=== PATIENT | female | born 1995 | race Caucasian/White ===

== ENCOUNTER 2024-02-24 14:38 | Outpatient (OUT) | payer BC, SELFPAY ==
--- NOTE | 2024-02-24 14:48 | US_ITS ---
The [address] [address] Patient Name: JOE LINARES MRN: [id number] date: 1995 Sex: F Assigned Patient Location: Current Patient Location: Accession/Order Number: [id number] Exam Date: 02/24/2024 15:05 Report Date: 02/24/2024 16:26 At the request of: EUGENE MAYERS Procedure: US pelvis transvaginal EXAMINATION: US pelvis transvaginal HISTORY: Pelvic Pain COMPARISON: No relevant comparison available. FINDINGS: Transvaginal The uterus is normal in size, contour and echotexture measuring 7.5 x 4.4 x 3.3 cm per the uterus is anteverted. Endometrium measures 10.9 mm, normal The right ovary is normal measuring 3.2 x 2.4 x 2.0 cm. Normal color and Doppler flow. Left ovary is normal measuring 3.4 x 2.5 x 2.6 cm. Normal color and Doppler flow US/US pelvis transvaginal IMPRESSION: Normal pelvic ultrasound Electronically authenticated by: PJ TSOLL Date: 02/24/2024 16:26
== END 2024-02-24 14:39 | disposition home or self-care (01) ==
LOC: US 14:40
PROVIDERS: Visit Provider Obstetrics & Gynecology
DX: R10.2 Pelvic and perineal pain (principal)
CPT/HCPCS: 76830

== ENCOUNTER 2024-04-06 11:11 | Outpatient (OUT) | payer BC, SELFPAY ==
[2024-04-06 12:10] LABS: Basophils Absolute Auto 0.1 10^3/uL (0.0-0.1); Basophils Percent Auto 0.9 % (0.2-2.0); Eosinophils Absolute Auto 0.2 10^3/uL (0.0-0.7); Eosinophils Percent Auto 2.8 % (0.9-7.0); Hematocrit 39.2 % (36.0-48.0); Hemoglobin 12.8 g/dL (12.0-16.0); Immature Granulocytes Abs Auto 0.01 10^3/uL (0.00-0.03); Immature Granulocytes Pct Auto 0.2 % (0.0-0.5); Lymphocytes Absolute Auto 2.3 10^3/uL (1.2-3.8); Lymphocytes Percent Auto 39.1 % (20.5-60.0); Mean Corpuscular HGB Conc 32.7 g/dL (29.9-35.2); Mean Corpuscular Hemoglobin 30.5 pg (26.7-34.0); Mean Corpuscular Volume 93.6 fL (81.0-99.0); Mean Platelet Volume 10.7 fL (9.5-13.5); Monocytes Absolute Auto 0.4 10^3/uL (0.3-0.8); Monocytes Percent Auto 6.1 % (1.7-12.0); Neutrophils Absolute Auto 2.9 10^3/uL (1.4-6.5); Neutrophils Percent Auto 50.9 % (43.0-75.0); Platelet Count 205 10^3/uL (150-450); Red Blood Count 4.19 10^6/uL (4.20-5.40); Red Cell Distribution Width 11.6 % (11.0-15.0); White Blood Count 5.8 10^3/uL (4.0-11.0)
[2024-04-06 12:15] LABS: Alanine Aminotransferase 19 U/L (14-59); Albumin Globulin Ratio 1.2; Albumin Level 3.8 g/dL (3.4-5.0); Alkaline Phosphatase 45 U/L (46-116); Anion Gap 6.7; Aspartate Amino Transferase 19 U/L (15-37); BUN Creatinine Ratio 16.7; Bilirubin Direct 0.1 mg/dL (0.0-0.2); Bilirubin Total 0.4 mg/dL (0.2-1.0); Calcium 9.6 mg/dL (8.5-10.1); Carbon Dioxide 31.4 mmol/L (21.0-32.0); Chloride 104 mmol/L (98-107); Estimated GFR (African America >60 (>=60); Estimated GFR (Non-African Ame >60 (>=60); Globulin 3.1 g/dL; Glucose 102 mg/dL (74-106); Potassium 4.1 mmol/L (3.5-5.1); Sodium 138 mmol/L (136-145); Total Protein 6.9 g/dL (6.4-8.2)
[2024-04-06 12:44] LABS: INR 0.97; Partial Thromboplastin Time 25.9 sec (22.3-36.2); Prothrombin Time 10.3 sec (9.0-11.6)
== END 2024-04-06 11:12 | disposition home or self-care (01) ==
LOC: PST 11:12
PROVIDERS: Visit Provider Obstetrics & Gynecology
DX: Z01.812 Encounter for preprocedural laboratory examination (principal); R10.2 Pelvic and perineal pain
CPT/HCPCS: 80048; 80076; 85025; 85610; 85730

== ENCOUNTER 2024-04-15 07:50 | Day surgery (SDC) | payer BC, SELFPAY ==
[2024-04-06 11:53] VITALS: BP 108/64; PULSE 50; TEMP 36.4; O2SAT 100; BMI 21.5
[2024-04-15] VITALS (14 sets, daily range): BP systolic 115–149; BP diastolic 45–82; PULSE 40–75; TEMP 36.3–36.7; O2SAT 96–100; BMI 21.5
[2024-04-15 08:12] LABS: Basophils Percent Auto 0.6 % (0.2-2.0); Eosinophils Absolute Auto 0.2 10^3/uL (0.0-0.7); Eosinophils Percent Auto 3.9 % (0.9-7.0); Hematocrit 38.1 % (36.0-48.0); Hemoglobin 12.7 g/dL (12.0-16.0); Immature Granulocytes Abs Auto 0.01 10^3/uL (0.00-0.03); Immature Granulocytes Pct Auto 0.2 % (0.0-0.5); Lymphocytes Absolute Auto 2.1 10^3/uL (1.2-3.8); Lymphocytes Percent Auto 40.5 % (20.5-60.0); Mean Corpuscular HGB Conc 33.3 g/dL (29.9-35.2); Mean Corpuscular Hemoglobin 31.9 pg (26.7-34.0); Mean Corpuscular Volume 95.7 fL (81.0-99.0); Mean Platelet Volume 10.5 fL (9.5-13.5); Monocytes Absolute Auto 0.4 10^3/uL (0.3-0.8); Monocytes Percent Auto 8.1 % (1.7-12.0); Neutrophils Absolute Auto 2.4 10^3/uL (1.4-6.5); Neutrophils Percent Auto 46.7 % (43.0-75.0); Platelet Count 212 10^3/uL (150-450); Red Blood Count 3.98 10^6/uL (4.20-5.40); Red Cell Distribution Width 11.9 % (11.0-15.0); White Blood Count 5.1 10^3/uL (4.0-11.0)
[2024-04-15 08:24] LABS: Amphetamine Screen Urine NEGATIVE (NEGATIVE); Barbiturates Screen Urine NEGATIVE (NEGATIVE); Benzodiazepines Screen Urine NEGATIVE (NEGATIVE); Buprenorphine Screen Urine POSITIVE (NEGATIVE); Cannabinoid Screen Urine POSITIVE (NEGATIVE); Cocaine Screen Urine NEGATIVE (NEGATIVE); Methadone Screen Urine NEGATIVE (NEGATIVE); Methamphetamines Screen Urine NEGATIVE (NEGATIVE); Opiate Screen Urine NEGATIVE (NEGATIVE); Oxycodone Screen Urine NEGATIVE (NEGATIVE); Phencyclidine Screen Urine NEGATIVE (NEGATIVE); Tricyclic Antidepressant Urine NEGATIVE (NEGATIVE)
[2024-04-15 08:33] LABS: HCG Quantitative <1 mIU/mL
[2024-04-15] MEDS: LACTATED RINGER'S SOLUTION 1,000 ML 50 ML IV (08:37)
--- NOTE | 2024-04-15 11:16 | PM.ONB ---
Brief Operative Note Date of procedure: 04/15/24 Pre-op diagnosis general: pelvic pain Post-op diagnosis: same as pre-op Procedure: NAME OF PROCEDURE: [diagnostic laparoscopy ] PROCEDURE: The patient was taken back to the Operating Room where she was placed in dorsal lithotomy position after given general anesthesia. The patient was prepped and draped in normal sterile fashion. A sponge stick was placed into the patient's vagina. Attention was turned to the patient's abdomen, where a small umbilical incision was made. The fascia was tented using Alpesh clamps and the fascia was entered sharply. Confirmation of intraabdominal placement of the 10 mm port was confirmed under direct visualization using a laparoscope. The patient's abdomen was then insufflated using CO2 gas with approximately 4 liters. A second port was placed left laterally, this was done under direct visualization with a 5 mm port. Survey of the patient's abdomen demonstrated normal liver and gallbladder. Survey of the patient's pelvic anatomy demonstrated normal appearing rt and lt ovary and tubes as well as normal appearing uterus. No endometrial implants could be noted, no evidence of any pelvic disease was seen, normal appearing pelvic cavity. All instruments were removed from the patient's abdomen. The patient's abdomen was deinsufflated of CO2 gas. The patient tolerated the procedure well. Sponge stick was removed from the patient's vagina. The patient's infraumbilical fascia was closed using #0 Vicryl on a GI needle. The patient's skin was closed laterally and infraumbilically using 4-0 Vicryl. The patient tolerated the procedure well. Sponge, lap and needle counts were correct x 2. The patient was taken to Recovery Room in stable condition. Anesthesia: XENIA Surgeon: Raymundo Seals Material Control Manager: Jenny Staley Estimated blood loss (mL): 5 Pathology: none sent Condition: stable Disposition: PACU Urinary Catheter Management Urinary Catheter Management Urethral: Cath placed during this visit: no
[2024-04-15] MEDS: LACTATED RINGER'S SOLUTION 1,000 ML 75 ML IV (11:28)
[2024-04-15] MEDS: LIDOCAINE HCL 1% 100 MG/10 ML MDV INJ (11:29)
== END 2024-04-15 14:00 | disposition home or self-care (01) ==
LOC: SURGOUT 07:51
PROVIDERS: Visit Provider Obstetrics & Gynecology
PROC: (CPT 840; principal; 2024-04-15 09:15)
DX: R10.2 Pelvic and perineal pain (principal); Z90.49 Acquired absence of other specified parts of digestive tract; F17.290 Nicotine dependence, other tobacco product, uncomplicated
CPT/HCPCS: 49320; 36415; 80307; 84702; 85025; J0131; J1100; J1885; J2250; J2405; J2704; J2710

== ENCOUNTER 2024-04-29 12:05 | Emergency (ER) | payer BC, SELFPAY ==
[2024-04-29 12:11] VITALS: BP 110/60; PULSE 77; TEMP 36.8; O2SAT 98; BMI 23.0
--- OUTSIDE RECORDS SUMMARY | 2024-04-29 12:12 | XMS_ITS | CCD ---
Author Organization [facility] Care Team Providers Care Grey Percher Name Role Phone PROVIDER, UNKNOWN Unavailable Unavailable PROVIDER, UNKNOWN Unavailable Unavailable PROVIDER, UNKNOWN Unavailable Unavailable PROVIDER, UNKNOWN Unavailable Unavailable PROVIDER, UNKNOWN Unavailable Unavailable PROVIDER, UNKNOWN Unavailable Unavailable Unavailable Primary Care Provider UnavailYAN Bagley Attending Unavailable SYL GERARDO Attending Unavailable NAT BOYD Consulting Unavailable SYL GERARDO Referring Unavailable THUMMALAPALLY RUSHEETJohn Admitting Unavaila ble THUMMALAPALLWILMER Sharpe Attending Unavaila ble NONE, XXXX Primary Care Physician Unavailab le FAWWAD, MAC H Primary Care Unavailable MARKER ., DR WARNER Admitting Unavailable MARKER ., DR WARNER Attending Unavailable MARKER ., DR WARNER Consulting Unavailable FAWWAD, MAC H Primary Care Unavailable RIANA ., DR KNIGHT Attending Unavailable RIANA ., DR KNIGHT Admitting Unavailable FAWWAD, MAC H Primary Care Unavailable RIANA ., DR KNIGHT Attending Unavailable RIANA ., DR KNIGHT Admitting Unavailable FAWWAD, MAC H Primary Care Unavailable TRUDY, DR SYEDA Edwards Attending Unavailable TRUDY, DR SYEDA Edwards Consulting Unavailable TRUDY, DR SYEDA Edwards Admitting Unavailable FAWWAD, MAC H Primary Care Unavailable SHAY, MARY Admitting Unavailable MARY DAY Attending Unavailable MARY DAY Consulting Unavailable JERMAN, DR PJ Cline Consulting Unavailable FAWWAD, MAC H Primary Care Unavailable FAWWAD, MAC H Admitting Unavailable FAWWAD, MAC H Attending Unavailable FAWWAD, MAC H Consulting Unavailable FAWWAD, MAC H Consulting Unavailable FAWWAD, MAC H Admitting Unavailable FAWWAD, MAC H Attending Unavailable MISC, DR MULLINS Primary Care Unavailable FAWWAD, MAC H Primary Care Unavailable JEAN ., JAIMIE Attending Unavailable JEAN ., JAIMIE Admitting Unavailable CHANA ., JERE DECKER Consulting UnavailJG Caballero Consulting Unavailable JESSI, JANNET Consulting Unavailable TRUDY, DR SYEDA Edwards Attending Unavailable TRUDY, DR SYEDA Edwards Consulting Unavailable TRUDY, DR SYEDA Edwards Admitting Unavailable MISC, DR MULLINS Primary Care Unavailable BENITO ARMIJO Consulting Unavailable FAWWAD, MAC H Primary Care Unavailable RIANA ., DR KNIGHT Attending Unavailable RIANA ., DR KNIGHT Consulting Unavailable RIANA ., DR KNIGHT Admitting Unavailable FAWWAD, MAC H Primary Care Unavailable MISC, DR MULLINS Attending Unavailable MISC, DR MULLINS Consulting Unavailable MISC, DR UMLLINS Admitting Unavailable FAWWAD, MAC H Primary Care Unavailable RAINA ., DR KNIGHT Admitting Unavailable RIANA ., DR KNIGHT Attending Unavailable RIANA ., DR KNIGHT Consulting Unavailable FAWMND, MAC H Primary Care Unavailable MISC, DR MULLINS Attending Unavailable MISC, DR MULLINS Consulting Unavailable MISC, DR MULLINS Admitting Unavailable FAWWAD, MAC H Primary Care Unavailable RIANA ., DR KNIGHT Attending Unavailable RIANA ., DR KNIGHT Consulting Unavailable RIANA ., DR KNIGHT Admitting Unavailable MISC, DR MULLINS Primary Care Unavailable RIANA ., DR KNIGHT Attending Unavailable RIANA ., DR KNIGHT Consulting Unavailable RIANA ., DR KNIGHT Admitting Unavailable FAWWAD, MAC H Primary Care Unavailable JEAN ., JAIMIE Admitting Unavailable JEAN ., JAIMIE Attending Unavailable MIREYA ., MR KIDD Consulting Unavailable LOTTIE BLAKE Consulting Unavailable EMERSON ., DR FERRER Admitting Unavailable FAWWAD, MAC H Primary Care Unavailable GRECHNY ., JERE DECKER Consulting Unavaileugenia NORMAN ., DR FERRER Attending Unavailable YVES MOREAU Consulting Unavailable TRUDY, DR SYEDA Edwards Attending Unavailable TRUDY, DR SYEDA Edwards Consulting Unavailable TRUDY, DR SYEDA Edwards Admitting Unavailable FAWWAD, MAC H Primary Care Unavailable JEAN ., JAIMIE Attending Unavailable Sandrita Oropeza Consulting Unavailable JEAN ., JAIMIE Admitting Unavailable JEAN ., JAIMIE Consulting Unavailable FAWMND, MAC H Primary Care Unavailable RIANA ., DR KNIGHT Attending Unavailable RIANA ., DR KNIGHT Admitting Unavailable RIANA ., DR KNIGHT Consulting Unavailable FAWWAD, MAC H Primary Care Unavailable RIANA ., DR KNIGHT Attending Unavailable RIANA ., DR KNIGHT Consulting Unavailable RIANA ., DR KNIGHT Admitting Unavailable SWETA GONZALEZ Consulting Unavailable SIMON ALVAREZ Consulting Unavailable JEAN ., JAIMIE Admitting Unavailable JEAN ., JAIMIE Attending Unavailable Sandrita Oropeza Consulting Unavailable [facility]ULL[place] Primary Care Unavailable GRECHNY ., JERE DECKER Consulting Unavailabl e JEAN ., JAIMIE Consulting Unavailable FAWWAD, MAC H Primary Care Unavailable [facility], DR URIEL Sullivan Consulting Unavailabl e RIANA ., DR KNIGHT Attending Unavailable RIANA ., DR KNIGHT Admitting Unavailable [place], DR PJ Cline Consulting Unavailable RIANA ., DR KNIGHT Consulting Unavailable GRECHNY ., JERE DECKER Consulting Unavailabl e CHIDI ORDAZ Consulting Unavailable [facility] Primary Care Unavailable RIANA ., DR KNIGHT Attending Unavailable RIANA ., DR KNIGHT Consulting Unavailable RIANA ., DR KNIGHT Admitting Unavailable FAWWAD, MAC H Primary Care Unavailable FAWWAD, MAC H Admitting Unavailable FAWWAD, MAC H Attending Unavailable POLICCAYDEN SOUZA Consulting Unavailable FAWWAD, MAC H Consulting Unavailable MD Feng Barros Attending Provider MD [facility] Primary Care Provider [phone] RAYMUNDO SEALS Referring Unavailable FAWWAD, [facility] Primary Care Unavailable RAYMUNDO SEALS R Attending Unavailable MALAKOOTI, YAZMIN Attending Unavailable FAWWAD, [facility] Primary Care Unavailable MALAKOOTI, YAZMIN Attending Unavailable [facility] Primary Care Unavailable Feng Barros Unavailable [phone] PAWEL FISH Attending Unavailab PAWEL Ramires Admitting Unavailab Brett Beckman Attending Unavailable Simon Hsu Attending Unavailable PAWEL FISH Attending Unavailab PAWEL Ramires Attending Unavailab le NO FAMILY, PHYSICIAN Primary Care Provider ROVERTO Jaramillo Emergency Provider Feng Barros Attending UnavailShaikh Mi Primary Care Unavailable Feng Barros Admitting UnavailJuventino Villanueva Attending Unavailable NO FAMILY, PHYSICIAN Primary Care Unavailable Juventino Cheung Admitting Unavailable RAYMUNDO SEALS Attending Unavailable NELY CHUNG Referring Unavailable RAYMUNDO SEALS Attending Unavailable ZOE SUNSHINE Attending Unavailable Allergies Allergy Classification Reported Allergen(s) Allergy Type Date of Onset Reaction(s) Facility (6 sources) Penicillins; Translations: [PENICILLINS] Propensity to adverse reactions to drug 0 [place], [place] (1 source) Shellfish Propensity to adverse reactions to drug 0 [place], [place] (3 sources) Penicillin; Translations: [penicillin] Drug Allergy UNSURE [facility] (3 sources) Seafood; Translations: [Seafood] Food allergy Eruption of skin (disorder) [facility] (3 sources) Doxycycline; Translations: [DOXYCYCLINE] Drug Allergy 3 Unknown Reaction [facility] Repository (2 sources) Penicillins Drug allergy (disorder) [address] [facility] Repository (3 sources) Shellfish; Translations: [shellfish derived] Allergy to substance 0 Unknown Reaction [facility] (1 source) SHELLFISH CONTAINING PRODUCTS; Translations: [SHELLFISH CONTAINING PRODUCTS] Propensity to adverse reactions to drug (disorder) 3 [facility] Repository (2 sources) Doxycycline Drug Allergy Unknown [facility] Other (2 sources) Penicillins (Antibiotic) Propensity to adverse reactions [facility] Other (1 source) Doxycycline Drug Allergy 4 [facility] Repository (1 source) Penicillins Drug allergy (disorder) 4 [facility] Repository Medications Current Medications Medication Drug Class(es) Dates Sig (Normalized) Sig (Original) baclofen 10 mg oral tablet (2 sources) gamma-Aminobutyric Acid-ergic Agonist Baclofen 10 MG Oral for 30 Days Active buprenorphine 8.6 mg / naloxone 2.1 mg sublingual tablet (3 sources) Partial Opioid Agonist, Opioid Antagonist Start: 02-01-2024 Buprenorphine-Nal oxone (Zubsolv) 8.6-2.1 mg tablet, sublingual Active 1 TAB SUBLINGUAL Twice daily February 01, 2024 12:00am Zubsolv 5.7-1.4 MG Sublingual for 15 Days Active busPIRone (4 sources) Start: 10-15-2022 busPIRone Oral , BID, Refills(s) 0 Start Date: 10/15/22 Status: Ordered busPIRone HCl 10 MG Oral for 30 Days Active ciprofloxacin 500 mg oral tablet (2 sources) Quinolone Antimicrobial Start: 10-10-2020 End: 10-19-2020 take 1 tablet by mouth every twelve hours ciprofloxacin (CIPRO) 500 MG tablet Take 1 tablet by mouth every 12 hours for 9 days 18 tablet 0 10/10/2020 10/19/2020 Active DULoxetine 30 mg delayed release oral capsule (5 sources) Serotonin and Norepinephrine Reuptake Inhibitor Start: 10-11-2020 take 1 capsule by mouth once daily DULoxetine (CYMBALTA) 30 MG extended release capsule Take 1 capsule by mouth daily 30 capsule 0 10/11/2020 Active Start: 10-11-2020 End: 10-10-2020 take 1 capsule by mouth once daily DULoxetine (CYMBALTA) 30 MG extended release capsule Take 1 capsule by mouth daily 30 capsule 0 10/11/2020 10/10/2020 Discontinued End: 10-10-2020 take 1 capsule by mouth once daily DULoxetine (CYMBALTA) 60 MG extended release capsule Take 60 mg by mouth daily 0 10/10/2020 Discontinued (Stop Taking at Discharge) FLUoxetine 20 mg oral capsule (5 sources) Serotonin Reuptake Inhibitor Start: 10-11-2020 take 1 capsule by mouth once daily FLUoxetine (PROZAC) 20 MG capsule Take 1 capsule by mouth daily 30 capsule 0 10/11/2020 Active Start: 10-11-2020 End: 10-10-2020 take 1 capsule by mouth once daily FLUoxetine (PROZAC) 20 MG capsule Take 1 capsule by mouth daily 30 capsule 0 10/11/2020 10/10/2020 Discontinued End: 01-13-2021 take 1 capsule by mouth once daily FLUoxetine (PROZAC) 10 MG capsule Take 10 mg by mouth daily 0 10/10/2020 Discontinued (Stop Taking at Discharge) Neurontin (11 sources) Anti-epileptic Agent Start: 10-15-2022 Neurontin Oral, TID, Refills(s) 0 Start Date: 10/15/22 Status: Ordered Start: 10-10-2020 End: 10-17-2020 take 2 capsules by mouth three times daily gabapentin (NEURONTIN) 400 MG capsule Take 2 capsules by mouth 3 times daily for 7 days. 42 capsule 0 10/10/2020 10/17/2020 Active Start: 12-01-2018 End: 02-01-2024 take 600 mg by mouth three times daily Gabapentin Discontinued 600 MG PO Three times daily December 01, 2018 1:00am February 01, 2024 2:10pm lamoTRIgine 100 mg oral tablet (9 sources) Mood Stabilizer, Anti-epileptic Agent Start: 10-10-2020 take 2 tablets by mouth once daily lamoTRIgine (LAMICTAL) 100 MG tablet Take 2 tablets by mouth daily 30 tablet 0 10/10/2020 Active Start: 10-10-2020 End: 10-10-2020 take 2 tablets by mouth once daily lamoTRIgine (LAMICTAL) 100 MG tablet Take 2 tablets by mouth daily 30 tablet 0 10/10/2020 10/10/2020 Discontinued (REORDER) Start: 12-01-2018 End: 02-01-2024 take 100 mg by mouth once daily Lamotrigine Discontinu ed 100 MG PO Daily December 01, 2018 1:00am February 01, 2024 2:10pm End: 10-06-2020 take 2 tablets by mouth once daily lamoTRIgine (LAMICTAL) 25 MG tablet Take 50 mg by mouth daily 0 10/06/2020 Discontinued (Therapy completed) nitrofurantoin, macrocrystals 25 mg / nitrofurantoin, monohydrate 75 mg oral capsule (1 source) Nitrofuran Antibacterial Start: 02-01-2024 take 1 capsule by mouth every twelve hours at mealtime Nitrofurantoin Monohyd/M-Cryst (Macrobid) 100 mg capsule Active 100 MG PO Q12H February 01, 2024 12:00am administer with a meal/food; swallow whole; do not open, crush, dissolve , or chew QUEtiapine 50 mg oral tablet (4 sources) Atypical Antipsychotic Start: 10-10-2020 take 1 tablet by mouth once daily QUEtiapine (SEROQUEL) 50 MG tablet Take 1 tablet by mouth nightly 30 tablet 0 10/10/2020 Active Start: 10-10-2020 End: 10-10-2020 take 1 tablet by mouth once daily QUEtiapine (SEROQUEL) 50 MG tablet Take 1 tablet by mouth nightly 30 tablet 0 10/10/2020 10/10/2020 Discontinued Start: 12-01-2018 End: 02-01-2024 take 1 tablet by mouth once daily Quetiapine (Seroquel) 100 mg Tablet Discontinued 100 MG PO Daily December 01, 2018 1:00am February 01, 2024 2:10pm 1000 ml sodium chloride 9 mg/ml injection (1 source) Start: 10-06-2020 0.9 % sodium chloride infusion sulfamethoxazole 400 mg / trimethoprim 80 mg oral tablet (2 sources) Dihydrofolate Reductase Inhibitor Antibacterial, Sulfonamide Antimicrobial Start: 10-15-2022 Bactrim 400 mg-80 mg Tab See Instructions, 15 tab(s), Refill(s) 5, 1 tab(s) Oral following sexual intercourse for UTI prevention., [facility]/pharmacy #[id number], 166, cm, 10/15/22 10:52:00 EST, Height/Length Dosing, 68, kg, 10/15/22 10:52:00 EST, Weight Dosing Start Date: 10/15/22 Status: Ordered traZODone hydrochloride 50 mg oral tablet (5 sources) Serotonin Reuptake Inhibitor Start: 10-10-2020 take 1 tablet by mouth once daily as needed for sleep traZODone (DESYREL) 50 MG tablet Take 1 tablet by mouth nightly as needed for Sleep 30 tablet 0 10/10/2020 Active Start: 10-10-2020 End: 10-10-2020 take 1 tablet by mouth once daily as needed for sleep traZODone (DESYREL) 50 MG tablet Take 1 tablet by mouth nightly as needed for Sleep 30 tablet 0 10/10/2020 10/10/2020 Discontinued End: 10-10-2020 take 100 mg by mouth once daily as needed TRAZODONE HCL PO Take 100 mg by mouth nightly as needed 0 10/10/2020 Discontinued (Stop Taking at Discharge) Completed/Discontinued Medications Medication Drug Class(es) Dates Sig (Normalized) Sig (Original) cyclobenzaprine hydrochloride 5 mg oral tablet (5 sources) Muscle Relaxant Start: 12-01-2018 End: 02-01-2024 take 5 mg by mouth twice daily Cyclobenzaprine Discontinued 5 MG PO Twice daily December 01, 2018 1:00am February 01, 2024 2:10pm take 1 tablet by jesusita three times daily as needed for muscle spasms cyclobenzaprine (FLEXERIL) 10 MG tablet Take 10 mg by mouth 3 times daily as needed for Muscle spasms 0 Active escitalopram 10 mg oral tablet (4 sources) Serotonin Reuptake Inhibitor End: 10-06-2020 take 1 tablet by mouth once daily escitalopram (LEXAPRO) 10 MG tablet Take 10 mg by mouth daily 0 10/06/2020 Discontinued (Therapy completed) End: 10-06-2020 Escitalopram Oxalate (LEXAPR O PO) Take by mouth daily 0 10/06/2020 Discontinued (Therapy completed) hydrOXYzine pamoate 50 mg oral capsule (2 sources) Antihistamine End: 10-06-2020 take 1 capsule by mouth four times daily as needed for anxiety hydrOXYzine (VISTARIL) 50 MG capsule Take 50 mg by mouth 4 times daily as needed for Anxiety 0 10/06/2020 Discontinued (Therapy completed) ibuprofen 400 mg oral tablet (2 sources) Nonsteroidal Anti-inflammatory Drug Start: 05-11-2018 End: 12-01-2018 Ibuprofen Discontinued 400 MG PO every 6 to 8 hours May 11, 2018 12:00am December 01, 2018 6:20am risperiDONE 0.25 mg oral tablet (3 sources) Atypical Antipsychotic End: 10-10-2020 take 1 tablet by mouth once daily risperiDONE (RISPERDAL) 0.25 MG tablet Take 0.25 mg by mouth daily 0 10/10/2020 Discontinued (Stop Taking at Discharge) Sertraline (2 sources) Serotonin Reuptake Inhibitor take 1 tablet by mouth once daily Zoloft 1 Tablet Oral Daily Not-Taking Problems Active Problems Problem Classification Problem Date Documented Date Episodic/Chronic Abdominal pain (12 sources) Lower abdominal pain; Translations: [Left lower quadrant pain] Onset: 04-28-2022 Episodic Anxiety disorders (4 sources) Anxiety; Translations: [Anxiety disorder, unspecified] Onset: 10-20-2022 10-02-2020 Chronic Conditions associated with dizziness or vertigo (4 sources) Dizziness and giddiness; Translations: [DIZZINESS AND GIDDINESS] Onset: 02-07-2023 Episodic Headache; including migraine (1 source) Migraine, unspecified, not intractable, without status migrainosus; Translations: [MIGRAINE UNS NOT INTRACT W/O SM] Onset: 02-10-2023 Chronic Hepatitis (5 sources) Chronic viral hepatitis C; Translations: [CHRONIC VIRAL HEPATITIS C] Onset: 07-14-2022 Chronic Menstrual disorders (9 sources) Irregular menstruation, unspecified; Translations: [Excessive and frequent menstruation with regular cycle] Onset: 05-27-2022 Chronic Mood disorders (8 sources) Depressive disorder; Translations: [Bipolar II disorder, most recent episode major depressive] Onset: 10-06-2020 10-06-2020 Chronic Other aftercare (1 source) Other bicycle repairman (current) drug therapy; Translations: [OTH CARE HOME CURRENT DRUG THERAPY] Onset: 02-10-2023 Episodic Other ear and sense organ disorders (4 sources) Otalgia, right ear; Translations: [OTALGIA RIGHT EAR] Onset: 01-12-2023 Episodic Other endocrine disorders (5 sources) Polycystic ovarian syndrome; Translations: [POLYCYSTIC OVARIAN SYNDROME] Onset: 05-26-2022 Chronic Other female genital disorders (3 sources) Abnormal uterine and vaginal bleeding, unspecified; Translations: [ABNORMAL UTERINE VAGINAL BLEED UNS] Onset: 10-07-2022 Chronic Other female genital disorders (3 sources) Unspecified dyspareunia; Translations: [UNSPECIFIED DYSPAREUNIA] Onset: 03-05-2022 Chronic Other hereditary and degenerative nervous system conditions (1 source) Restless legs syndrome; Translations: [RESTLESS LEGS SYNDROME] Onset: 10-20-2022 Chronic Other upper respiratory infections (3 sources) Acute upper respiratory infection, unspecified; Translations: [Acute pharyngitis, unspecified] Onset: 01-14-2023 Episodic Otitis media and related conditions (3 sources) Dysfunction of eustachian tube; Translations: [Unspecified perforation of tympanic membrane, right ear] Onset: 01-14-2023 04-26-2020 Episodic Ovarian cyst (2 sources) Cyst of right ovary; Translations: [Cyst of right ovary] Poisoning by other medications and drugs (2 sources) Overdose of opiate; Translations: [Poisoning by unspecified narcotics, accidental (unintentional), initial encounter] 12-31-2019 Episodic Residual codes; unclassified (1 source) Acquired absence of other specified parts of digestive tract; Translations: [ACQ ABSENCE OTH PART DIGESTV TRACT] Onset: 02-10-2023 Episodic Schizophrenia and other psychotic disorders (2 sources) Schizoaffective schizophrenia 10-02-2020 Chronic Substance-related disorders (11 sources) Nicotine dependence, cigarettes, uncomplicated; Translations: [Opioid dependence, uncomplicated] Onset: 09-15-2022 Chronic Substance-related disorders (3 sources) Cannabis use, unspecified, uncomplicated; Translations: [Finding related to substance use] Onset: 09-15-2022 07-31-2020 Episodic Unclassified (1 source) ACUTE CANDIDIASIS VULVA AND VAGINA; Translations: [ACUTE CANDIDIASIS VULVA AND VAGINA] Onset: 09-16-2022 Unclassified (1 source) CONTACT W/AND (SUSP) EXPOS COVID-19; Translations: [CONTACT W/AND (SUSP) EXPOS COVID-19] Onset: 09-15-2022 Unclassified (2 sources) COUGH, UNSPECIFIED; Translations: [COUGH, UNSPECIFIED] Onset: 05-07-2022 Unclassified (1 source) Low back pain, unspecified; Translations: [Low back pain, unspecified] Onset: 02-01-2024 Urinary tract infections (6 sources) Urinary tract infectious disease; Translations: [Urinary tract infection, site not specified] Onset: 09-16-2022 Episodic Past or Other Problems Problem Classification Problem Date Documented Date Episodic/Chronic Chronic obstructive pulmonary disease and bronchiectasis (1 source) Bronchitis, not specified as acute or chronic; Translations: [BRONCHITIS NOT SPEC ACUTE/CHRON] Onset: 05-07-2022 Episodic Complications of surgical procedures or medical care (4 sources) Infection following a procedure, other surgical site, initial encounter; Translations: [INFECT FOL PROC OTH SURG SITE INIT] Onset: 09-08-2022 Episodic Genitourinary symptoms and ill-defined conditions (3 sources) Dysuria; Translations: [DYSURIA] Onset: 09-13-2022 Episodic Hepatitis (4 sources) Viral hepatitis C; Translations: [Unspecified viral hepatitis C without hepatic coma] Onset: 02-25-2023 Episodic Immunizations and screening for infectious disease (2 sources) Encounter for screening for human papillomavirus (HPV); Translations: [Encounter for screening for human immunodeficiency virus [HIV]] Onset: 05-26-2022 Episodic Mycoses (1 source) Tinea pedis; Translations: [TINEA PEDIS] Onset: 06-02-2022 Episodic Other female genital disorders (1 source) Other noninflammatory disorders of ovary, fallopian tube and broad ligament; Translations: [OTH NONINFL D/O OVARY TUBE AND BRD LIG] Onset: 07-14-2022 Episodic Other female genital disorders (4 sources) Other specified noninflammatory disorders of vagina; Translations: [OTH SPEC NONINFLAMMATORY D/O VAGINA] Onset: 03-04-2022 Episodic Other infections; including parasitic (1 source) Personal history of other infectious and parasitic diseases; Translations: [PERSONAL HX OTH INF AND PARASITIC DZ] Onset: 09-15-2022 Episodic Other inflammatory condition of skin (3 sources) Pruritus, unspecified; Translations: [PRURITUS UNSPECIFIED] Onset: 05-31-2022 Episodic Other screening for suspected conditions (not mental disorders or infectious disease) (1 source) Encounter for screening for diabetes mellitus; Translations: [ENCOUNTER FOR SCREENING FOR DM] Onset: 05-26-2022 Episodic Ovarian cyst (1 source) Other ovarian cyst, right side; Translations: [OTHER OVARIAN CYST RIGHT SIDE] Onset: 09-15-2022 Episodic Spondylosis; intervertebral disc disorders; other back problems (1 source) Radiculopathy, lumbar region; Translations: [RADICULOPATHY LUMBAR REGION] Onset: 10-20-2022 Episodic Sprains and strains (2 sources) Strain of muscle, fascia and tendon of lower back, subsequent encounter; Translations: [Strain of muscle, fascia and tendon of lower back, subsequent encounter] Onset: 11-12-2022 Episodic Syncope (1 source) Syncope and collapse; Translations: [SYNCOPE AND COLLAPSE] Onset: 05-26-2022 Episodic Unclassified (2 sources) Bipolar (qualifier value) 10-02-2020 Unclassified (1 source) COUGH, UNSPECIFIED; Translations: [COUGH, UNSPECIFIED] Onset: 05-06-2022 Results Test Name Value Interpretation Reference Range Facility Automated erythrocytes count in urine sediment (number/area)Ordered By: PROVIDER TEMP on 02-01-2024 RBC Auto (Urine sed) [#/Area] 1-2 [HPF] 0-4 [facility] Automated leukocytes count i n urine sediment (number/area)Ordered By: PROVIDER TEMP on 02-01-2024 WBC Auto (Urine sed) [#/Area] 5-9 [HPF] 0-4 [facility] Automated urine color determ inationOrdered By: PROVIDER TEMP on 02-01-2024 Color (U) Yellow Normal Yellow [facility] Comment on above: Order Comment: Reaso n for Exam Hepatitis C Performed By: #### H BCAB, HCV RNAQNT, HCV HARLAN, HBSAB, HBSAG #### [facility] , #### CMP, DIFF CBC, PT #### [facility] [address] [place] [address] Bilirubin Test strip Ql (U)O rdered By: PROVIDER TEMP on 02-01-2024 Bilirubin Ql (U) Negative Negative [facility] Dipstick and Microscopicon 0 02-01-2024 Appearance (U) Clear Normal Clear [facility] Comment on above: Order Comment: Reaso n for Exam Hepatitis C Performed By: #### H BCAB, HCV RNAQNT, HCV HARLAN, HBSAB, HBSAG #### [facility] , #### CMP, DIFF CBC, PT #### [facility] [address] [place] [address] [place] Bacteria,Urine 1+ High None Seen [facility] Comment on above: Order Comment: Reaso n for Exam Hepatitis C Performed By: #### H BCAB, HCV RNAQNT, HCV HARLAN, HBSAB, HBSAG #### [facility] , #### CMP, DIFF CBC, PT #### [facility] [address] [place] [address] [place] Bilirubin,Urine Negative Normal Negative [facility] Comment on above: Order Comment: Reaso n for Exam Hepatitis C Performed By: #### H BCAB, HCV RNAQNT, HCV HARLAN, HBSAB, HBSAG #### [facility] , #### CMP, DIFF CBC, PT #### [address] Glucose Ql (U) Normal Normal Normal [facility] Comment on above: Order Comment: Reaso n for Exam Hepatitis C Performed By: #### H BCAB, HCV RNAQNT, HCV HARLAN, HBSAB, HBSAG #### [facility] , #### CMP, DIFF CBC, PT #### [address] Hyaline Casts,Urine None Seen Normal 0-8 [facility] Comment on above: Order Comment: Reaso n for Exam Hepatitis C Result Comment: PERF ORMED BY: [place] [address] PATHOLOGIST DIVING COACH HUMBERTO JOLLY M.D. Performed By: #### H BCAB, HCV RNAQNT, HCV HARLAN, HBSAB, HBSAG #### [facility] , #### CMP, DIFF CBC, PT #### [address] Ketones Ql (U) Negative Normal Negative [facility] Comment on above: Order Comment: Reaso n for Exam Hepatitis C Performed By: #### H BCAB, HCV RNAQNT, HCV HARLAN, HBSAB, HBSAG #### [facility] , #### CMP, DIFF CBC, PT #### [address] Leukocyte esterase Test strip Ql (U) 2+ High Negative [facility] Comment on above: Order Comment: Reaso n for Exam Hepatitis C Performed By: #### H BCAB, HCV RNAQNT, HCV HARLAN, HBSAB, HBSAG #### [facility] , #### CMP, DIFF CBC, PT #### [address] Nitrite,Urine Negative Normal Negative [facility] Comment on above: Order Comment: Reaso n for Exam Hepatitis C Performed By: #### H BCAB, HCV RNAQNT, HCV HARLAN, HBSAB, HBSAG #### [facility] , #### CMP, DIFF CBC, PT #### [address] Occult Blood,Urine Trace High Negative [facility] Comment on above: Order Comment: Reaso n for Exam Hepatitis C Result Comment: PERF ORMED BY: [place] [address] PATHOLOGIST DIVING COACH HUMBERTO JOLLY M.D. Performed By: #### H BCAB, HCV RNAQNT, HCV HARLAN, HBSAB, HBSAG #### [facility] , #### CMP, DIFF CBC, PT #### [address] Protein,Urine Negative Normal Negative [facility] Comment on above: Order Comment: Reaso n for Exam Hepatitis C Performed By: #### H BCAB, HCV RNAQNT, HCV HARLAN, HBSAB, HBSAG #### [facility] , #### CMP, DIFF CBC, PT #### [facility] [address] [place] [address] RBC,Urine 1-2 Normal 0-4 [facility] Comment on above: Order Comment: Reaso n for Exam Hepatitis C Performed By: #### H BCAB, HCV RNAQNT, HCV HARLAN, HBSAB, HBSAG #### [facility] , #### CMP, DIFF CBC, PT #### [facility] [address] [place] [address] [place] Specificy [place],Urine 1.004 Normal 1.00 1-1.03 0 [facility] Comment on above: Order Comment: Reaso n for Exam Hepatitis C Performed By: #### H BCAB, HCV RNAQNT, HCV HARLAN, HBSAB, HBSAG #### [facility] , #### CMP, DIFF CBC, PT #### [address] Squamous Epithelial Cell,Urine 5-9 High 0-2 [facility] Comment on above: Order Comment: Reaso n for Exam Hepatitis C Performed By: #### H BCAB, HCV RNAQNT, HCV HARLAN, HBSAB, HBSAG #### [facility] , #### CMP, DIFF CBC, PT #### [facility] [address] [place] [address] Urobilinogen,Urine Normal Normal Normal [facility] Comment on above: Order Comment: Reaso n for Exam Hepatitis C Performed By: #### H BCAB, HCV RNAQNT, HCV HARLAN, HBSAB, HBSAG #### [facility] , #### CMP, DIFF CBC, PT #### [address] WBC,Urine 5-9 High 0-4 [facility] Comment on above: Order Comment: Reaso n for Exam Hepatitis C Performed By: #### H BCAB, HCV RNAQNT, HCV HARLAN, HBSAB, HBSAG #### [facility] , #### CMP, DIFF CBC, PT #### [facility] [address] [place] [address] Ketones Auto test strip (U) [Mass/Vol]Ordered By: PROVIDER TEMP on 02-01-2024 Ketones (U) [Mass/Vol] Negative Negative [facility] - UrinalysisOrder ed By: PROVIDER TEMP on 02-01-2024 Hyaline casts LM Ql (Urine sed) None seen [LPF] 0-8 [facility] Nitrite Test strip Ql (U)Ord ered By: PROVIDER TEMP on 02-01-2024 Nitrite Ql (U) Negative Negative [facility] Protein Auto test strip (U) [Mass/Vol]Ordered By: PROVIDER TEMP on 02-01-2024 Protein (U) [Mass/Vol] Negative Negative [facility] Specific gravity Auto test s trip (U) [Rel density]Ordered By: PROVIDER TEMP on 02-01-2024 Specific gravity (U) [Rel density] 1.004 1.001-1.03 0 [facility] Squamous epithelial cells de tection in urine sediment by light microscopyOrdered By: PROVIDER TEMP on 02-01-2024 Epithelial cells.squamous LM Ql (Urine sed) 5-9 [HPF] 0-2 [facility] Urine Cultureon 02-01-2024 Bacteria identified Cx Nom (U) ORGANISM: Escherichia coli (O:ESCCOL) [place] Count >100,000 Aerobic JACQUELINE Charge ([id number]) SUSCEPTIBILITY ORGANISM: O:ESCCOL ANTIBIOTIC INTERPRETATION JACQUELINE Amikacin S <16 Amoxacillin/K Clavulanate S <8 Ampicillin S <8 Ampicillin/Sulbactam S <4 Aztreonam S <4 Cefazolin S <2 Cefepime S <2 Ceftazidime S <1 Ceftazidime/Avibactam S <4 Ceftolozane/Tazobactam S <2 Ceftriaxone S <1 Cefuroxime S <4 Ciprofloxacin S <0.25 Ertapenem S <0.5 Gentamicin S <2 Levofloxacin S <0.5 Meropenem S <1 Meropenem/Vaborbactam S <2 Nitrofurantoin S <32 Piperacillin/Tazobactam S <8 Tetracycline S <4 Tigecycline S <2 Tobramycin S <2 Trimethoprim/Sulfamethoxaz ole S <0.5 S = SUSCEPTIBLE I = INTERMEDIATE R = RESISTANT BLANK = DATA NOT AVAILABLE, OR DRUG NOT ADVISABLE OR TESTED R* = RESISTANCE DUE TO EXTENDED SPECTRUM BETA-LACTAMASES ESBL = EXTENDED SPECTRUM BETA-LACTAMASE TFG = THYMIDINE-DEPENDENT STRAIN MARIBETH = BETA-LACTAMASE POSITIVE IB = INDUCIBLE BETA-LACTAMASE. APPEARS IN PLACE OF 'S' WITH SPECIES KNOWN TO POSSESS INDUCIBLE BETA-LACTAMASES. POTENTIALLY THEY MAY BECOME RESISTANT TO ALL B-LACTAM DRUGS. PERFORMED BY: [address] [place] [address] PATHOLOGIST DIVING COACH HUMBERTO JOLLY M.D. Normal [facility] Comment on above: Performed By: #### H BCAB, HCV RNAQNT, HCV HARLAN, HBSAB, HBSAG #### [facility] , #### CMP, DIFF CBC, PT #### [facility] [address] Urine bacteria detection by automated methodOrdered By: PROVIDER TEMP on 02-01-2024 Bacteria Auto Ql (U) 1+ [HPF] None Seen [facility] Urine clarity by refractomet ry automatedOrdered By: PROVIDER TEMP on 02-01-2024 Clarity Refractometry automated (U) Clear Clear [facility] Urine glucose measurement by automated test strip (mass/volume)Ordered By: PROVIDER TEMP on 02-01-2024 Glucose Auto test strip (U) [Mass/Vol] Normal mg/dL Normal [facility] Urine hemoglobin detection b y automated test stripOrdered By: PROVIDER TEMP on 02-01-2024 Hemoglobin Auto test strip Ql (U) Trace Negative [facility] Urine leukocyte esterase det ection by automated test stripOrdered By: PROVIDER TEMP on 02-01-2024 Leukocyte esterase Auto test strip Ql (U) 2+ Negative [facility] Urine pH measurement by auto mated test stripOrdered By: PROVIDER TEMP on 02-01-2024 pH (U) 6.5 [pH] Normal 5.0-9.0 [facility] Comment on above: Order Comment: Reaso n for Exam Hepatitis C Performed By: #### H BCAB, HCV RNAQNT, HCV HARLAN, HBSAB, HBSAG #### [facility] , #### CMP, DIFF CBC, PT #### [facility] [address] [place] [address] Urobilinogen Auto test strip (U) [Mass/Vol]Ordered By: PROVIDER TEMP on 02-01-2024 Urobilinogen (U) [Mass/Vol] Normal mg/dL Normal [facility] Consent for Treatmenton 05-29 Consent for Treatment [id number]:127 Normal [facility] Discharge Instructionson Discharge Instructions [id number]:127 Normal [facility] ED Clinical Summaryon 2022 ED Clinical Summary (Inserted Image. Glo ble to display) [place] [id number] ED Clinical Summary Person Information Name: JOE RAJPUT[place] Age: 27 Years : 1995 Sex: Female Language: Filipino PCP: NONE, XXXX Marital Status: Single Visit Id: Visit Reason: Medical screening exam; WANTS LEFT THUMB STITCHES TAKEN OUT Speciality: Acuity: 5 Enc Type: Emergency Med Service: Emergency Arrival: 06/07/2023 16:49:01 Discharge: 06/07/2023 17:17:54 LOS: 000 00:28 Checkin: 06/07/2023 16:49:01 Checkout: 06/07/2023 17:17:54 Dispo Type: Home (Routine DC) EVENTS: Event Name Event Status Request Date/Time Start Date/Time Complete Date/Time Arrive Complete 06/07/2023 16:49:01 06/07/2023 16:49:01 06/07/2023 16:49:01 Document Home Meds Request 06/07/2023 16:49:01 Triage Complete 06/07/2023 16:49:01 06/07/2023 17:07:53 06/07/2023 17:07:53 Registration Complete 06/07/2023 16:56:13 06/07/2023 16:56:13 06/07/2023 16:56:13 Reg Complete Request 06/07/2023 16:56:13 Reg Bed Request Complete 06/07/2023 16:56:13 06/07/2023 16:56:13 06/07/2023 16:56:13 Bed Assign Complete 06/07/2023 17:04:25 06/07/2023 17:04:25 06/07/2023 17:04:25 Dr Exam Complete 06/07/2023 17:04:25 06/07/2023 17:07:42 06/07/2023 17:07:42 RN Exam Complete 06/07/2023 17:04:25 06/07/2023 17:15:20 06/07/2023 17:15:20 Registration Request 06/07/2023 17:07:42 Discharge Complete 06/07/2023 17:09:04 06/07/2023 17:18:03 06/07/2023 17:18:03 Transfer Complete 06/07/2023 17:18:03 06/07/2023 17:18:03 06/07/2023 17:18:03 ADDRESS: [facility] [id number] PHYS DOC NOTES: MEDICAL INFORMATION: Prescriptions Given: Medications to Continue with No Changes Other Medications busPIRone By Mouth 2 times a day. gabapentin (Neurontin) By Mouth 3 times a day. sulfamethoxazole-trimethop rim (Bactrim 400 mg-80 mg Tab) 1 tab(s) Oral following sexual intercourse for UTI prevention.. Refills: 5. PATIENT EDUCATION INFORMATION: Instructions: Suture Removal, Care After Follow up: With: Address: When: Martha Shilohmella In 3 days 06/10/2023 Comments: Call the office of your primary care doctor to arrange for follow-up within the above-stated timeframe. Follow-up with your primary care doctor about this ED visit. You should review your labs, imaging, and diagnoses from this ED visit with your primary care physician. There are occasionally non-emergent findings that require additional follow-up after your ED visit. If you were prescribed medications you should discuss possible side-effects and drug interactions with your pharmacist. Call 911 or go to the nearest Emergency Department if you develop any new or worsening symptoms. DIAGNOSIS: Encounter for removal of sutures Normal [facility] ED Note-Physicianon 06-07-20 ED Note-Physician Basic Information Time Seen: Simon Hsu DO 06/07/2023 17:07 Chief Complaint pt. presents to the ed with c.o needing stich removal. pt. alert and oriented x 4 upon arrival. History of Present Illness 27-year-old female to the emergency department chief complaint of sutures in her left thumb. She was told they need to be removed in 5 to 7 days. She denies any redness, warmth, discharge. Presenting for removal. Review of Systems A 10 point review of systems is negative except as noted above. Medical and Surgical History: Reviewed and noted Social history: Lives at home Tobacco: Denies Physical Exam Vitals & Measurements T: 36.8 ?C(Oral) HR: 51(Peripheral) RR: 18 BP: 119/69 SpO2: 100% HT: 165.10 cm WT: 59 kg BMI: 21.65 Left hand: Sutures in place without evidence of infection. Medical Decision Making Sutures were easily removed in triage. Wound care instructions given. Patient was discharged home. Assessment/Plan Encounter for removal of sutures (Z48.02: Encounter for removal of sutures) Disposition Plan Patient Discharge Condition Stable Discharge Disposition Home Discharge Prescription List Prescriptions No active prescription medications Follow-up With When Contact Information Martha Mendoza In 3 days 06/10/2023 EDT Additional Instructions: Call the office of your primary care doctor to arrange for follow-up within the above-stated timeframe. Follow-up with your primary care doctor about this ED visit. You should review your labs, imaging, and diagnoses from this ED visit with your primary care physician. There are occasionally non-emergent findings that require additional follow-up after your ED visit. If you were prescribed medications you should discuss possible side-effects and drug interactions with your pharmacist. Call 911 or go to the nearest Emergency Department if you develop any new or worsening symptoms. Patient Education Suture Removal, Care After Problem List/Past Medical History Ongoing Bipolar disorder ETD (eustachian tube dysfunction) Frequent UTI Smoker Historical Anxiety Bipolar Depression Schizoaffective schizophrenia Procedure/Surgical History Appendectomy; (2013), Cholecystectomy; (2010), Adenoidectomy, primary; younger than age 12, Cyst. Medications Inpatient No active inpatient medications Home Bactrim 400 mg-80 mg Tab, See Instructions, 5 refills busPIRone, Oral, BID Neurontin, Oral, TID Allergies Seafood (Rash) penicillin (UNSURE) Social History Alcohol Substance Abuse Marijuana, 05/25/2023 Current, Marijuana, Daily, Started age 12 Years., 10/15/2022 Tobacco 10 or more cigarettes (1/2 pack or more)/day in last 30 days Tobacco Use:. Cigarettes, 10/15/2022 Family History Diabetes mellitus type 1: Mother. High blood pressure: Mother. Migraine: Mother. Lab Results No qualifying data available. Diagnostic Results No qualifying data available. Normal [facility] Comment on above: Result Comment: Elec tronically Signed By: Simon Hsu DO.vasile\Date and Time Signed: 06/07/23 21:15 EDT ED Patient Education Noteon 06-07-2023 ED Patient Education Note Surgery Suture Removal, Care After The following information offers guidance on how to care for yourself after your procedure. Your health care provider may also give you more specific instructions. If you have problems or questions, contact your health care provider. What can I expect after the procedure? After your stitches (sutures) are removed, it is common to have: ? Some discomfort and swelling in the area. ? Slight redness in the area. Follow these instructions at home: If you have a dressing: ? Wash your hands with soap and water for at least 20 seconds before and after you change your bandage (dressing). If soap and water are not available, use hand broadcast maintenance engineer. ? Change your dressing as told by your health care provider. If your dressing becomes wet or dirty, or develops a bad smell, change it as soon as possible. ? If your dressing sticks to your skin, pour warm, clean water over it until it loosens and can be removed without pulling apart the wound edges. Pat the area dry with a soft, clean towel. Do not rub the wound because that may cause bleeding. Wound care ? Check your wound every day for signs of infection. Check for: ? More redness, swelling, or pain. ? Fluid or blood. ? New warmth, a rash, or hardness at the wound site. ? Pus or a bad smell. ? Wash your hands with soap and water for at least 20 seconds before and after touching your wound. If soap and water are not available, use hand broadcast maintenance engineer. ? Keep the wound area dry and clean. Clean and pat the wound dry as told by your health care provider. ? Apply cream or ointment only as told by your health care provider. ? If skin glue or adhesive strips were applied after sutures were removed, leave these closures in place. They may need to stay in place for 2 weeks or longer. If adhesive strip edges start to loosen and curl up, you may trim the loose edges. Do not remove adhesive strips completely unless your health care provider tells you to do that. ? Continue to protect the wound from injury. ? Do not pick at your wound. Picking can cause an infection. Bathing ? Do not take baths, swim, or use a hot tub until your health care provider approves. Ask your health care provider if you may take showers. ? Follow these steps for showering: ? If you have a dressing, remove it before getting into the shower. ? In the shower, allow soapy water to get on the wound. Avoid scrubbing the wound. ? When you get out of the shower, dry the wound by patting it with a clean towel. ? Reapply a dressing over the wound, if needed. Scar care When your wound has completely healed, help decrease the size of your scar by: ? Wearing sunscreen over the scar or covering it with clothing when you are outside. New scars get sunburned easily, which can make scarring worse. ? Gently massaging the scarred area. This can decrease scar thickness. General instructions ? Take znzv-cgm-vioovax and prescription medicines only as told by your health care provider. ? Keep all follow-up visits. This is important. Contact a health care provider if: ? You have more redness, swelling, or pain around your wound. ? You have fluid or blood coming from your wound. ? You have new warmth, a rash, or hardness at the wound site. ? You have pus or a bad smell coming from your wound. ? Your wound opens up. Get help right away if: ? You have a fever or chills. ? You have red streaks coming from your wound. Summary ? After your sutures are removed, it is common to have some discomfort and swelling in the area. ? Wash your hands with soap and water before you change your bandage (dressing). ? Keep the wound area dry and clean. Do not take baths, swim, or use a hot tub until your health care provider approves. This information is not intended to replace advice given to you by your health care provider. Make sure you discuss any questions you have with your health care provider. Document Revised: 01/07/2022 Document Reviewed: 01/07/2022 Elsevier Patient Education ? 2022 [employer] [facility] ED Patient Summaryon 023 ED Patient Summary (Inserted Image. Glo ble to display) [place] [id number] Patient Discharge Instructions Person Information Name: JOE RAJPUT Age: 27 Years Arrival Date: 06/07/2023 16:49:01 Discharge Diagnosis: Encounter for removal of sutures Primary Care Physician: NONE, XXXX Provider Information Primary Provider: Simon Hsu DO Advanced Retail Area Manager:None The exam and treatment you received in the Emergency Department were for an urgent problem and are not intended as complete care. It is important that you follow up with a doctor, nurse practitioner, or physician?s residential real estate assistant for ongoing care. If your symptoms become worse or you do not improve as expected and you are unable to reach your usual health care provider, you should return to the Emergency Department. We are available 24 hours a day. JOE RAJPUT has been given the following list of patient education materials, prescriptions and follow-up instructions: Follow-up Instructions: With: Address: When: Martha Mendoza In 3 days 06/10/2023 Comments: Call the office of your primary care doctor to arrange for follow-up within the above-stated timeframe. Follow-up with your primary care doctor about this ED visit. You should review your labs, imaging, and diagnoses from this ED visit with your primary care physician. There are occasionally non-emergent findings that require additional follow-up after your ED visit. If you were prescribed medications you should discuss possible side-effects and drug interactions with your pharmacist. Call 911 or go to the nearest Emergency Department if you develop any new or worsening symptoms. In the event that this physician does not participate in your insurance network, please consult with your insurance company to find a nearby participating provider. Patient Education Materials: Suture Removal, Care After A MESSAGE TO ALL PATIENTS REGARDING OPIOIDS PRESCRIPTION OPIOIDS: WHAT YOU NEED TO KNOW Prescription opioids can be used to help relieve qnarxclo-tx-dszkjt pain and are often prescribed following a surgery or injury, or for certain health conditions. These medications can be an important part of the treatment but also come with serious risks. It is important to work with your healthcare provider to make sure you are getting the safest, most effective care. WHAT ARE THE RISKS AND SIDE EFFECTS OF OPIOID USE? Prescription opioids carry serious risks of addiction and overdose, especially with prolonged use. An opioid overdose, often marked by slowed breathing, can cause sudden . The use of prescription opioids can have a number of side effects as well, even when taken as directed: ? Tolerance?meaning you might need to take more of the medication for the same pain relief ? Physical dependence?meaning you have symptoms of withdrawal when a medication is stopped ? Increased sensitivity to pain ? Constipation ? Nausea, vomiting, and dry mouth ? Sleepiness and dizziness ? Confusion ? Depression ? Low levels of testosterone that can result in lower sex drive, energy, and strength ? Itching and sweating RISKS ARE GREATER WITH: ? History of drug misuse, substance use disorder, or overdose ? Mental health conditions (such as depression or anxiety) ? Sleep apnea ? Older age (65 years and older) ? Avoid alcohol while taking prescription opioids. Also, unless specifically advised by your health care provider, medications to avoid include: ? Benzodiazepines (such as Xanax or Valium) ? Muscle relaxants (such as Soma or Flexeril) ? Hypnotics (such as Ambien or Lunesta) ? Other prescription opioids KNOW YOUR OPTIONS Talk to your health care provider about ways to manage your pain that don?t involve prescription opioids. Some of these options may actually work better and have fewer risks and side effects. Options may include: ? Pain relievers such as acetaminophen, ibuprofen, and naproxen ? Some medication that are also used for depression or seizures ? Physical therapy and exercise ? Cognitive behavioral therapy, a psychological, goal-directed approach, in which patients learn how to modify physical, behavioral, and emotional triggers of pain and stress. IF YOU ARE PRESCRIBED OPIOIDS FOR PAIN: ? Never take opioids in greater amounts or more often than prescribed. ? Follow up with your primary health care provider. o Work together to create a plan on how to manage your pain. o Talk about ways to help manage your pain that don?t involve prescription opioids. o Talk about any and all concerns and side effects. ? Help prevent misuse and abuse o Never sell or share prescription opioids. o Never use another person?s prescription opioids. ? Store prescription opioids in a secure place and out of reach of others (this may include visitors, children, friends, and family). ? Saf (more content not included)... Normal [facility] Consent for Treatmenton Consent for Treatment [id number]:127 Normal [facility] Consent for Treatmenton 04-29 Consent for Treatment [id number]:127 Normal [facility] Discharge Instructionson Discharge Instructions [id number]:127 Normal [facility] ED Clinical Summaryon 2022 ED Clinical Summary (Inserted Image. Glo ble to display) [place] [id number] ED Clinical Summary [facility] 27 Years : 1995 Sex: Female Language: Filipino PCP: NONE, XXXX Marital Status: Single Visit Id: Visit Reason: Finger laceration; FINGER LACERATION Speciality: Acuity: 4 Enc Type: Emergency Med Service: Emergency Arrival: 05/25/2023 07:34:13 Discharge: 05/25/2023 08:35:52 LOS: 000 01:01 Checkin: 05/25/2023 07:34:13 Checkout: 05/25/2023 08:35:52 Dispo Type: Home (Routine DC) EVENTS: Event Name Event Status Request Date/Time Start Date/Time Complete Date/Time Arrive Complete 05/25/2023 07:34:13 05/25/2023 07:34:13 05/25/2023 07:34:13 Document Home Meds Request 05/25/2023 07:34:13 Triage Complete 05/25/2023 07:34:13 05/25/2023 07:44:29 05/25/2023 07:44:29 Bed Assign Complete 05/25/2023 07:36:56 05/25/2023 07:36:56 05/25/2023 07:36:56 Dr Exam Complete 05/25/2023 07:36:56 05/25/2023 07:38:56 05/25/2023 07:38:56 RN Exam Complete 05/25/2023 07:36:56 05/25/2023 07:48:50 05/25/2023 07:48:50 Registration Complete 05/25/2023 07:38:56 05/25/2023 07:39:27 05/25/2023 07:39:27 Reg Complete Request 05/25/2023 07:39:27 Reg Bed Request Complete 05/25/2023 07:39:27 05/25/2023 07:39:27 05/25/2023 07:39:27 Patient Care Request 05/25/2023 07:43:22 Meds Admin Complete 05/25/2023 07:48:31 05/25/2023 08:34:27 Meds Admin Complete 05/25/2023 08:04:23 05/25/2023 08:34:27 Patient Care Request 05/25/2023 08:04:23 Discharge Complete 05/25/2023 08:05:04 05/25/2023 08:36:01 05/25/2023 08:36:01 Transfer Complete 05/25/2023 08:36:01 05/25/2023 08:36:01 05/25/2023 08:36:01 ADDRESS: [address] [facility] [id number] PHYS DOC NOTES: MEDICAL INFORMATION: Prescriptions Given: New Medications [facility], [address] [place], [place] [id number], [phone] cephalexin (Keflex 500 mg Cap) 1 Capsules By Mouth every 12 hours for 7 Days. Refills: 0. Medications to Continue with No Changes Other Medications busPIRone By Mouth 2 times a day. gabapentin (Neurontin) By Mouth 3 times a day. sulfamethoxazole-trimethop rim (Bactrim 400 mg-80 mg Tab) 1 tab(s) Oral following sexual intercourse for UTI prevention.. Refills: 5. PATIENT EDUCATION INFORMATION: Instructions: Sutured Wound Care, Jrep-[id number]; Laceration Care, Adult Follow up: With: Address: When: Sweta Torrez [address] [place] [address] Business (2) Within 5 to 7 days Comments: For suture removal With: Address: When: XXXX NONE , [place] In 3 days DIAGNOSIS: Thumb laceration Normal [facility] ED Note-Physicianon 05-25-20 23 ED Note-Physician Basic Information Time Seen: Brett Hunter DO 05/25/2023 07:38 Chief Complaint cut Lt thumb on knife around 0100, used skin glue but opened back up History of Present Illness 27 female presents emergency department with laceration to the left thumb. Patient states that she was learning to cook with her significant other when she accidentally lacerated the dorsal surface of the left thumb. Last tetanus has been updated within the last 5 years. This did occur around 0 100 roughly 7 hours prior to arrival. Patient states that she used some skin glue to try to close the wound but this was not successful and it busted open with increased bleeding and pain so she presents for evaluation. She denies any other associated symptoms or complaints no other prior treatments. No other aggravating or relieving factors no other associated symptoms no other prior treatments or complaints. Family: Reviewed and noncontributory Social: lives at home Review of systems negative unless otherwise specified in the HPI. Physical Exam Vitals & Measurements T: 36.4 ?C(Oral) HR: 61(Peripheral) RR: 14 BP: 113/60 SpO2: 99% HT: 165 cm WT: 57 kg BMI: 20.94 Vital Signs reviewed and noted. General: Alert, no acute distress, patient resting comfortably Skin: Left thumb examination: There is horizontally oriented 0.75 cm laceration on the dorsal surface of the left thumb distal to the MCP on that proximal phalanx but this does not extend over the extensor tendon which is intact there is no injury to the tendon. This is a deeper wound into the subcutaneous tissues but it does not gape. Thumb has full range of motion there is no deficit. Head: Normocephalic, atraumatic Eye: Normal conjunctiva Cardiac: Normal peripheral perfusion Respiratory: No acute distress Musculoskeletal: As described above Neurological: alert and oriented, normal sensory and motor observed. Psychiatric: Cooperative Procedure Area prepped and draped in normal standard sterile fashion. Wound was cleansed using hibiclens soap. Wound was anesthetized using 5 mL of 1% plain lidocaine. After adequate anesthesia 3 simple interrupted stitches using 4-0 nylon stitches were placed. Patient tolerated this procedure well. She is treated with topical antibiotics and dressing applied by nursing staff. She is educated to have stitches removed in 5-7 days. 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 She does tell me that she can take Keflex without difficulty. Assessment/Plan Thumb laceration (S61.019A: Laceration without foreign body of unspecified thumb without damage to nail, initial encounter) Orders: bacitracin topical, 1 adia, Ointment, Topical, Once, Stop date 05/25/23 8:04:00 EDT, STAT, Start date 05/25/23 8:04:00 EDT cephalexin, 500 mg = 1 cap(s), Oral, q12hr, X 7 day(s), # 14 cap(s), Refills(s) 0, Pharmacy: [facility], 165, cm, 05/25/23 7:44:00 EDT, Height/Length Dosing, 57, kg, 05/25/23 7:44:00 EDT, Weight Dosing lidocaine, 50 mg, 5 mL, Injection, SubCutaneous, Once, Stop date 05/25/23 7:48:00 EDT, STAT, Start date 05/25/23 7:48:00 EDT Dressing Care/Change Disposition Plan Discharge Prescription List Prescriptions Keflex 500 mg Cap, 500 mg= 1 cap(s), Oral, q12hr Follow-up With When Contact Information Sweta Torrez Within 5 to 7 days [address] [place] [address]- [facility] (2) Additional Instructions: For suture removal XXXX NONE In 3 days [place] Additional Instructions: Patient Education Sutured Wound Care, Ycjt-oy-Nruq Laceration Care, Adult Problem List/Past Medical History Ongoing Bipolar disorder ETD (eustachian tube dysfunction) Frequent UTI Smoker Historical Anxiety Bipolar Depression Schizoaffective schizophrenia Procedure/Surgical History Appendectomy; (2013), Cholecystectomy; (2010), Adenoidectomy, primary; younger than age 12, Cyst. Medications Inpatient bacitracin top 500 units/g Oint PACKET, 1 adia, Topical, Once lidocaine 1% Inj 10 mL, 50 mg= 5 mL, SubCutaneous, Once Home Bactrim 400 mg-80 mg Tab, See Instructions, 5 refills busPIRone, Oral, BID Keflex 500 mg Cap, 500 mg= 1 cap(s), Oral, q12hr Neurontin, Oral, TID Allergies Seafood (Rash) penicillin (UNSURE) Social History Alcohol Substance Abuse Marijuana, 05/25/2023 Current, Marijuana, Daily, Started age 12 Years., 10/15/2022 Tobacco 10 or more cigarettes (1/2 pack or more)/day in last 30 days Tobacco Use:. Cigarettes, 10/15/2022 Family History Diabetes mellitus type 1: Mother. High blood pressure: Mother. Migraine: Mother. Lab Results No qualifying data available. Diagnostic Results No qualifying data available. Normal [facility] Comment on above: Result Comment: Elec tronically Signed By: Brett Hunter DO\.br\Date and Time Signed: 05/25/23 08:09 EDT ED Patient Education Noteon 05-25-2023 ED Patient Education Note Caregiving Sutured Wound Care Sutures are stitches that can be used to close wounds. Some stitches break down as they heal (absorbable). Other stitches need to be taken out by your doctor (nonabsorbable). Taking good care of your wound can help to prevent pain and infection. It can also help your wound heal more quickly. Follow instructions from your doctor about how to care for your sutured wound. Supplies needed: ? Soap and water. ? A clean, dry towel. ? Solution to clean your wound, if needed. ? A clean gauze or bandage (dressing), if needed. ? Antibiotic ointment, if told by your doctor. How to care for your sutured wound ? Keep the wound fully dry for the first 24 hours or as long as told by your doctor. After 24?48 hours, you may shower or bathe as told by your doctor. Do not soak the wound or put the wound under water until the stitches have been taken out. ? After the first 24 hours, clean the wound once a day, or as often as your doctor tells you to. Take these steps: ? Wash and rinse the wound as told by your health care provider. ? Pat the wound dry with a clean towel. Do not rub the wound. ? After cleaning the wound, put a thin layer of antibiotic ointment on the wound as told by your doctor. This will help: ? Prevent infection. ? Keep the bandage from sticking to the wound. ? Follow instructions from your doctor about how to change your bandage. Make sure you: ? Wash your hands with soap and water for at least 20 seconds. If you cannot use soap and water, use hand broadcast maintenance engineer. ? Change your bandage at least once a day, or as often as told by your doctor. If your dressing gets wet or dirty, change it. ? Leavestitches in place for at least 2 weeks. If you have skin glue over your stitches, this should also stay in place for at least 2 weeks. ? Leave tape strips alone (if you have them) unless you are told to take them off. You may trim the edges of the tape strips if they curl up. ? Check your wound every day for signs of infection. Watch for: ? Redness, swelling, or pain. ? Fluid or blood. ? New warmth, a rash, or hardness at the wound site. ? Pus or a bad smell. ? Have the stitches taken out as told by your doctor. Follow these instructions at home: Medicines ? Take or apply aprr-ukv-naahgjc and prescription medicines only as told by your doctor. ? If you were prescribed an antibiotic medicine or ointment, take or apply it as told by your doctor. Do not stop using the antibiotic even if you start to feel better. General instructions ? Cover your wound with clothes or put sunscreen on when you are outside. Use a sunscreen of at least 30 SPF. ? Do not scratch or pick at your wound. ? Avoid stretching your wound. ? Raise the injured area above the level of your heart while you are sitting or lying down, if possible. ? Eat a diet that includes protein, vitamin A, and vitamin C. Doing this will help your wound heal. ? Drink enough fluid to keep your pee (urine) pale yellow. ? Keep all follow-up visits. Contact a doctor if: ? You were given a tetanus shot and you have any of the following at the site where the needle went in: ? Swelling. ? Very bad pain. ? Redness. ? Bleeding. ? Your wound breaks open. ? You see something coming out of your wound, such as wood or glass. ? You have any of these signs of infection in or around your wound: ? Redness, swelling, or pain. ? Fluid or blood. ? Warmth. ? A new rash. ? Your wound feels hard. ? You have a fever. ? The skin near your wound changes color. ? You have pain that does not get better with medicine. ? You get numbness around the wound. Get help right away if: ? You have very bad swelling or more pain around your wound. ? You have pus or a bad smell coming from your wound. ? You have painful lumps near your wound or anywhere on your body. ? You have a red streak going away from your wound. ? The wound is on your hand or foot, and: ? Your fingers or toes look pale or blue. ? You cannot move a finger or toe as you used to do. ? You have numbness that spreads down your hand, foot, fingers, or toes. Summary ? Sutures are stitches that are used to close wounds. ? Taking good care of your wound can help to prevent pain and infection. ? Keep the wound fully dry for the first 24 hours or for as long as told by your doctor. After 24?48 hours, you may shower or bathe as told by your doctor. This information is not intended to replace advice given to you by your health care provider. Make sure you discuss any questions you have with your health care provider. Document Revised: 01/20/2022 Document Reviewed: 01/20/2022 [employer] Patient Education ? 2022 [employer] Dermatology Laceration Care, Adult A laceration is a cut that may go through all layers of the skin and into the tissue that is right under the skin. Some lacerations heal on their own. Others need to be closed with stitc (more content not included)... Normal [facility] ED Patient Summaryon 023 ED Patient Summary (Inserted Image. Glo ble to display) [address] [address] Patient Discharge Instructions Person Information Name: JOE RAJPUT Age: 27 Years Arrival Date: 05/25/2023 07:34:13 Discharge Diagnosis: Thumb laceration Primary Care Physician: NONE, XXXX Provider Information Primary Provider: Brett Hunter DO Advanced Retail Area Manager:None The exam and treatment you received in the Emergency Department were for an urgent problem and are not intended as complete care. It is important that you follow up with a doctor, nurse practitioner, or physician?s residential real estate assistant for ongoing care. If your symptoms become worse or you do not improve as expected and you are unable to reach your usual health care provider, you should return to the Emergency Department. We are available 24 hours a day. JOE RAJPUT has been given the following list of patient education materials, prescriptions and follow-up instructions: Follow-up Instructions: With: Address: When: Sweta Torrez [facility] [place] [address] Business (2) Within 5 to 7 days Comments: For suture removal With: Address: When: XXXX [facility] [place] , [place] In 3 days In the event that this physician does not participate in your insurance network, please consult with your insurance company to find a nearby participating provider. Patient Education Materials: Sutured Wound Care, Nkjb-dm-Inow; Laceration Care, Adult A MESSAGE TO ALL PATIENTS REGARDING OPIOIDS PRESCRIPTION OPIOIDS: WHAT YOU NEED TO KNOW Prescription opioids can be used to help relieve flauwllv-zi-sezetr pain and are often prescribed following a surgery or injury, or for certain health conditions. These medications can be an important part of the treatment but also come with serious risks. It is important to work with your healthcare provider to make sure you are getting the safest, most effective care. WHAT ARE THE RISKS AND SIDE EFFECTS OF OPIOID USE? Prescription opioids carry serious risks of addiction and overdose, especially with prolonged use. An opioid overdose, often marked by slowed breathing, can cause sudden . The use of prescription opioids can have a number of side effects as well, even when taken as directed: ? Tolerance?meaning you might need to take more of the medication for the same pain relief ? Physical dependence?meaning you have symptoms of withdrawal when a medication is stopped ? Increased sensitivity to pain ? Constipation ? Nausea, vomiting, and dry mouth ? Sleepiness and dizziness ? Confusion ? Depression ? Low levels of testosterone that can result in lower sex drive, energy, and strength ? Itching and sweating RISKS ARE GREATER WITH: ? History of drug misuse, substance use disorder, or overdose ? Mental health conditions (such as depression or anxiety) ? Sleep apnea ? Older age (65 years and older) ? Avoid alcohol while taking prescription opioids. Also, unless specifically advised by your health care provider, medications to avoid include: ? Benzodiazepines (such as Xanax or Valium) ? Muscle relaxants (such as Soma or Flexeril) ? Hypnotics (such as Ambien or Lunesta) ? Other prescription opioids KNOW YOUR OPTIONS Talk to your health care provider about ways to manage your pain that don?t involve prescription opioids. Some of these options may actually work better and have fewer risks and side effects. Options may include: ? Pain relievers such as acetaminophen, ibuprofen, and naproxen ? Some medication that are also used for depression or seizures ? Physical therapy and exercise ? Cognitive behavioral therapy, a psychological, goal-directed approach, in which patients learn how to modify physical, behavioral, and emotional triggers of pain and stress. IF YOU ARE PRESCRIBED OPIOIDS FOR PAIN: ? Never take opioids in greater amounts or more often than prescribed. ? Follow up with your primary health care provider. o Work together to create a plan on how to manage your pain. o Talk about ways to help manage your pain that don?t involve prescription opioids. o Talk about any and all concerns and side effects. ? Help prevent misuse and abuse o Never sell or share prescription opioids. o Never use another person?s prescription opioids. ? Store prescription opioids in a secure place and out of reach of others (this may include visitors, children, friends, and family). ? Safely dispose of unused prescription opioids: Find your community drug take-back program or your pharmacy mail-back program, or flush them down the toilet, following guidance from the Food and Drug Administration (www.fda.gov/Drugs/Resourc esForYou). ? Visit www.cdc.gov/drugoverdose to learn about the risks of opioids abuse and overdose. ? If you believe you may be struggling with addiction, tell your health rn patient care and ask for brenda (more content not included)... Normal [facility] Comprehensive Metabolic Pane darrin 02-25-2023 Albumin [Mass/Vol] 4.4 g/dL Normal 3.5-5.7 [facility] Comment on above: Order Comment: Reaso n for Exam Hepatitis C Performed By: #### H BCAB, HCV RNAQNT, HCV HARLAN, HBSAB, HBSAG #### [facility] , #### CMP, DIFF CBC, PT #### [address] Albumin/Globulin [Mass ratio] 1.7 {ratio} Normal [facility] Comment on above: Order Comment: Reaso n for Exam Hepatitis C Performed By: #### H BCAB, HCV RNAQNT, HCV HARLAN, HBSAB, HBSAG #### [facility] , #### CMP, DIFF CBC, PT #### [address] ALP [Catalytic activity/Vol] 34 U/L Normal 34-104 [facility] Comment on above: Order Comment: Reaso n for Exam Hepatitis C Result Comment: PERF ORMED BY: [place] [address] PATHOLOGIST DIVING COACH HUMBERTO JOLLY M.D. Performed By: #### H BCAB, HCV RNAQNT, HCV HARLAN, HBSAB, HBSAG #### [facility] , #### CMP, DIFF CBC, PT #### [address] ALT [Catalytic activity/Vol] 23 U/L Normal 7-52 [facility] Comment on above: Order Comment: Reaso n for Exam Hepatitis C Performed By: #### H BCAB, HCV RNAQNT, HCV HARLAN, HBSAB, HBSAG #### [facility] , #### CMP, DIFF CBC, PT #### [facility] [address] [place] [address] Anion gap [Moles/Vol] 11.3 mmol/L Normal 6.0-15.0 [facility] Comment on above: Order Comment: Reaso n for Exam Hepatitis C Performed By: #### H BCAB, HCV RNAQNT, HCV HARLAN, HBSAB, HBSAG #### [facility] , #### CMP, DIFF CBC, PT #### [facility] [address] [place] [address] AST [Catalytic activity/Vol] 28 U/L Normal 13-39 [facility] Comment on above: Order Comment: Reaso n for Exam Hepatitis C Performed By: #### H BCAB, HCV RNAQNT, HCV HARLAN, HBSAB, HBSAG #### [facility] , #### CMP, DIFF CBC, PT #### [address] Bilirubin [Mass/Vol] 1.1 mg/dL High 0.3-1.0 [facility] Comment on above: Order Comment: Reaso n for Exam Hepatitis C Performed By: #### H BCAB, HCV RNAQNT, HCV HARLAN, HBSAB, HBSAG #### [facility] , #### CMP, DIFF CBC, PT #### [address] Calcium [Mass/Vol] 9.6 mg/dL Normal 8.6-10.3 [facility] Comment on above: Order Comment: Reaso n for Exam Hepatitis C Performed By: #### H BCAB, HCV RNAQNT, HCV HARLAN, HBSAB, HBSAG #### [facility] , #### CMP, DIFF CBC, PT #### [place] [address] [place] Chloride [Moles/Vol] 108 mmol/L High 98-107 [facility] Comment on above: Order Comment: Reaso n for Exam Hepatitis C Performed By: #### H BCAB, HCV RNAQNT, HCV HARLAN, HBSAB, HBSAG #### [facility] , #### CMP, DIFF CBC, PT #### [facility] [address] [place] [address] [place] CO2 [Moles/Vol] 24.6 mmol/L Normal 21.0-31.0 [facility] Comment on above: Order Comment: Reaso n for Exam Hepatitis C Performed By: #### H BCAB, HCV RNAQNT, HCV HARLAN, HBSAB, HBSAG #### [facility] , #### CMP, DIFF CBC, PT #### [address] Creatinine [Mass/Vol] 0.66 mg/dL Normal 0.60-1.20 [facility] Comment on above: Order Comment: Reaso n for Exam Hepatitis C Performed By: #### H BCAB, HCV RNAQNT, HCV HARLAN, HBSAB, HBSAG #### [facility] , #### CMP, DIFF CBC, PT #### [address] GFR/1.73 sq M.predicted MDRD (S/P/Bld) [Vol rate/Area] mL/min/{1.73_m2} Normal [facility] Comment on above: Order Comment: Reaso n for Exam Hepatitis C Performed By: #### H BCAB, HCV RNAQNT, HCV HARLAN, HBSAB, HBSAG #### [facility] , #### CMP, DIFF CBC, PT #### [address] Globulin (S) [Mass/Vol] 2.6 g/dL Normal [facility] Comment on above: Order Comment: Reaso n for Exam Hepatitis C Performed By: #### H BCAB, HCV RNAQNT, HCV HARLAN, HBSAB, HBSAG #### [facility] , #### CMP, DIFF CBC, PT #### [facility] [address] [place] [address] Glucose [Mass/Vol] 76 mg/dL Normal 70-100 [facility] Comment on above: Order Comment: Reaso n for Exam Hepatitis C Result Comment: [place] om Glucose Reference Range is dependent on time and content of last meal. Glucose of more than 200 mg/dL in a nonstressed, ambulatory subject supports the diagnosis of Diabetes Mellitus. ADA recommended reference range Performed By: #### H BCAB, HCV RNAQNT, HCV HARLAN, HBSAB, HBSAG #### [facility] , #### CMP, DIFF CBC, PT #### [address] Potassium [Moles/Vol] 3.9 mmol/L Normal 3.5-5.1 [facility] Comment on above: Order Comment: Reaso n for Exam Hepatitis C Performed By: #### H BCAB, HCV RNAQNT, HCV HARLAN, HBSAB, HBSAG #### [facility] , #### CMP, DIFF CBC, PT #### [address] Protein [Mass/Vol] 7.0 g/dL Normal 6.4-8.9 [facility] Comment on above: Order Comment: Reaso n for Exam Hepatitis C Performed By: #### H BCAB, HCV RNAQNT, HCV HARLAN, HBSAB, HBSAG #### [facility] , #### CMP, DIFF CBC, PT #### [address] Sodium [Moles/Vol] 140 mmol/L Normal 136-145 [facility] Comment on above: Order Comment: Reaso n for Exam Hepatitis C Performed By: #### H BCAB, HCV RNAQNT, HCV HARLAN, HBSAB, HBSAG #### [facility] , #### CMP, DIFF CBC, PT #### [address] Urea nitrogen [Mass/Vol] 8 mg/dL Normal 7-25 [facility] Comment on above: Order Comment: Reaso n for Exam Hepatitis C Performed By: #### H BCAB, HCV RNAQNT, HCV HARLAN, HBSAB, HBSAG #### [facility] , #### CMP, DIFF CBC, PT #### [facility] [address] [place] [address] Diff and CBCon 02-25-2023 Eosinophils/100 WBC (Bld) 1 % Normal 1-3 [facility] Comment on above: Order Comment: Reaso n for Exam Hepatitis C Performed By: #### H BCAB, HCV RNAQNT, HCV HARLAN, HBSAB, HBSAG #### [facility] , #### CMP, DIFF CBC, PT #### [address] Erythrocyte distribution width (RBC) [Ratio] 12.5 % Normal 11.9-15.3 [facility] Comment on above: Order Comment: Reaso n for Exam Hepatitis C Performed By: #### H BCAB, HCV RNAQNT, HCV HARLAN, HBSAB, HBSAG #### [facility] , #### CMP, DIFF CBC, PT #### [address] Giant Platelet Tally 1 /100{WBC} Normal [facility] Comment on above: Order Comment: Reaso n for Exam Hepatitis C Result Comment: PERF ORMED BY: [place] [address] PATHOLOGIST DIVING COACH HUMBERTO JOLLY M.D. Performed By: #### H BCAB, HCV RNAQNT, HCV HARLAN, HBSAB, HBSAG #### [facility] , #### CMP, DIFF CBC, PT #### [address] Hematocrit (Bld) [Volume fraction] 41.0 % Normal 34.0-46.4 [facility] Comment on above: Order Comment: Reaso n for Exam Hepatitis C Performed By: #### H BCAB, HCV RNAQNT, HCV HARLAN, HBSAB, HBSAG #### [facility] , #### CMP, DIFF CBC, PT #### [facility] [address] [place] [address] Hemoglobin (Bld) [Mass/Vol] 13.9 g/dL Normal 11.8-15.4 [facility] Comment on above: Order Comment: Reaso n for Exam Hepatitis C Performed By: #### H BCAB, HCV RNAQNT, HCV HARLAN, HBSAB, HBSAG #### [facility] , #### CMP, DIFF CBC, PT #### [address] Lymphocytes/100 WBC (Bld) 24 % Normal 18-42 [facility] Comment on above: Order Comment: Reaso n for Exam Hepatitis C Performed By: #### H BCAB, HCV RNAQNT, HCV HARLAN, HBSAB, HBSAG #### [facility] , #### CMP, DIFF CBC, PT #### [address] MCH (RBC) [Entitic mass] 31.3 pg Normal 24.7-34.3 [facility] Comment on above: Order Comment: Reaso n for Exam Hepatitis C Performed By: #### H BCAB, HCV RNAQNT, HCV HARLAN, HBSAB, HBSAG #### [facility] , #### CMP, DIFF CBC, PT #### [address] MCV (RBC) [Entitic vol] 92.7 fL Normal 80-100 [facility] [facility] Comment on above: Order Comment: Reaso n for Exam Hepatitis C Performed By: #### H BCAB, HCV RNAQNT, HCV HARLAN, HBSAB, HBSAG #### [facility] , #### CMP, DIFF CBC, PT #### [address] Mean Corpuscular HGB Conc 33.8 g/dL Normal 32.0-35.0 [facility] Comment on above: Order Comment: Reaso n for Exam Hepatitis C Performed By: #### H BCAB, HCV RNAQNT, HCV HARLAN, HBSAB, HBSAG #### [facility] , #### CMP, DIFF CBC, PT #### [place] [address] [place] Monocytes/100 WBC (Bld) 3 % Normal 2-11 [facility] Comment on above: Order Comment: Reaso n for Exam Hepatitis C Performed By: #### H BCAB, HCV RNAQNT, HCV HARLAN, HBSAB, HBSAG #### [facility] , #### CMP, DIFF CBC, PT #### [address] Platelet Estimate Normal Normal Normal [facility] Comment on above: Order Comment: Reaso n for Exam Hepatitis C Performed By: #### H BCAB, HCV RNAQNT, HCV HARLAN, HBSAB, HBSAG #### [facility] , #### CMP, DIFF CBC, PT #### [address] Platelet mean volume (Bld) [Entitic vol] 10.2 fL Normal 6.3-10.7 [facility] Comment on above: Order Comment: Reaso n for Exam Hepatitis C Result Comment: PERF ORMED BY: [place] [address] PATHOLOGIST DIVING COACH HUMBERTO JOLLY M.D. Performed By: #### H BCAB, HCV RNAQNT, HCV HARLAN, HBSAB, HBSAG #### [facility] , #### CMP, DIFF CBC, PT #### [address] Platelets (Bld) [#/Vol] 193 10*3/uL Normal 150-450 [facility] Comment on above: Order Comment: Reaso n for Exam Hepatitis C Performed By: #### H BCAB, HCV RNAQNT, HCV HARLAN, HBSAB, HBSAG #### [facility] , #### CMP, DIFF CBC, PT #### [facility] [address] [place] [address] [place] RBC (Bld) [#/Vol] 4.43 10*6/uL Normal 3.60-5.00 [facility] Comment on above: Order Comment: Reaso n for Exam Hepatitis C Performed By: #### H BCAB, HCV RNAQNT, HCV HARLAN, HBSAB, HBSAG #### [facility] , #### CMP, DIFF CBC, PT #### [address] RBC morphology finding Nom (Bld) Normal Normal Normal [facility] Comment on above: Order Comment: Reaso n for Exam Hepatitis C Performed By: #### H BCAB, HCV RNAQNT, HCV HARLAN, HBSAB, HBSAG #### [facility] , #### CMP, DIFF CBC, PT #### [address] Segmented neutrophils/100 WBC (Bld) 72 % High 50-70 [facility] Comment on above: Order Comment: Reaso n for Exam Hepatitis C Performed By: #### H BCAB, HCV RNAQNT, HCV HARLAN, HBSAB, HBSAG #### [facility] , #### CMP, DIFF CBC, PT #### [address] WBC (Bld) [#/Vol] 6.1 10*3/uL Normal 3.8-11.6 [facility] Comment on above: Order Comment: Reaso n for Exam Hepatitis C Performed By: #### H BCAB, HCV RNAQNT, HCV HARLAN, HBSAB, HBSAG #### [facility] , #### CMP, DIFF CBC, PT #### [address] HCG ( test) IA.rapi d Ql (U)Ordered By: Feng Barros on 02-25-2023 HCG ( test) Ql (U) Negative [facility] HCG,Urineon 02-25-2023 Beta HCG ( test) Ql (U) Negative Normal [facility] Comment on above: Result Comment: PERF ORMED BY: [place] [address] PATHOLOGIST DIVING COACH HUMBERTO JOLLY M.D. Performed By: #### U HCG #### [address] Hep C Genotyping Non Reflexo n 02-25-2023 Hepatitis C Genotype 4 Normal . [facility] Comment on above: Order Comment: Reaso n for Exam Hepatitis C Performed By: #### H BCAB, HCV RNAQNT, HCV HARLAN, HBSAB, HBSAG #### [facility] , #### CMP, DIFF CBC, PT #### [address] Please Note: Normal . [facility] Comment on above: Order Comment: Reaso n for Exam Hepatitis C Result Comment: This test was developed and its performance characteristics determined by [facility]. It has not been cleared or approved by the U.S. Food and Drug Administration. The FDA has determined that such clearance or approval is not necessary. This test is used for clinical purposes. It should not be regarded as investigational or for research. Performed at: [address] [id number] Medical Delivery Technician: Camilla Lafleur MD, Phone: [phone] PERFORMED BY: [place] [address] PATHOLOGIST DIVING COACH HUMBERTO JOLLY M.D. Performed By: #### H BCAB, HCV RNAQNT, HCV HARLAN, HBSAB, HBSAG #### [facility] , #### CMP, DIFF CBC, PT #### [address] Hep C RT-PCR, Qnt (Non-Graph )on 02-25-2023 HCV Log10 3.878 Normal . [facility] Comment on above: Order Comment: Reaso n for Exam Hepatitis C Result Comment: Resu lt Units: log10 IU/mL Performed By: #### H BCAB, HCV RNAQNT, HCV HARLAN, HBSAB, HBSAG #### [facility] , #### CMP, DIFF CBC, PT #### [address] Hepatitis C Quantitation 7550 Normal . [facility] Comment on above: Order Comment: Reaso n for Exam Hepatitis C Performed By: #### H BCAB, HCV RNAQNT, HCV HARLAN, HBSAB, HBSAG #### [facility] , #### CMP, DIFF CBC, PT #### [address] Test Information: Normal . [facility] Comment on above: Order Comment: Reaso n for Exam Hepatitis C Result Comment: The quantitative range of this assay is 15 IU/mL to 100 million IU/mL. Performed at: - [facility] [id number] Medical Delivery Technician: Camilla Lafleur MD, Phone: [phone] Performed By: #### H BCAB, HCV RNAQNT, HCV HARLAN, HBSAB, HBSAG #### [facility] , #### CMP, DIFF CBC, PT #### [address] Hepatitis B Core Antibodyon 02-25-2023 Hepatitis B Core Antibody Negative Normal Negative [facility] Comment on above: Order Comment: Reaso n for Exam Hepatitis C Result Comment: Perf ormed at: - [facility] [address] [id number] Medical Delivery Technician: Evaristo Chaudhry PhD, Phone: [phone] Performed By: #### H BCAB, HCV RNAQNT, HCV HARLAN, HBSAB, HBSAG #### [facility] , #### CMP, DIFF CBC, PT #### [address] Hepatitis B Surface Antibody on 02-25-2023 Hepatitis B Surface Antibody Reactive Normal . [facility] Comment on above: Order Comment: Reaso n for Exam Hepatitis C Result Comment: Non Reactive: Inconsistent with immunity, less than 10 mIU/mL Reactive: Consistent with immunity, greater than 9.9 mIU/mL Performed By: #### H BCAB, HCV RNAQNT, HCV HARLAN, HBSAB, HBSAG #### [facility] , #### CMP, DIFF CBC, PT #### [address] [place] [address] [place] Hepatitis B Surface Antigeno n 02-25-2023 HBsAg Confirmation Negative Normal . [facility] Comment on above: Order Comment: Reaso n for Exam Hepatitis C Result Comment: Moira brenda result obtained by neutralization. Performed at: - [facility] [address] [id number] Medical Delivery Technician: Evaristo Chaudhry PhD, Phone: [phone] Performed By: #### H BCAB, HCV RNAQNT, HCV HARLAN, HBSAB, HBSAG #### [facility] , #### CMP, DIFF CBC, PT #### [address] HBsAg Screen Confirm. indicated Normal Negative [facility] Comment on above: Order Comment: Reaso n for Exam Hepatitis C Performed By: #### H BCAB, HCV RNAQNT, HCV HARLAN, HBSAB, HBSAG #### [facility] , #### CMP, DIFF CBC, PT #### [address] Laboratory - CoagulationOrde red By: Feng Barros on 02-25-2023 PT Coag (PPP) [Time] 12.0 s 9.0-12.9 [facility] Platelet poor plasma interna tional normalized ratio (INR) by coagulation assay (relatOrdered By: Feng Barros on 02-25-2023 INR Coag (PPP) [Relative time] 1.0 {INR} [facility] Comment on above: INR Therapeutic Rang e A) Pre- and Peroperative OAT started two weeks before surgery. NOT HIP SURGERY: 1.5 - 2.5 HIP SURGERY: 2 - 3B) Primary and secondary prevention of venous THROMBOSIS: 2 - 3C) Active venous thrombosis, pulmonary embolismand prevention of recurrent venous thrombosis: 2 - 3D) Prevention of arterial thromboembolismincluding patients with mechanical heart valves: 3 - 4.5 Prothrombin Time INRon 02-25 INR Coag (PPP) [Relative time] 1.0 {INR} Normal [facility] Comment on above: Order Comment: Reaso n for Exam Hepatitis C Result Comment: INR Therapeutic Range A) Pre- and Peroperative OAT started two weeks before surgery. NOT HIP SURGERY: 1.5 - 2.5 HIP SURGERY: 2 - 3 B) Primary and secondary prevention of venous THROMBOSIS: 2 - 3 C) Active venous thrombosis, pulmonary embolism and prevention of recurrent venous thrombosis: 2 - 3 D) Prevention of arterial thromboembolism including patients with mechanical heart valves: 3 - 4.5 PERFORMED BY: [place] [address] PATHOLOGIST DIVING COACH HUMBERTO JOLLY M.D. Performed By: #### H BCAB, HCV RNAQNT, HCV HARLAN, HBSAB, HBSAG #### [facility] , #### CMP, DIFF CBC, PT #### [address] PT Coag (PPP) [Time] 12.0 s Normal 9.0-12.9 [facility] Comment on above: Order Comment: Reaso n for Exam Hepatitis C Performed By: #### H BCAB, HCV RNAQNT, HCV HARLAN, HBSAB, HBSAG #### [facility] , #### CMP, DIFF CBC, PT #### [address] liveron 02-25-2023 liver [facility] [place] [address] Ultrasound Report Signed Patient: Joe Rajput MR#: [id number] : 1995 Acct:[id number] Age/Sex: 27 / F ADM Date: 02/25/23 Loc: Room: Type: [facility] Attending Dr: Feng Barros MD Ordering Provider: Feng Barros MD Date of Service: 02/25/23 US/US liver: Hepatitis C Copies to: Feng Barros MD LIMITED ABDOMINAL ULTRASOUND: CLINICAL HISTORY: Hepatitis C COMPARISON: None TECHNIQUE: Grayscale and color Doppler images of the right upper quadrant organs were obtained. FINDINGS: Pancreas: Visualized portions appear unremarkable. Liver: No mass. Hepatopedal flow is seen within the portal vein. Gallbladder: Removed CBD: 8.6 mm US/US liver IMPRESSION: NO HEPATIC MASS.. Impression dictated by: Abdulkadir Brunner Jr., D.O.02/25/2023 3:40 PM Dictation Location: [place] [address] Tech: Lakshmi Justice Transcribed By: [facility] 02/25/23 1540 Dictated By: Abdulkadir Brunner Jr, DO 02/25/23 1539 Signed By: 02/25/23 1540 Normal [facility] CBC AUTO DIFFon 02-07-2023 BASO # 0.0 103/ul Normal 0.0-0.1 [facility] Comment on above: Performed By: #### RAYMOND PACHECO #### [facility] [address] [place] [address] Dr. Sara Rey Basophils/100 WBC (Bld) 0.3 % Normal 0.2-2.0 [facility] Comment on above: Performed By: #### RAYMOND PACHECO #### [facility] [address] [place] [address] Dr. Sara Rey EO # 0.1 103/ul Normal 0.0-0.7 [facility] Comment on above: Performed By: #### RAYMOND PACHECO #### [facility] [address] [place] [address] Dr. Sara Rey Eosinophils/100 WBC (Bld) 1.1 % Normal 0.9-7.0 [facility] Comment on above: Performed By: #### RAYMOND PACHECO #### [facility] [address] [place] [address] Dr. Sara Rey Erythrocyte distribution width (RBC) [Ratio] 12.3 % Normal 11.0-15.0 [facility] Comment on above: Performed By: #### RAYMOND PACHECO #### [facility] [address] [place] [address] Dr. Sara Rey Hematocrit (Bld) [Volume fraction] 36.2 % Normal 36.0-48.0 [facility] Comment on above: Performed By: #### E RUR, UMICRO #### [facility] [address] [place] [address] [address] Sara Rey Hemoglobin (Bld) [Mass/Vol] 12.3 g/dL Normal 12.0-16.0 [facility] Comment on above: Performed By: #### E RUR, UMICRO #### [facility] [address] [place] [address] Dr. Sara Rey IG # 0.02 10e3/ul Normal 0.00-0.03 [facility] Comment on above: Performed By: #### E BERTR, UMICRO #### [facility] [address] [place] [address] Dr. Sara Rey IG % 0.3 % Normal 0.0-0.5 [facility] Comment on above: Performed By: #### Monica PORTER, UMICRO #### [facility] [address] [place] [address] Dr. Sara Rey LYMPH # 2.4 103/ul Normal 1.2-3.[address] [facility] Comment on above: Performed By: #### Monica PORTER, UMICRO #### [facility] [address] [place] [address] Dr. Sara Rey Lymphocytes/100 WBC (Bld) 36.4 % Normal 20.5-60.0 [facility] Comment on above: Performed By: #### Monica PORTER, UMICRO #### [facility] [address] [place] [address] Dr. Sara Rey MANUAL DIFF REQ NO Normal [facility] Comment on above: Performed By: #### E RUJerry, UMICRO #### [facility] [address] [place] [address] Dr. Sara Rey MCH (RBC) [Entitic mass] 31.8 pg Normal 26.7-34.[address] [facility] Comment on above: Performed By: #### E RUR, UMICRO #### [facility] [address] [place] [address] Dr. Sara Rey MCHC (RBC) [Mass/Vol] 34.0 g/dL Normal 29.9-35.2 [facility] Comment on above: Performed By: #### INOCENTE PACHECORO #### [facility] [address] [place] [address] Dr. Sara Rey MCV (RBC) [Entitic vol] 93.5 fL Normal 81.0-99.0 [facility] Comment on above: Performed By: #### INOCENTE PACHECORO #### [facility] [address] [place] [address] Dr. Sara Rey MONO # 0.5 103/ul Normal 0.3-0.8 [facility] Comment on above: Performed By: #### INOCENTE PACHECORO #### [facility] [address] [place] [address] Dr. Sara Rey Monocytes/100 WBC (Bld) 8.3 % Normal 1.7-12.0 [facility] Comment on above: Performed By: #### INOCENTE PACHECORO #### [facility] [address] [place] [address] Dr. Sara Rey NEUT # 3.5 103/ul Normal 1.4-6.5 [facility] Comment on above: Performed By: #### INOCENTE PACHECORO #### [facility] [address] [place] [address] Dr. Sara Rey Neutrophils/100 WBC (Bld) 53.6 % Normal 43.0-75.0 [facility] Comment on above: Performed By: #### INOCENTE PACHECORO #### [facility] [address] [place] [address] Dr. Sara Rey Platelet mean volume (Bld) [Entitic vol] 11.4 fL Normal 9.5-13.5 [facility] Comment on above: Performed By: #### INOCENTE PACHECORO #### [facility] [address] [place] [address] Dr. Sara Rey PLT 167 103/ul Normal 150-[address] [facility] Comment on above: Performed By: #### INOCENTE PACHECORO #### [facility] [address] [place], [place] [address] Dr. Sara Rey RBC 3.87 106/ul Critically low 4.20-5.40 [facility] Comment on above: Performed By: #### E INOCENTE PORTERRO #### [facility] [address] [place], [place] [address] Dr. Sara Rey WBC 6.5 103/ul Normal 4.0-11.0 [facility] Comment on above: Performed By: #### E INOCENTE PORTERRO #### [facility] [address] [place], [place] [address] Dr. Sara Rey COMPLIANCE DRUG SCREENon PDF . Normal [facility] Comment on above: Performed By: #### B MP, LIVER, PREGQNT #### [facility] [address] [place], [place] [address] Dr. Sara Rey Summary FINAL Normal [facility] Comment on above: Result Comment: ======= TOXASSURE COMP DRUG ANALYSIS,UR ======= Test Result Flag Units Drug Present and Declared for Prescription Verification Buprenorphine 90 EXPECTED ng/mg creat Norbuprenorphine 900 EXPECTED ng/mg creat Source of buprenorphine is a scheduled prescription medication. Norbuprenorphine is an expected metabolite of buprenorphine. Gabapentin PRESENT EXPECTED Drug Present not Declared for Prescription Verification Carboxy-THC >1471 UNEXPECTED ng/mg creat Carboxy-THC is a metabolite of tetrahydrocannabinol (THC). Source of THC is most commonly herbal marijuana or marijuana-based products, but THC is also present in a scheduled prescription medication. Trace amounts of THC can be present in hemp and cannabidiol (CBD) products. This test is not intended to distinguish between tygzg-3-zhoyxiyysbsimksfbjjl, the predominant form of THC in most herbal or marijuana-based products, and drsoe-9-wdtczxdsjgtnbmfwizlw. Drug Absent but Declared for Prescription Verification Acetaminophen Not Detected UNEXPECTED Acetaminophen, as indicated in the declared medication list, is not always detected even when used as directed. ======= Test Result Flag Units Ref Range Creatinine 68 mg/dL >=20 ======= Declared Medications: The flagging and interpretation on this report are based on the following declared medications. Unexpected results may arise from inaccuracies in the declared medications. Note: The testing scope of this panel includes these medications: Gabapentin Gabapentin (Neurontin) Note: The testing scope of this panel does not include small to moderate amounts of these reported medications: Acetaminophen (Tylenol) Buprenorphine ======= For clinical consultation, please call . ======= Performed By: #### B MP, LIVER, PREGQNT #### [facility] [address] [place] [address] [address] Sara Rey DRUG SCREEN RAPID (URINE)on 02-07-2023 AMP Negative Normal NEGATIVE [facility] Comment on above: Performed By: #### B MP, LIVER, PREGQNT #### [facility] [address] [place] [address] [address] Sara Rey BAR Negative Normal NEGATIVE [facility] Comment on above: Performed By: #### B MP, LIVER, PREGQNT #### [facility] [address] [place] [address] [address] Sara Rey BUP Positive Abnormal NEGATIVE [facility] Comment on above: Performed By: #### B MP, LIVER, PREGQNT #### [facility] [address] [place] [address] [address] Sara Rey BZO Negative Normal NEGATIVE [facility] Comment on above: Performed By: #### B MP, LIVER, PREGQNT #### [facility] [address] [place] [address] [address] Sara Rey KAYLIN Negative Normal NEGATIVE [facility] Comment on above: Performed By: #### B MP, LIVER, PREGQNT #### [facility] [address] [place] [address] [address] Sara Rey CUT-OFFS SEE BELOW Normal [facility] Comment on above: Result Comment: AMP (Amphetamine): 500ng/mL, BAR (Barbituates): 200 ng/mL, BZO (Benzodiazepines): 150 ng/mL, BUP (Buprenorphine): 10 ng/mL, KAYLIN (Cocaine): 150 ng/mL, mAMP (Methamphetamine): 500 ng/mL, MTD (Methadone): 200 ng/mL, OPI (Opiates): 100 ng/mL, OXY (Oxycodone): 100 ng/mL, PCP (Phencyclidine): 25 ng/mL, PPX (Propoxyphene): 300 ng/mL, THC (Cannabinoids): 50 ng/mL, TCA (Trycyclic Antidepressants): 300 ng/mL Performed By: #### B MP, LIVER, PREGQNT #### [facility] [address] [place] [address] [address] Sara Rey DRUG CUT HEADER DRUG CLASS TEST SYST EM CUT-OFF CONCENTRATIONS ARE FOLLOWS: Normal [facility] Comment on above: Performed By: #### B MP, LIVER, PREGQNT #### [facility] [address] [place] [address] [address] Sara Rey mAMP Negative Normal NEGATIVE [facility] Comment on above: Performed By: #### B MP, LIVER, PREGQNT #### [facility] [address] [place] [address] [address] Sara Rey MTD Negative Normal NEGATIVE [facility] Comment on above: Performed By: #### B MP, LIVER, PREGQNT #### [facility] [address] [place] [address] [address] Sara Rey OPI Negative Normal NEGATIVE [facility] Comment on above: Performed By: #### B MP, LIVER, PREGQNT #### [facility] [address] [place] [address] [address] Sara Rey OXY Negative Normal NEGATIVE [facility] Comment on above: Performed By: #### B MP, LIVER, PREGQNT #### [facility] [address] [place] [address] [address] Sara Rey PCP Negative Normal NEGATIVE [facility] Comment on above: Performed By: #### B MP, LIVER, PREGQNT #### [facility] [address] [place] [address] [address] Sara Rey PPX Negative Normal NEGATIVE [facility] Comment on above: Performed By: #### B MP, LIVER, PREGQNT #### [facility] [address] [place] [address] [address] Sara Rey TCA Negative Normal NEGATIVE [facility] Comment on above: Performed By: #### B MP, LIVER, PREGQNT #### [facility] [address] [place] [address] [address] Sara Rey THC Positive Abnormal NEGATIVE [facility] Comment on above: Performed By: #### B MP, LIVER, PREGQNT #### [facility] [address] [place] [address] [address] Sara Rey ER URINE PROFILEon 3 Bilirubin Ql (U) Negative Normal NEGATIVE [facility] Comment on above: Performed By: #### B MP, LIVER, PREGQNT #### [facility] [address] [place] [address] Dr. Sara Rey Clarity (U) CLEAR Normal CLEAR [facility] Comment on above: Performed By: #### B MP, LIVER, PREGQNT #### [facility] [address] [place] [address] [address] Sara Rey Color (U) LT. YELLOW Normal YELLOW [facility] Comment on above: Performed By: #### B MP, LIVER, PREGQNT #### [facility] [address] [place] [address] [address] Sara Rey ERUAHD A micrscopic examina tion will be performed if indicated. Normal [facility] Comment on above: Performed By: #### B MP, LIVER, PREGQNT #### [facility] [address] [place] [address] Dr. Sara Rey Glucose Ql (U) Negative Normal NEGATIVE [facility] Comment on above: Performed By: #### B MP, LIVER, PREGQNT #### [facility] [address] [place] [address] Dr. Sara Rey Hemoglobin Ql (U) TRACE-INTACT Abnormal NEGATIVE [facility] Comment on above: Performed By: #### B MP, LIVER, PREGQNT #### [facility] [address] [place] [address] Dr. Sara Rey Ketones Ql (U) Negative Normal NEGATIVE [facility] Comment on above: Performed By: #### B MP, LIVER, PREGQNT #### [facility] [address] [place] [address] Dr. Sara Rey LEUKOCYTES Negative Normal NEGATIVE [facility] Comment on above: Performed By: #### B MP, LIVER, PREGQNT #### [facility] [address] [place] [address] Dr. Sara Rey Nitrite Ql (U) Negative Normal NEGATIVE [facility] Comment on above: Performed By: #### B MP, LIVER, PREGQNT #### [facility] [address] [place] [address] Dr. Sara Rey pH (U) 6.0 [pH] Normal 5-9 [facility] Comment on above: Performed By: #### B MP, LIVER, PREGQNT #### [facility] [address] [place] [address] Dr. Sara Rey SPEC GRAVITY <=1.005 Abnormal 1.005-<=1. 025 [facility] Comment on above: Performed By: #### B MP, LIVER, PREGQNT #### [facility] [address] [place] [address] Dr. Sara Rey UA PROTEIN Negative Normal NEGATIVE/ TRACE [facility] Comment on above: Performed By: #### B MP, LIVER, PREGQNT #### [facility] [address] [place] [address] Dr. Sara Rey UR MICRO IND NOT INDICATED Normal [facility] Comment on above: Performed By: #### B MP, LIVER, PREGQNT #### [facility] [address] [place] [address] Dr. Sara Rey Urobilinogen Qn (U) 2.0 {Jose'U}/dL Abnormal 0.2 - 1. 0 [facility] Comment on above: Performed By: #### B MP, LIVER, PREGQNT #### [facility] [address] [place] [address] Dr. Sara Rey LACTATE/LACTIC ACIDon 2022 Lactate [Moles/Vol] mmol/L Normal 0.4-2.0 [facility] Comment on above: Performed By: #### C BC #### [facility] [address] [place] [address] Dr. Sara Rey PROF CHEM 8 (BAS METB)on Anion gap [Moles/Vol] 11.0 mmol/L Normal [facility] Comment on above: Performed By: #### P REGU #### [facility] [address] [place] [address] Dr. Sara Rey Calcium [Mass/Vol] 9.1 mg/dL Normal 8.5-10.1 [facility] Comment on above: Performed By: #### P REGU #### [facility] [address] [address] [address] Sara Rey Chloride [Moles/Vol] 106 mmol/L Normal 98-[address] [facility] Comment on above: Performed By: #### P REGU #### [facility] [address] [address] [address] Sara Rey CO2 [Moles/Vol] 25.4 mmol/L Normal 21.0-32.[address] [facility] Comment on above: Performed By: #### P REGU #### [facility] [address] [address] [address] Sara Rey Creatinine [Mass/Vol] 0.63 mg/dL Normal 0.55-1.02 [facility] Comment on above: Performed By: #### P REGU #### [facility] [address] [place] [address] Dr. Sara Rey EGFR-AF BOLIVIAN >60 Normal >=[address] [facility] Comment on above: Performed By: #### P REGU #### [facility] [address] [address] [address] Sara Rey EGFR-NON AF BOLIVIAN >60 Normal >=60 [facility] Comment on above: Performed By: #### P REGU #### [facility] [address] [place] [address] Dr. Sara Rey Glucose [Mass/Vol] 97 mg/dL Normal 74-[address] [facility] Comment on above: Performed By: #### P REGU #### [facility] [address] [place] [address] Dr. Sara Rey Potassium [Moles/Vol] 3.4 mmol/L Critically low 3.5-5.[address] [facility] Comment on above: Performed By: #### P REGU #### [facility] [address] [address] [address] Sara Rey Sodium [Moles/Vol] 139 mmol/L Normal 136-[address] [facility] Comment on above: Performed By: #### P REGU #### [facility] [address] [place] [address] Dr. Sara Rey Urea nitrogen [Mass/Vol] 5.0 mg/dL Critically low 7.0-18. 0 [facility] Comment on above: Performed By: #### P REGU #### [facility] [address] [place] [address] Dr. Sara Rey Urea nitrogen/Creatinine [Mass ratio] 7.9 mg/mg Normal [facility] Comment on above: Performed By: #### P REGU #### [facility] [address] [place] [address] Dr. Sara Rey PREG QUANT HCGon 02-02-2023 HCG QUANT <1 Normal [facility] Comment on above: Performed By: #### D SDOALC #### [facility] [address] [place] [address] Dr. Sara Rey HCG RANGE SEE BELOW Normal [facility] Comment on above: Result Comment: 5-50 0.2-1 WEEK 50-500 1-2 WEEKS 100-5,000 2-3 WEEKS 500-10,000 3-4 WEEKS 1,000-50,000 4-5 WEEKS 10,000-100,000 5-6 WEEKS 15,000-200,000 6-8 WEEKS 10,000-100,000 2-3 MONTHS Performed By: #### D SDOALC #### [facility] [address] [place] [address] Dr. Sara Rey COMPLIANCE DRUG SCREENon PDF . Normal [facility] Comment on above: Performed By: #### D SDOALC #### [facility] [address] [place] [address] Dr. Sara Rey Summary FINAL Normal [facility] Comment on above: Result Comment: ======= TOXASSURE COMP DRUG ANALYSIS,UR ======= Test Result Flag Units Drug Present and Declared for Prescription Verification Buprenorphine 163 EXPECTED ng/mg creat Norbuprenorphine 705 EXPECTED ng/mg creat Source of buprenorphine is a scheduled prescription medication. Norbuprenorphine is an expected metabolite of buprenorphine. Gabapentin PRESENT EXPECTED Drug Present not Declared for Prescription Verification Carboxy-THC >794 UNEXPECTED ng/mg creat Carboxy-THC is a metabolite of tetrahydrocannabinol (THC). Source of THC is most commonly herbal marijuana or marijuana-based products, but THC is also present in a scheduled prescription medication. Trace amounts of THC can be present in hemp and cannabidiol (CBD) products. This test is not intended to distinguish between eoaab-9-jkpqzpdjeaojhhakngay, the predominant form of THC in most herbal or marijuana-based products, and csuak-5-lvuxljusxgyoqeyojymv. Dextrorphan/Levorphanol PRESENT UNEXPECTED Dextrorphan is an expected metabolite of dextromethorphan, an rozj-hqa-itgycso or prescription cough suppressant. Levorphanol is a scheduled prescription medication. Dextrorphan cannot be distinguished from levorphanol by the method used for analysis. Drug Absent but Declared for Prescription Verification Acetaminophen Not Detected UNEXPECTED Acetaminophen, as indicated in the declared medication list, is not always detected even when used as directed. ======= Test Result Flag Units Ref Range Creatinine 126 mg/dL >=20 ======= Declared Medications: The flagging and interpretation on this report are based on the following declared medications. Unexpected results may arise from inaccuracies in the declared medications. Note: The testing scope of this panel includes these medications: Buprenorphine. (Suboxone) Buprenorphine. (Zubsolv) Gabapentin Gabapentin (Neurontin) Note: The testing scope of this panel does not include small to moderate amounts of these reported medications: Acetaminophen (Tylenol) Note: The testing scope of this panel does not include following reported medications: Naloxone (Suboxone) Naloxone (Zubsolv) ======= For clinical consultation, please call . ======= Performed By: #### D SDOALC #### [facility] [address] [address] [address] Sara Rey URon 01-12-2023 , QUAL Negative Normal NEGATIVE [facility] Comment on above: Performed By: #### E RAYMOND PORTER #### [facility] [address] [address] [address] Sara Rey US TRANSVAGINALon 12-08-2022 US TRANSVAGINAL EXAMINATION: US TRANSVAGINAL HISTORY: Unspecified dyspareunia (CODE) PT/FAX US PELVIS NOTE:TRANSVAGINAL IF INDICATED Injury/Trauma or Illness?:Illness/Other How long have you had these symptoms (acute/chronic)?:Acute N94.10 Unspecified dyspareunia (CODE) COMPARISON: 11/18/2022 TECHNIQUE: Pelvic sonography was performed utilizing grayscale and color Doppler technique. FINDINGS: Anteverted uterus measures 6.7 x 4.1 x 3.0 cm. Uterine endometrial stripe measures 0.8 cm in thickness. Normal right ovary measures 3.2 x 1.8 x 2.3 cm. Normal color Doppler flow. Left ovary measures 3.8 x 2.4 x 2.7 cm. Somewhat isoechoic round left intra-ovarian focus measuring 2.0 cm. Increased through transmission is noted. No internal color flow. No significant free fluid within the pelvis. IMPRESSION: 1. Indeterminate although probably benign left intra-ovarian focus measuring 2.0 cm, not seen on most recent pelvic ultrasound, therefore favored to represent a hemorrhagic cyst versus artifact/normal parenchyma. Given somewhat atypical appearance, recommend follow-up ultrasound in 6-8 weeks to ensure resolution. 2. Normal right ovary and uterus/endometrium. Workstation ID: [id number] Dictated by: SHILPA BOO on ThuDec 09, 2022 2:50:11 PM EDT Transcribed by: SHILPA BOO on ThuDec 09, 2022 2:50:11 PM EDT Finalized by: SHILPA BOO on ThuDec 09, 2022 2:50:11 PM EDT Normal [facility] Comment on above: Order Comment: PT/FA X US PELVIS NOTE:TRANSVAGINAL IF INDICATED Injury/Trauma or Illness?:Illness/Other How long have you had these symptoms (acute/chronic)?:Acute Reason for exam?:dysparunia History of cancer?:u Surgeries, chemotherapy, or radiation?:Right ovary cyst removal Type of Exam?:Initial Additional signs and symptoms?:n ER URINE PROFILEon 3 Bilirubin Ql (U) Negative Normal NEGATIVE [facility] Comment on above: Performed By: #### C BC #### [facility] [address] [place] [address] Dr. Sara Rey Clarity (U) CLEAR Normal CLEAR [facility] Comment on above: Performed By: #### C BC #### [facility] [address] [place] [address] Dr. Sara Rey Color (U) LT. YELLOW Normal YELLOW [facility] Comment on above: Performed By: #### C BC #### [facility] [address] [place] [address] Dr. Sara Rey ERUPAULINAD A micrscopic examina tion will be performed if indicated. Normal [facility] Comment on above: Performed By: #### C BC #### [facility] [address] [place] [address] Dr. Sara Rey Glucose Ql (U) Negative Normal NEGATIVE [facility] Comment on above: Performed By: #### C BC #### [facility] [address] [place] [address] Dr. Sara Rey Hemoglobin Ql (U) TRACE-INTACT Abnormal NEGATIVE [facility] Comment on above: Performed By: #### C BC #### [facility] [address] [place] [address] Dr. Sara Rey Ketones Ql (U) Negative Normal NEGATIVE [facility] Comment on above: Performed By: #### C BC #### [facility] [address] [place] [address] Dr. Sara Rey LEUKOCYTES SMALL Abnormal NEGATIVE [facility] Comment on above: Performed By: #### C BC #### [facility] [address] [place] [address] Dr. Sara Rey Nitrite Ql (U) Negative Normal NEGATIVE [facility] Comment on above: Performed By: #### C BC #### [facility] [address] [place] [address] Dr. Sara Rey pH (U) 7.0 [pH] Normal 5-[address] [facility] Comment on above: Performed By: #### C BC #### [facility] [address] [place] [address] Dr. Sara Rey SPEC GRAVITY 1.010 Normal 1.005-<=1. [address] [facility] Comment on above: Performed By: #### C BC #### [facility] [address] [place] [address] Dr. Sara Rey UA PROTEIN Negative Normal NEGATIVE/ TRACE [facility] Comment on above: Performed By: #### C BC #### [facility] [address] [place] [address] Dr. Sara Rey UR MICRO IND INDICATED Normal [facility] Comment on above: Performed By: #### C BC #### [facility] [address] [place] [address] Dr. Sara Rey Urobilinogen Qn (U) 2.0 {Jose'U}/dL Abnormal 0.2 - 1. [address] [facility] Comment on above: Performed By: #### C BC #### [facility] [address] [place] [address] Dr. Sara Rey URon 11-18-2022 , QUAL Negative Normal NEGATIVE [facility] Comment on above: Performed By: #### B MP, LIVER, PREGQNT #### [facility] [address] [place] [address] Dr. Sara Rey URINE MICROSCOPIC ONLYon BACTERIA NONE SEEN Normal NONE SEEN [facility] Comment on above: Performed By: #### C BC #### [facility] [address] [place] [address] Dr. Sara Rey Bacteria identified Cx Nom (U) NOT INDICATED Normal [facility] Comment on above: Performed By: #### C BC #### [facility] [address] [place] [address] Dr. Sara Rey CAST NONE SEEN Normal NONE SEEN [facility] Comment on above: Performed By: #### C BC #### [facility] [address] [place] [address] Dr. Sara Rey Crystals LM Nom (Urine sed) NONE SEEN Normal NONE SEEN [facility] Comment on above: Performed By: #### C BC #### [facility] [address] [place] [address] Dr. Sara Rye Epithelial cells LM Ql (Urine sed) FEW Abnormal NONE SEEN /RARE [facility] Comment on above: Performed By: #### C BC #### [facility] [address] [place] [address] Dr. Sara Rey MUCOUS NONE SEEN Normal NONE SEEN [facility] Comment on above: Performed By: #### C BC #### [facility] [address] [place] [address] Dr. Sara Rey RBC 0-2 Normal 0-[address] [facility] Comment on above: Performed By: #### C BC #### [facility] [address] [place] [address] Dr. Sara Rey WBC 2-5 Abnormal NONE SEEN [facility] Comment on above: Performed By: #### C #### [facility] [address] [place] [address] Dr. Sara Rey US PELVIS TRANSVAGon 023 US PELVIS TRANSVAG EXAMINATION: US PELV IS TRANSVAG TECHNIQUE: Transvaginal sonography. Grayscale and color flow Doppler imaging. HISTORY: Pain in pelvis. COMPARISON: 10/07/2022 FINDINGS: Uterus and cervix: Uterus measures 7.6 x 2.6 x 3.7 cm. No focal abnormality. Endometrium: Thickness measures 1.1mm. Right ovary: Not visualized due to loops of bowel and bowel gas in pelvis. Left ovary: Measures 3.4 x 1.9 x 2.3 cm. Normal teague scale and Doppler appearance. Adnexa: No adnexal mass lesion. Cul-de-sac: Normal, non or minimal free fluid likely physiologic. IMPRESSION: No significant pelvic abnormality. Electronically authenticated by: YVES MOREAU Date: 2022-11-18 21:[address] [facility] Coding Summary.on 10-21-2022 Coding Summary. CD:[id number] Gh0bWw +PGhlYWQ+VY2BLEQtY18knYVyd M6NO8pVKT3MPKPGGNFCZR2TUD1 yhZL4WQrnQ1JscyMj XsjumVFqBW68SSi8DKT7wWduBD zynX2tdFYuB3x9WeLjVJ81hV19 NAzhNLTgEaT7GhBpfyyfyWCj M6sbQsUkbSKnUag+PHRhYmxlIH odAXRuWIewZPBoOyGyrXbyQZ1x Wl3uEVBjHWChcGuxuBDoOyMb j8hqSDGcOZxcYA2nlZlpE3YxeM U0RWHlt8s8Ok61bAP+PHRkIHN0 qPnwMPebe299WaLlz1ywETE6 cHIaJGyuKNR7X06kv3X9QSNsLU VsCGJ7oDS3mH4nkKnawwftP6Ms oMQzMkG3QJM6oLEpvH3pyXmo ojmwwQ2qLec+B90MRP7KQBORBT 4KBms1T7RzIovliLI+UR51DCFi YT88jCSloHYsd3yrxVd0FxBc XJTuBHB4uIcqMDzcx0WzZYAjB4 9ooOSam4T8BEUshOvwaJPnTyBf rTA1aP1vALdnnudwa7uctwyn Zahpt5clxm37wM24L10yVLtnMK XyXKI6FHPuKYRnsGvqpu8bbS5r Ii8+LLgku2ako0xtlEk3GjNd EDUbxiXsyWwjSCW7x3BeZq43Z2 SgxCvqn4GyYhy2hn30tVMix5G8 zBY7KOrnIRIrgP0hMKfdRtN7 PZNdTaGhdH57vIMqQLdfMd2fuY mscMedWC5oXGJsdksaKWSslM3p FEPdmTAcpPyeEC0oDXFapmuw l825BdFoTPB9OXWzxYFzE0YusO 9yQuPiPCFiFVJmG3EltMPzFAgd Q480GZlaXgH5JXBxexWtO3It SHRsoZeoYwT3g6X6Zc2Ai0Nuza irVYJ5DQcfGIXrBvJ8LhWlJsX7 W4LgVju5HEPnoPuoVD5uD5Cc LJWgiheiabmqeOJ8WYBrAOEbpU 90uPGbTJknXm8va2Z7b630CJBh GDIctZ73Ae7xaEzzXFKyiQER uM4wsgigk6wptmqmJcGhXGFyMW w7OOj0KFWapEsjQuYmHXY2QeJ8 CLK7aSDgxA7zmDpdytotqZ8o Oyc+T65yjV9zKKD1SAY3dyvfII OnyxJeIX97AP69T9MaYwuslSSc bGU+ESAjzfDibMjxUF3tTbBb k2kma4DlBGerX5KjWGJfZGpqEn a7MGJsWWI3zVB1mS5yHHUoVWsb e6U8cXI4I9NtzlJpkm9ar8gt TVOdWOwiO57plZDme6I2JLYhrC J8JGDdpBdbVnAshX14Lms+PGNv bWcwk4VxJexfb8fwq8wseRi9 MjCyVTSmnmEseQhcTML4x2XsRg 11P76wVDgiEYVlCWZuFRWjDJOw zXribx4arY2yJm7+PGNvbCB3 tJO0kW8yQIXfNuD2PHpdG236Ny UftTHhWpvfn5zvd4qsqXt0DmJn XSKqcdOqlZdcFJQ9d4NhZk58 C86lLIehOJPwNRNaFGJoNREosU moef9nsL4lRh7+TB2ld9zzzu19 wS16iFL+HXDoLTX8iVgmMNwo HZPleQ2lCSxuOlQ2UMBzXbFhtS 16eBZdWZwwXu8euGprlQcwJW6y INWtaqjiw471WmHrp2jeXDIk iINgBTagCMD2D44ia9X6EZOnHM GtGVS6zZA1hB4ucStjlyeklSWt vQlcqdDltAccUBbxERzoH387 IHRvcDsnPlBhdGllbnQgTmFtZT t7Q1ObQpk5LPNwrSpiGB6nvAEc BTrgQm3dpHaajHwkFD9sZKMy zeahz801VlYkc6ycUAFzpWPvYP ucMRE8J12ua6U5ZINiIPUoYRA2 zJM2dQ3soAlkvmffgGQznNlr phJbiYpyASlyHKqlS356DJZopT bxLnZrijSvVJSjnGT4SF06JY50 qWJuq3V1lES8H9WoANBxjtbb chkmdKQ0XCWnLYTryO64Ua7qdM igQu4oODLzYEO7EUAroZJgR6Hh dU7jQbTzRCBmCSIuR0RzsTSc PSdwR208SQghXaL8KRFzshGrU1 EfULRroSdtKcL4t8B0Sv6GO2I5 EY05BW75wADfv4R8oYD4B0Mg VBPgharqllwgsEV5ZOVrVIFmxI 80Av1qbGgkIp6jAJTrNIR4MYOz hLJeT7PejC5wHkJiWCDnFUUc W5OzhGGxUZsaB595GLagRkC6YU OdbeLaO7UwJOEhwCvbAyY3d5L4 Nw2QYFp4YS39KU92bKDbg4L3 rLW9K1EsSJAuakqgvgxsrRP5JL OvNYWcbX07Tm9oaUnkAy2pLNNz TUF7UZLiaZVkB6ZkrO4lBeOp AWUrWMTqT2LvrCNaJQqgV084UF tcYaJ7SBBgifJdA0LdUGObiXai ZyR1o4Q0Ph8TMCKqBO95QEU0 eDA3GJ13ZE90F2PkGoukeKAkkH U+PHRhYmxlIHdpZHRoPScxMDAl MqIapCsfVO6gJk6cOMDpESLp tKkxfZDoAiIej1wmTYUnVJyrBC 4ouNquC9VjxBQ3CERyc0x2Jt60 E39aD4XpwQR+SZRnrDU4kQW1 bJ6hAmCsKqZ2QKmnL265OpUxpV VzQwmbl6ojx3hoaJj5YmG8ZCPg vyVpzHstXBU4j9PbLx28K96v IHdpZHRoPSIxNSUiIHZhbGlnbj 6fzS5eKv5+OGOafYL3nZV6zR5l NkYwSuN0HGsxM301WzEmmRFt Skyhf5dnp9vvtKv3HdSlRQIsbr SvlAmcYXG8u7YyXc41S0MrtWnb w5DuHku3ct19uRRea9O1lTA1 H6WeOVHvyqbzyZIcaUuqAA6pMI PhwvgrZOSymZ0ySOEhJ9v8UxAf BdX5WVlkQ3VinfK0SPGxcHUs WVayEIF2P42ze7T7JVJuSELrWC R0gIY2gB0cvIudtmvvqOCjoDki exDxgRhfIXiiNPtjO900CUVm eEipJMCkeX9aXRQhxHMwhHobLT 4wNTBpbjsnPkpFTktJTlMsIFJB UVVFTDwvdGQ+UVJdWEC8kUky PXbuXOPrsM6tYSLxN3v3YlFhXm Z2XHppC8YrZEOzzjrqHy42fY4a HoFtSjU2WQzkQ8NqkzE8ONGr tYLgZIzgKLO2N39bi8W2ABPqUD CbYOQ5fKQ4zN7ghXvkbcgcvSRx uOwcbeHqeOucEQonTYxdX998 GHWdwUyzNmBpTxM4RiX0IJB4M7 ZmAov5XWSvpDecUV5loYQrFGwg Ob4azVjfkTwrBQ9mOQAlakme TLVzbT2jPLMxqPVrlZizFY8qUD Qpayowa069BbGaNKN8NMRwvBXj Z0JfsW9iPzSvODUkBALjW7Ry sUPuFHmhS106PLhwEdI4QSYwut YpU5MnDVRuaSvzAzY9r4B9Jd2p NyBZZWFyczwvdGQ+PHRkIHN0 mLrjYZqtGBYonI2oKIYbT6n9Vy VwZaI1RXrfZ5CsAZEkidohOq51 wO5vTzSuUvP0UTzcX8UpnhV9 TUPilCNuYGplUZE1S48wj3H6GX VbNJJdDBW5hZE2jV9wrWuccdxy bGVmdDsgdmVydGljYWwtYWxp N939JHNltQmpQqTzrWLzQVpimQ Q+DKYiGQF7rPmzZKwsTVLcaZ1y XGChW0v6KpAmMwX3KYiqR0Yu AZQmnazeHt33lL8dEsKmXxX8ZX ayP0IljcF6UJSolYMdMGtzBSH5 T23qj1T5UXBmJMJbBHM7oYW7 vG9pfVcxochocKMgjJzjppPgsD neYRopSZrcW099MISdfSxoUgnx FnYRqd7uZC2oXyedyPI+PC90 pw95W7EgAomuGfv6MHKtBLL1rL D1jN0lPNOuAHckp8U5tZM8D4Xh tfDdxk0vq1zaNACwKKsaX56s bETbr5A8GZAayQR4KBVxiFhiVt QawC55Ejr+AIMmrNmjy1FxSxxy k4mdh9megJs4YmPuSFHildPw lCrgEQW9h8PwCg33O28oGAtgKD MqXFLsBEOgPGZkeAjzqx8evX2l Ii8+XBBydSG9sOX6oN7cGhCg RfR8RCtjG358AeSxqBSjRtraf9 fkc6tjgYv2AwBxQPInhwAjkPlh XXN4g3LmUf55W8AgnAopb7Nx Uka7ay79kQPwl8S6cDF2J6ZmFH XttpzeuPLxtMhwWC6eIMBejcxn TBHcbX6iTHCfI2j9JjHkGlB9 GJeaM0UldkY3VZAjgNGaQIOcmK BNcN6dkqljq9ptzuwiKmJzIXNg YDx5TIq9CBRkcVcuFyBaBNL4 KxN2ETG2hFJplI0sxWifxsdycT 9wOyc+DJv0q9fpuGQzAP7ayPC8 RW46UL83uSEgp5J3eKQ8Y1Fj BBIfsdxhxnggiLN8LKZcFLUwpT 00Sx6rqSinGk5jTHKxLWB2HBXh nMUwK5FfoJ2wWlMzRHQgRDIp U2DxvYWlQItzJ390UZwhZsC9FK JtriDeA9PiSTMlxPjgEsY6q4V9 Zh5MMC25KA43KS43tVQrs3A5 cZD3U3RkUZAkhhsahkvofTB8AT KsCBUzyR91Pf6jcUigTb4qUBLg BUA3BLQpvXNuH0NbyE6rYuAl HCFjDDWfJ6BjwZPzCWhjP375JH ycLkF4CXDkmxPoY0CxMGDsrYdx LhR0f4Z7Mx7XXr88GY19YJ19 qNObi5Y5pKZ8V7XcJCEpqyelix lksZO9GPWqQJSdsO58Go9zmCll Fs1nOJOhVOR2ZNIxfTCnQ7Fr hK8cBpDzCEHeTZVyK8EshXOgXI hjK098UKyuBuU3HBJuqqYhH6Yh ZVWmvFoyVcB1f0I4Aj2RRBll hvh5B7VjJxiehVE+VF29ZDYlBZ 69gTArvXInz6fllLk8MfMyBNLo QEW1aTntMIuoh2HcJUByC21z bGFw (more content not included)... Normal [facility] Lab Reportson 10-20-2022 Lab Reports [id number]#[id number]:127 Normal [facility] C Urineon 10-17-2022 Bacteria identified Cx Nom (U) Microbiology PROCEDURE: Urine Culture [R1] SOURCE: U CleanCatch BODY SITE: COLLECTED DATE/TIME: 10/15/2022 11:14 EST RECEIVED DATE/TIME: 10/15/2022 18:20 EST START DATE/TIME: 10/15/2022 18:20 EST FREE TEXT SOURCE: ABE ARMAS, HAI FISH PA-C, HAI Anderson FINAL REPORTS Final Report [] Verified Date/Time: 10/17/2022 11:49 EST 30,000 cfu/ml Enterobacter aerogenes 2,000 cfu/ml Mixed skin contaminants SUSCEPTIBILITY RESULTS _ LEGEND: S=Susceptible, N/R=Not Reported, Blank=Data not available, or drug not advisable or tested, I=Intermediate, ESBL=Extended spectrum beta-lactamase, R=Resistant, TFG=Thymidine-dependent strain, MARIBETH=Beta-lactamase positive, JACQUELINE=mcg/m;(mg/L), S*=Predicted susceptible interp, R*=Predicted resistant interp Entaer Antibiotic JACQUELINE Dilutn JACQUELINE Interp Amikacin <=16 S Ampicillin >16 R Ampicillin/ <=8/4 R* Sulbactam Aztreonam <=4 S Cefazolin >16 R Cefepime <=2 S Cefoxitin >16 R Ceftazidime <=1 S Ceftazidime/ <=8 S Avibactam Ceftriaxone <=1 S Ciprofloxacin <=1 S Ertapenem <=0.5 S Gentamicin <=4 S Levofloxacin <=2 S Meropenem <=1 S Nitrofurantoin 64 I Piperacillin/ <=16 S Tazobactam Tetracycline <=4 S Tigecycline <=2 S Tobramycin <=4 S Trimethoprim/ <=2/38 S Sulfa Performing Locations R1: This test was performed at: [facility], [address] [place] [address], [id number] , , Normal [facility] Comment on above: Performed By: #### [id number] ####[facility] [id number] [place] [address] ED Note-Physicianon 10-16-19 ED Note-Physician [id number]#[id number]:127 Normal [facility] Formson 10-16-2022 Forms [id number]#[id number]:127 Normal [facility] RAD - CT Reporton 10-16-2022 RAD - CT Report [id number]#1.00CD:127 Normal [facility] Screenson 10-16-2022 Screens [id number]:127 Normal [facility] FERRITINon 10-15-2022 Ferritin [Mass/Vol] 90.0 ng/mL Normal 6.2-137.0 [facility] Comment on above: Performed By: #### B MP, LIVER, PREGQNT #### [facility] [address] [place] [address] Dr. Sara Rey LIVER PROFILEon 10-15-2022 Albumin [Mass/Vol] 4.0 g/dL Normal 3.4-5.0 [facility] Comment on above: Performed By: #### P REGU #### [facility] [address] [id number] Sara Rey Albumin/Globulin [Mass ratio] 1.1 {ratio} Normal [facility] Comment on above: Performed By: #### P REGU #### [facility] [address] [address] [address] Sara Rey ALP [Catalytic activity/Vol] 55 U/L Normal 46-116 [facility] Comment on above: Performed By: #### P REGU #### [facility] [address] [address] [address] Sara Rey ALT [Catalytic activity/Vol] 197 U/L Critically high 14-59 [facility] Comment on above: Performed By: #### P REGU #### [facility] [address] [address] [address] Sara Rey AST [Catalytic activity/Vol] 108 U/L Critically high 15-37 [facility] Comment on above: Performed By: #### P REGU #### [facility] [address] [address] [address] Sara Rey BILI, CONJUGATED 0.2 mg/dL Normal 0.0-0.2 [facility] Comment on above: Performed By: #### P REGU #### [facility] [address] [address] [address] Sara Rey Bilirubin [Mass/Vol] 0.6 mg/dL Normal 0.2-1.0 [facility] Comment on above: Performed By: #### P REGU #### [facility] [address] [address] [address] Sara Rey Globulin (S) [Mass/Vol] 3.5 g/dL Normal T [facility] Comment on above: Performed By: #### P REGU #### [facility] [address] [address] [address] Sara Rey Protein [Mass/Vol] 7.5 g/dL Normal 6.4-8.2 [facility] Comment on above: Performed By: #### P REGU #### [facility] [address] [address] [address] Sara Rey Patient Educationon 10-15-19 Patient Education Obstetrics and Gynec ology Urinary Tract Infection, Adult A urinary tract infection (UTI) is an infection of any part of the urinary tract. The urinary tract includes the kidneys, ureters, bladder, and urethra. These organs make, store, and get rid of urine in the body. Your health care provider may use other names to describe the infection. An upper UTI affects the ureters and kidneys (pyelonephritis). A lower UTI affects the bladder (cystitis) and urethra (urethritis). What are the causes? Most urinary tract infections are caused by bacteria in your genital area, around the entrance to your urinary tract (urethra). These bacteria grow and cause inflammation of your urinary tract. What increases the risk? You are more likely to develop this condition if: ? You have a urinary catheter that stays in place (indwelling). ? You are not able to control when you urinate or have a bowel movement (you have incontinence). ? You are female and you: ? Use a spermicide or diaphragm for control. ? Have low estrogen levels. ? Are . ? You have certain genes that increase your risk (genetics). ? You are sexually active. ? You take antibiotic medicines. ? You have a condition that causes your flow of urine to slow down, such as: ? An enlarged prostate, if you are male. ? Blockage in your urethra (stricture). ? A kidney stone. ? A nerve condition that affects your bladder control (neurogenic bladder). ? Not getting enough to drink, or not urinating often. ? You have certain medical conditions, such as: ? Diabetes. ? A weak disease-fighting system (immunesystem). ? Sickle cell disease. ? Gout. ? Spinal cord injury. What are the signs or symptoms? Symptoms of this condition include: ? Needing to urinate right away (urgently). ? Frequent urination or passing small amounts of urine frequently. ? Pain or burning with urination. ? Blood in the urine. ? Urine that smells bad or unusual. ? Trouble urinating. ? Cloudy urine. ? Vaginal discharge, if you are female. ? Pain in the abdomen or the lower back. You may also have: ? Vomiting or a decreased appetite. ? Confusion. ? Irritability or tiredness. ? A fever. ? Diarrhea. The first symptom in older adults may be confusion. In some cases, they may not have any symptoms until the infection has worsened. How is this diagnosed? This condition is diagnosed based on your medical history and a physical exam. You may also have other tests, including: ? Urine tests. ? Blood tests. ? Tests for sexually transmitted infections (STIs). If you have had more than one UTI, a cystoscopy or imaging studies may be done to determine the cause of the infections. How is this treated? Treatment for this condition includes: ? Antibiotic medicine. ? Oiak-qvb-amdtukk medicines to treat discomfort. ? Drinking enough water to stay hydrated. If you have frequent infections or have other conditions such as a kidney stone, you may need to see a health care provider who specializes in the urinary tract (urologist). In rare cases, urinary tract infections can cause sepsis. Sepsis is a life-threatening condition that occurs when the body responds to an infection. Sepsis is treated in the hospital with IV antibiotics, fluids, and other medicines. Follow these instructions at home: Medicines ? Take ocrh-mlu-gvynmfe and prescription medicines only as told by your health care provider. ? If you were prescribed an antibiotic medicine, take it as told by your health care provider. Do not stop using the antibiotic even if you start to feel better. General instructions ? Make sure you: ? Empty your bladder often and completely. Do not hold urine for long periods of time. ? Empty your bladder after sex. ? Wipe from front to back after a bowel movement if you are female. Use each tissue one time when you wipe. ? Drink enough fluid to keep your urine pale yellow. ? Keep all follow-up visits as told by your health care provider. This is important. Contact a health care provider if: ? Your symptoms do not get better after 1?2 days. ? Your symptoms go away and then return. Get help right away if you have: ? Severe pain in your back or your lower abdomen. ? A fever. ? Nausea or vomiting. Summary ? A urinary tract infection (UTI) is an infection of any part of the urinary tract, which includes the kidneys, ureters, bladder, and urethra. ? Most urinary tract infections are caused by bacteria in your genital area, around the entrance to your urinary tract (urethra). ? Treatment for this condition often includes antibiotic medicines. ? If you were prescribed an antibiotic medicine, take it as told by your health care provider. Do not stop using the antibiotic even if you start to feel better. ? Keep all follow-up visits as told by your health care provider. This is important. This in (more content not included)... Normal [facility] TSHon 10-15-2022 TSH 0.836 uIU/mL Normal 0.358-3.[address] [facility] Comment on above: Performed By: #### P REGU #### [facility] [address] [address] [address] Sara Rey Urology Office/Clinic Noteon 10-15-2022 Urology Office/Clinic Note Chief Complaint New Patient HPI Staff New Patient Joe is a 26 y/o female here for a f/u to [facility] for UTI. Pt had a CT scan done that was negative. Dysuria: _denies Incomplete bladder emptying: _denies Hematuria: _denies Frequency: _every hour Urgency: _mild Nocturia: _denies Stream: _steady Leaking: _denies Post void dripping: _denies Wearing pads/ Depends: _denies Urge incontinence: _denies Stress incontinence: _denies Incontinence without Sensory Awareness: _denies Abdominal pain: _denies Flank pain: _denies Sexual complaints: _ History of Present Illness staff HPI reviewed and agree. Review of Systems PHQ Score Initial Depression Screen Score: 0 no fever, chills, malaise, myalgia. no rash/lesions. no chest pain, palpitations, or SOB. no abdominal pain, nausea, vomiting. no unilateral calf swelling, redness, pain Physical Exam Vitals & Measurements HR: 59(Peripheral) BP: 148/77 HT: 65 in HT: 166 cm WT: 68 kg WT: 149.6 lb BMI: 24.68 General: nontoxic, NAD Mouth: moist mucosa Lungs: normal respiratory effort Cardio: regular rate, good distal perfusion Abdomen: nondistended, no suprapubic distention or tenderness, no CVA tenderness Neurologic: Grossly normal Skin: No rashes or suspicious lesions Assessment/Plan 1. Frequent UTI (N39.0: Urinary tract infection, site not specified) most recent UTI ___10/07/22, treated by [facility] ER w Keflex UA in office today shows trace blood and small leuks. will send for cx to ensure UTI cleared. current UTI symptoms no UTI frequency every 1-2 mos UTIs started worsening in the past 1-2 yrs Prior to that averaged UTIs very rarely none as a child as far as she knows. started in her teens. pt's typical UTI sx include ____low back pain, frequency hx stones no immunosuppressed - has Hep C. is not on any medications for this currently. post-menopausal/hysterecto my no proper hygiene habits: wipes front to back every time yes avoids baths/hot tubs yes avoids scented [employer] products yes urinates after sexual activity yes Today we discussed the following methods to decrease frequency of UTIs: 1) Increase fluids. Aim for at least 2L daily. pt admits to typically only drinking Mountain Dew and Monster energy drink. General bladder health reviewed and pt education provided. Bladder irritant list provided for pt to review. 2) Start post-coital abx - Bactrim SS 1 tab after sexual activity. Side effects, risks, and benefits discussed. No stones on recent CT to explain freq UTIs. Pt advised to contact our office w all future UTI sx so we can monitor urine cx results, treat appropriately (may require extended course abx), and monitor frequency of infections. Pt advised if develops fever, severe flank pain, vomiting - needs to go to ER. If continues to get breakthrough UTIs, we will consider cystoscopy w possible UD. Ordered: sulfamethoxazole-trimethop rim, See Instructions, 15 tab(s), Refill(s) 5, 1 tab(s) Oral following sexual intercourse for UTI prevention., [id number], 166, cm, 10/15/22 10:52:00 EST, Height/Length Dosing, 68, kg, 10/15/22 10:52:00 EST, Weight Dosing E&M of New Patient Moderate 45-59 Min 41972 Urine Culture Follow-up With When Contact Information HAI FISH PA-C, URL Within 1 year Additional Instructions: Patient Education Urinary Tract Infection, Adult Problem List/Past Medical History Ongoing Bipolar disorder ETD (eustachian tube dysfunction) Frequent UTI Historical Anxiety Bipolar Depression Schizoaffective schizophrenia Procedure/Surgical History Appendectomy; (2013), Cholecystectomy; (2011), Adenoidectomy, primary; younger than age 12, Cyst. Medications Bactrim 400 mg-80 mg Tab, See Instructions, 5 refills busPIRone, Oral, BID Neurontin, Oral, TID Allergies Seafood (Rash) penicillin (UNSURE) Social History Substance Abuse Current, Marijuana, Daily, Started age 12 Years., 10/15/2022 Tobacco 10 or more cigarettes (1/2 pack or more)/day in last 30 days Tobacco Use:. Cigarettes, 10/15/2022 Family History Diabetes mellitus type 1: Mother. High blood pressure: Mother. Migraine: Mother. Immunizations Vaccine Date Status influenza virus vaccine, inactivated 10/05/2020 Recorded hepatitis A adult vaccine 10/05/2020 Recorded influenza virus vaccine, inactivated 11/04/2011 Recorded poliovirus vaccine, inactivated 05/12/2000 Recorded measles/mumps/rubella virus vaccine 05/12/2000 Recorded DTaP, unspecified formulation 05/12/2000 Recorded Hib, unspecified formulation 01/29/1996 Recorded DTaP, unspecified formulation 01/29/1996 Recorded measles/mumps/rubella virus vaccine 10/29/1995 Recorded hepatitis B pediatric vaccine 05/11/1995 Recorded DTP-Hib 05/11/1995 Recorded hepatitis B pediatric vaccine 03/11/1995 Recorded DTP-Hib 03/11/1995 Recorded hepatitis B pediatric vaccine 1994 Recorded DTP-Hib 1994 Recorded Normal [facility] Comment on above: Result Comment: Elec tronically Signed By: ABE ARMAS, HAI Anderson\.br\Date and Time Signed: 10/15/22 12:32 EST XR LSPINE 2_3 VIEWSon 2022 XR LSPINE 2_3 VIEWS EXAMINATION: XR LSPI NE 2_3 VIEWS HISTORY: Lumbar radiculopathy COMPARISON: No relevant comparison available. FINDINGS: BONES: Normal. No significant spondylosis, scoliosis, fracture, or visible bony lesion. DISC SPACES: Normal. No significant disc height narrowing, subluxation, or endplate abnormality. PARASPINOUS: Negative. No paraspinous abnormality is seen. OTHER: Surgical clips from cholecystectomy. IMPRESSION: No acute disease. Electronically authenticated by: PJ QUINONES Date: 2022-10-15 16:[address] [facility] CULTURE URINEon 10-09-2022 CULTURE URINE Culture Observations : GREATER THAN TWO ORGANISMS PRESENT. PLEASE RESUBMIT CLEAN CATCH MID-STREAM URINE IF CLINICALLY INDICATED. Normal [facility] Comment on above: Performed By: #### B MP, LIVER, PREGQNT #### [facility] [address] [address] [address] Sara Rey CBC AUTO DIFFon 10-07-2022 BASO # 0.1 103/ul Normal 0.0-0.1 [facility] Comment on above: Performed By: #### P REGU #### [facility] [address] [place] [address] Dr. Sara Rey Basophils/100 WBC (Bld) 0.6 % Normal 0.2-2.0 [facility] Comment on above: Performed By: #### P REGU #### [facility] [address] [place] [address] Dr. Sara Rey EO # 0.1 103/ul Normal 0.0-0.7 [facility] Comment on above: Performed By: #### P REGU #### [facility] [address] [place] [address] Dr. Sara Rey Eosinophils/100 WBC (Bld) 1.4 % Normal 0.9-7.0 [facility] Comment on above: Performed By: #### P REGU #### [facility] [address] [place] [address] Dr. Sara Rey Erythrocyte distribution width (RBC) [Ratio] 12.0 % Normal 11.0-15.0 [facility] Comment on above: Performed By: #### P REGU #### [facility] [address] [place] [address] Dr. Sara Rey Hematocrit (Bld) [Volume fraction] 36.7 % Normal 36.0-48.0 [facility] Comment on above: Performed By: #### P REGU #### [facility] [address] [place] [address] Dr. Sara Rey Hemoglobin (Bld) [Mass/Vol] 13.2 g/dL Normal 12.0-16.0 [facility] Comment on above: Performed By: #### P REGU #### [facility] [address] [place] [address] Dr. Sara Rey IG # 0.02 10e3/ul Normal 0.00-0.03 [facility] Comment on above: Performed By: #### P REGU #### [facility] [address] [place] [address] Dr. Sara Rey IG % 0.2 % Normal 0.0-0.5 [facility] Comment on above: Performed By: #### P REGU #### [facility] [address] [place] [address] Dr. Sara Rey LYMPH # 2.3 103/ul Normal 1.2-3.8 [facility] Comment on above: Performed By: #### P REGU #### [facility] [address] [place] [address] Dr. Sara Rey Lymphocytes/100 WBC (Bld) 27.5 % Normal 20.5-60.0 [facility] Comment on above: Performed By: #### P REGU #### [facility] [address] [place] [address] Dr. Sara Rey MANUAL DIFF REQ NO Normal [facility] Comment on above: Performed By: #### P REGU #### [facility] [address] [place] [address] Dr. Sara Rey MCH (RBC) [Entitic mass] 32.8 pg Normal 26.7-34.0 [facility] Comment on above: Performed By: #### P REGU #### [facility] [address] [place] [address] Dr. Sara Rey MCHC (RBC) [Mass/Vol] 36.0 g/dL Critically high 29.9-35.2 [facility] Comment on above: Performed By: #### P REGU #### [facility] [address] [place] [address] Dr. Sara Rey MCV (RBC) [Entitic vol] 91.1 fL Normal 81.0-99.0 [facility] Comment on above: Performed By: #### P REGU #### [facility] [address] [place] [address] Dr. Sara Rey MONO # 0.5 103/ul Normal 0.3-0.8 [facility] Comment on above: Performed By: #### P REGU #### [facility] [address] [place] [address] Dr. Sara Rey Monocytes/100 WBC (Bld) 6.0 % Normal 1.7-12.0 [facility] Comment on above: Performed By: #### P REGU #### [facility] [address] [address] [address] Sara Rey NEUT # 5.5 103/ul Normal 1.4-6.5 [facility] Comment on above: Performed By: #### P REGU #### [facility] [address] [place] [address] Dr. Sara Rey Neutrophils/100 WBC (Bld) 64.3 % Normal 43.0-75.0 [facility] Comment on above: Performed By: #### P REGU #### [facility] [address] [place] [address] Dr. Sara Rey Platelet mean volume (Bld) [Entitic vol] 11.0 fL Normal 9.5-13.5 [facility] Comment on above: Performed By: #### P REGU #### [facility] [address] [place] [address] Dr. Sara Rey PLT 262 103/ul Normal 150-450 [facility] Comment on above: Performed By: #### P REGU #### [facility] [address] [place] [address] Dr. Sara Rey RBC 4.03 106/ul Critically low 4.20-5.40 [facility] Comment on above: Performed By: #### P REGU #### [facility] [address] [place] [address] Dr. Sara Rey WBC 8.5 103/ul Normal 4.0-11.0 [facility] Comment on above: Performed By: #### P REGU #### [facility] [address] [place] [address] ABD/PELVIS WO CONon 10-07 CT ABD/PELVIS WO CON EXAMINATION:CT ABD/ PELVIS WO CON INDICATION:CALCULUS OF KIDNEY COMPARISON:08/19/2022. Pelvic ultrasound from the same day. TECHNIQUE:Multiple thin section transaxial slices were acquired through the abdomen and pelvis without intravenous contrast. Coronal and sagittal reconstructed images were reviewed. Oral contrastWas not administered. FINDINGS: LOWER CHEST: Atelectatic changes are present in the left lung base. LIVER: The liver is unremarkable. GALLBLADDER AND BILIARY SYSTEM: No obvious ductal dilation. The gallbladder surgically absent. SPLEEN: The spleen is unremarkable. PANCREAS: The pancreas is unremarkable. ADRENAL GLANDS: The adrenal glands are unremarkable. KIDNEYS AND URETERS: There is no hydronephrosis of the kidneys.No obstructing urologic calcifications are present. VASCULATURE: Vascularity is unremarkable. PERITONEUM/RETROPERITONEUM : There is a trace amount free fluid in the pelvis. No fluid collections are present to suggest abscess. LYMPH NODES: No suspicious lymphadenopathy. GASTROINTESTINAL TRACT: The bowel is normal in caliber.No acute inflammatory changes are associated with the bowel.The appendix is not well delineated and may be absent or diminutive. BLADDER: The urinary bladder is unremarkable. REPRODUCTIVE SYSTEM: Reproductive system is unremarkable. BODY WALL: There are postsurgical changes along the anterior abdominal wall from recent right ovarian cyst removal. BONES: Osseous structures are unremarkable. IMPRESSION: 1. No acute process in the abdomen or pelvis. No obstructive uropathy. Electronically authenticated by: JG AUGUSTIN Date: 2022-10-07 20:[address] [facility] ER URINE PROFILEon 3 Bilirubin Ql (U) Negative Normal NEGATIVE [facility] Comment on above: Performed By: #### B MP, LIVER, PREGQNT #### [facility] [address] [place] [address] Dr. Sara Rey Clarity (U) CLEAR Normal CLEAR [facility] Comment on above: Performed By: #### B MP, LIVER, PREGQNT #### [facility] [address] [address] [address] Sara Rey Color (U) LT. YELLOW Normal YELLOW [facility] Comment on above: Performed By: #### B MP, LIVER, PREGQNT #### [facility] [address] [address] [address] Sara Rey ERUAHD A micrscopic examina tion will be performed if indicated. Normal [facility] Comment on above: Performed By: #### B MP, LIVER, PREGQNT #### [facility] [address] [address] [address] Sara Rey Glucose Ql (U) Negative Normal NEGATIVE [facility] Comment on above: Performed By: #### B MP, LIVER, PREGQNT #### [facility] [address] [place] [address] Dr. Sara Rey Hemoglobin Ql (U) LARGE Abnormal NEGATIVE [facility] Comment on above: Performed By: #### B MP, LIVER, PREGQNT #### [facility] [address] [address] [address] Sara Rey Ketones Ql (U) Negative Normal NEGATIVE [facility] Comment on above: Performed By: #### B MP, LIVER, PREGQNT #### [facility] [address] [address] [address] Sara Rey LEUKOCYTES TRACE Abnormal NEGATIVE [facility] Comment on above: Performed By: #### B MP, LIVER, PREGQNT #### [facility] [address] [place] [address] Dr. Sara Rey Nitrite Ql (U) Negative Normal NEGATIVE [facility] Comment on above: Performed By: #### B MP, LIVER, PREGQNT #### [facility] [address] [place] [address] Dr. Sara Rey pH (U) 8.0 [pH] Normal 5-9 [facility] Comment on above: Performed By: #### B MP, LIVER, PREGQNT #### [facility] [address] [place] [address] Dr. Sara Rey Protein (U) [Mass/Vol] 30 mg/dL Abnormal NEGAT MARVIN/ TRACE [facility] Comment on above: Performed By: #### B MP, LIVER, PREGQNT #### [facility] [address] [place] [address] Dr. Sara Rey SPEC GRAVITY 1.015 Normal 1.005-<=1. [address] [facility] Comment on above: Performed By: #### B MP, LIVER, PREGQNT #### [facility] [address] [place] [address] Dr. Sara Rey UR MICRO IND INDICATED Normal [facility] Comment on above: Performed By: #### B MP, LIVER, PREGQNT #### [facility] [address] [place] [address] Dr. Sara Rey Urobilinogen Qn (U) 1.0 {Jose'U}/dL Normal 0.2 - 1. 0 [facility] Comment on above: Performed By: #### B MP, LIVER, PREGQNT #### [facility] [address] [place] [address] Dr. Sara Rey URon 10-07-2022 , QUAL Negative Normal NEGATIVE [facility] Comment on above: Performed By: #### B MP, LIVER, PREGQNT #### [facility] [address] [place] [address] Dr. Sara Rey PROF CHEM 8 (BAS METB)on Anion gap [Moles/Vol] 13.0 mmol/L Normal [facility] Comment on above: Performed By: #### P REGU #### [facility] [address] [place] [address] Dr. Sara Rey Calcium [Mass/Vol] 9.1 mg/dL Normal 8.5-10.1 [facility] Comment on above: Performed By: #### P REGU #### [facility] [address] [place] [address] Dr. Sara Rey Chloride [Moles/Vol] 106 mmol/L Normal 98-[address] [facility] Comment on above: Performed By: #### P REGU #### [facility] [address] [place] [address] Dr. Sara Rey CO2 [Moles/Vol] 26.3 mmol/L Normal 21.0-32.[address] [facility] Comment on above: Performed By: #### P REGU #### [facility] [address] [place] [address] Dr. Sara Rey Creatinine [Mass/Vol] 0.68 mg/dL Normal 0.55-1.02 [facility] Comment on above: Performed By: #### P REGU #### [facility] [address] [place] [address] Dr. Sara Rey EGFR-AF BOLIVIAN >60 Normal >=60 [facility] Comment on above: Performed By: #### P REGU #### [facility] [address] [address] [address] Sara Rey EGFR-NON AF BOLIVIAN >60 Normal >=60 [facility] Comment on above: Performed By: #### P REGU #### [facility] [address] [address] [address] Sara Rey Glucose [Mass/Vol] 127 mg/dL Critically high 74-106 [facility] Comment on above: Performed By: #### P REGU #### [facility] [address] [address] [address] Sara Rey Potassium [Moles/Vol] 3.8 mmol/L Normal 3.5-5.1 [facility] Comment on above: Performed By: #### P REGU #### [facility] [address] [address] [address] Sara Rey Sodium [Moles/Vol] 141 mmol/L Normal 136-145 [facility] Comment on above: Performed By: #### P REGU #### [facility] [address] [address] [address] Sara Rey Urea nitrogen [Mass/Vol] 12.0 mg/dL Normal 7.0-18.0 [facility] Comment on above: Performed By: #### P REGU #### [facility] [address] [address] [address] Sara Rey Urea nitrogen/Creatinine [Mass ratio] 17.6 mg/mg Normal [facility] Comment on above: Performed By: #### P REGU #### [facility] [address] [address] [address] Sara Rey URINE MICROSCOPIC ONLYon BACTERIA TRACE Abnormal NONE SEEN [facility] Comment on above: Performed By: #### B MP, LIVER, PREGQNT #### [facility] [address] [address] [address] Sara Rey Bacteria identified Cx Nom (U) INDICATED Normal [facility] Comment on above: Performed By: #### B MP, LIVER, PREGQNT #### [facility] [address] [address] [address] Sara Rey CAST NONE SEEN Normal NONE SEEN [facility] Comment on above: Performed By: #### B MP, LIVER, PREGQNT #### [facility] Laboratory [address] [address] [address] Sara Rey Crystals LM Nom (Urine sed) NONE SEEN Normal NONE SEEN [facility] Comment on above: Performed By: #### B MP, LIVER, PREGQNT #### [facility] [address] [address] [address] Sara Rey Epithelial cells LM Ql (Urine sed) MODERATE Abnormal NONE SEEN /RARE [facility] Comment on above: Performed By: #### B MP, LIVER, PREGQNT #### [facility] [address] [place] [address] Dr. Sara Rey MUCOUS TRACE Abnormal NONE SEEN [facility] Comment on above: Performed By: #### B MP, LIVER, PREGQNT #### [facility] [address] [address] [address] Sara Rey RBC (U) [#/Vol] /uL Abnormal 0-[address] [facility] Comment on above: Performed By: #### B MP, LIVER, PREGQNT #### [facility] [address] [place] [address] Dr. Sara Rey WBC 5-10 Abnormal NONE SEEN [facility] Comment on above: Performed By: #### B MP, LIVER, PREGQNT #### [facility] [address] [place] [address] Dr. Sara Rey US PELVIS TRANSVAGon 023 US PELVIS TRANSVAG ULTRASOUND OF THE PE LVIS: HISTORY: Pelvic pain in a 26 year old G1 Ab`1 female with right ovarian cyst removed. RLQ pain and vaginal bleeding. COMPARISON: None. TECHNIQUE: Multiple sonographic images are performed of the pelvis using grayscale and color Doppler with transvaginal probes. FINDINGS: Uterus: The uterus measures 7.5 x 2.8 x 3.4 cm. Endometrium: 2.7 mm. Ovaries: Right ovary: The right ovary measures 3.7 x 1.3 x 2.3 cm. Arterial and venous blood flow demonstrated bilaterally. RI: 0.54 Left ovary: The left ovary measures 3.0 x 2.8 x 2.5 cm. Arterial and venous blood flow demonstrated bilaterally. RI: 0.60 Free fluid: None. IMPRESSION: Unremarkable ultrasound of the pelvis. Electronically authenticated by: JANNET BOWEN Date: 2022-10-07 19:[address] [facility] ER URINE PROFILEon 2 Bilirubin Ql (U) Negative Normal NEGATIVE [facility] Comment on above: Performed By: #### C YTO #### [facility] [address] [place] [address] Dr. Sara Rey Clarity (U) CLEAR Normal CLEAR [facility] Comment on above: Performed By: #### C YTO #### [facility] [address] [place] [address] Dr. Sara Rey Color (U) LT. YELLOW Normal YELLOW [facility] Comment on above: Performed By: #### C YTO #### [facility] [address] [place] [address] Dr. Sara Rey ERUAHD A micrscopic examina tion will be performed if indicated. Normal [facility] Comment on above: Performed By: #### C YTO #### [facility] [address] [place] [address] Dr. Sara Rey Glucose Ql (U) Negative Normal NEGATIVE [facility] Comment on above: Performed By: #### C YTO #### [facility] [address] [place] [address] Dr. Sara Rey Hemoglobin Ql (U) TRACE-LYSED Abnormal NEGATIVE [facility] Comment on above: Performed By: #### C YTO #### [facility] [address] [place] [address] Dr. Sara Rey Ketones Ql (U) Negative Normal NEGATIVE [facility] Comment on above: Performed By: #### C YTO #### [facility] [address] [place] [address] Dr. Sara Rey LEUKOCYTES LARGE Abnormal NEGATIVE [facility] Comment on above: Performed By: #### C YTO #### [facility] [address] [place] [address] Dr. Sara Rey Nitrite Ql (U) Negative Normal NEGATIVE [facility] Comment on above: Performed By: #### C YTO #### [facility] [address] [place] [address] Dr. Sara Rey pH (U) 7.5 [pH] Normal 5-[address] [facility] Comment on above: Performed By: #### C YTO #### [facility] [address] [place] [address] Dr. Sara Rey SPEC GRAVITY 1.010 Normal 1.005-<=1. [address] [facility] Comment on above: Performed By: #### C YTO #### [facility] [address] [place] [address] Dr. Sara Rey UA PROTEIN Negative Normal NEGATIVE/ TRACE [facility] Comment on above: Performed By: #### C YTO #### [facility] [address] [place] [address] Dr. Sara Rey UR MICRO IND INDICATED Normal [facility] Comment on above: Performed By: #### C YTO #### [facility] [address] [place] [address] Dr. Sara Rey Urobilinogen Qn (U) 1.0 {Jose'U}/dL Normal 0.2 - 1. 0 [facility] Comment on above: Performed By: #### C YTO #### [facility] [address] [place] [address] Dr. Sara Rey URINE MICROSCOPIC ONLYon BACTERIA NONE SEEN Normal NONE SEEN [facility] Comment on above: Performed By: #### C YTO #### [facility] [address] [place] [address] Dr. Sara Rey Bacteria identified Cx Nom (U) NOT INDICATED Normal [facility] Comment on above: Performed By: #### C YTO #### [facility] [address] [place] [address] Dr. Sara Rey CAST NONE SEEN Normal NONE SEEN [facility] Comment on above: Performed By: #### C YTO #### [facility] [address] [address] [address] Sara Rey Crystals LM Nom (Urine sed) NONE SEEN Normal NONE SEEN [facility] Comment on above: Performed By: #### C YTO #### [facility] [address] [place] [address] Dr. Sara Rey Epithelial cells LM Ql (Urine sed) MODERATE Abnormal NONE SEEN /RARE [facility] Comment on above: Performed By: #### C YTO #### [facility] [address] [place] [address] Dr. Sara Rey MUCOUS NONE SEEN Normal NONE SEEN [facility] Comment on above: Performed By: #### C YTO #### [facility] [address] [place] [address] Dr. Sara Rey RBC 0-2 Normal 0-[address] [facility] Comment on above: Performed By: #### C YTO #### [facility] [address] [place] [address] Dr. Sara Rey WBC 5-10 Abnormal NONE SEEN [facility] Comment on above: Performed By: #### C YTO #### [facility] [address] [place] [address] Dr. Sara Rey CULTURE WOUNDon 09-11-2022 CULTURE WOUND Isolate 1 Enterobacter aerogenes Heavy growth of Isolate 2 Enterococcus faecalis Moderate growth of ORGANISM 1 Enterobacter aerogenes ANTIBIOTIC M.I.C RX STATUS Piperacillin/Tazobactam <=4 S F Cefazolin <=4 R F Ceftazidime <=1 S F Ceftriaxone <=1 S F Ertapenem <=0.5 S F Imipenem <=0.25 S F Amikacin <=2 S F Gentamicin <=1 S F Tobramycin <=1 S F Ciprofloxacin <=0.25 S F Levofloxacin <=0.12 S F Trimethoprim/Sulfamethoxaz ole <=20 S F ORGANISM 2 Enterococcus faecalis ANTIBIOTIC M.I.C RX STATUS Beta-Lactamase Neg NEG F Benzylpenicillin 2 S F Ampicillin <=2 S F Gentamicin High Level (synergy) SYN-S S F Streptomycin High Level (synergy) SYN-S S F Quinupristin/Dalfopristin >=16 R F Linezolid 1 S F Vancomycin 1 S F Normal [facility] Comment on above: Performed By: #### B MP, LIVER, PREGQNT #### [facility] [address] [place] [address] Dr. Sara Rey CYTOLOGYon 08-29-2022 SENT TO REF LAB 09/08/2022 Normal [facility] Comment on above: Performed By: #### C YTO #### [facility] [address] [place] [address] Dr. Sara Rey CBC AUTO DIFFon 08-28-2022 BASO # 0.0 103/ul Normal 0.0-0.1 [facility] Comment on above: Performed By: #### B MP, LIVER, PREGQNT #### [facility] [address] [place] [address] Dr. Sara Rey Basophils/100 WBC (Bld) 0.6 % Normal 0.2-2.0 [facility] Comment on above: Performed By: #### B MP, LIVER, PREGQNT #### [facility] [address] [place] [address] Dr. Sara Rey EO # 0.1 103/ul Normal 0.0-0.7 [facility] Comment on above: Performed By: #### B MP, LIVER, PREGQNT #### [facility] [address] [place] [address] Dr. Sara Rey Eosinophils/100 WBC (Bld) 1.0 % Normal 0.9-7.0 [facility] Comment on above: Performed By: #### B MP, LIVER, PREGQNT #### [facility] [address] [place] [address] Dr. Sara Rey Erythrocyte distribution width (RBC) [Ratio] 12.1 % Normal 11.0-15.0 [facility] Comment on above: Performed By: #### B MP, LIVER, PREGQNT #### [facility] [address] [place] [address] Dr. Sara Rey Hematocrit (Bld) [Volume fraction] 40.9 % Normal 36.0-48.0 [facility] Comment on above: Performed By: #### B MP, LIVER, PREGQNT #### [facility] [address] [place] [address] Dr. Sara Rey Hemoglobin (Bld) [Mass/Vol] 14.3 g/dL Normal 12.0-16.[address] [facility] Comment on above: Performed By: #### B MP, LIVER, PREGQNT #### [facility] [address] [place] [address] Dr. Sara Rey IG # 0.01 10e3/ul Normal 0.00-0.[address] [facility] Comment on above: Performed By: #### B MP, LIVER, PREGQNT #### [facility] [address] [place] [address] Dr. Sara Rey IG % 0.1 % Normal 0.0-0.5 [facility] Comment on above: Performed By: #### B MP, LIVER, PREGQNT #### [facility] [address] [place] [address] Dr. Sara Rey LYMPH # 2.0 103/ul Normal 1.2-3.[address] [facility] Comment on above: Performed By: #### B MP, LIVER, PREGQNT #### [facility] [address] [place] [address] Dr. Sara Rey Lymphocytes/100 WBC (Bld) 30.1 % Normal 20.5-60.[address] [facility] Comment on above: Performed By: #### B MP, LIVER, PREGQNT #### [facility] [address] [place] [address] Dr. Sara Rey MANUAL DIFF REQ NO Normal [facility] Comment on above: Performed By: #### B MP, LIVER, PREGQNT #### [facility] [address] [place] [address] Dr. Sara Rey MCH (RBC) [Entitic mass] 31.9 pg Normal 26.7-34.[address] [facility] Comment on above: Performed By: #### B MP, LIVER, PREGQNT #### [facility] [address] [place] [address] Dr. Sara Rey MCHC (RBC) [Mass/Vol] 35.0 g/dL Normal 29.9-35.2 [facility] Comment on above: Performed By: #### B MP, LIVER, PREGQNT #### [facility] [address] [place] [address] Dr. Sara Rey MCV (RBC) [Entitic vol] 91.3 fL Normal 81.0-99.0 [facility] Comment on above: Performed By: #### B MP, LIVER, PREGQNT #### [facility] [address] [place] [address] Dr. Sara Rey MONO # 0.6 103/ul Normal 0.3-0.8 [facility] Comment on above: Performed By: #### B MP, LIVER, PREGQNT #### [facility] [address] [place] [address] Dr. Sara Rey Monocytes/100 WBC (Bld) 8.2 % Normal 1.7-12.0 [facility] Comment on above: Performed By: #### B MP, LIVER, PREGQNT #### [facility] [address] [place] [address] Dr. Sara Rey NEUT # 4.0 103/ul Normal 1.4-6.5 [facility] Comment on above: Performed By: #### B MP, LIVER, PREGQNT #### [facility] [address] [place] [address] Dr. Sara Rey Neutrophils/100 WBC (Bld) 60.0 % Normal 43.0-75.0 [facility] Comment on above: Performed By: #### B MP, LIVER, PREGQNT #### [facility] [address] [place] [address] Dr. Sara Rey Platelet mean volume (Bld) [Entitic vol] 10.8 fL Normal 9.5-13.5 [facility] Comment on above: Performed By: #### B MP, LIVER, PREGQNT #### [facility] [address] [place] [address] Dr. Sara Rey PLT 268 103/ul Normal 150-[address] [facility] Comment on above: Performed By: #### B MP, LIVER, PREGQNT #### [facility] [address] [address] [address] Sara Rey RBC 4.48 106/ul Normal 4.20-5.40 [facility] Comment on above: Performed By: #### B MP, LIVER, PREGQNT #### [facility] [address] [address] [address] Sara Rey WBC 6.7 103/ul Normal 4.0-11.0 [facility] Comment on above: Performed By: #### B MP, LIVER, PREGQNT #### [facility] [address] [place] [address] Dr. Sara Rey CULTURE URINEon 08-28-2022 CULTURE URINE Culture Observations : NO GROWTH. Normal [facility] Comment on above: Performed By: #### B MP, LIVER, PREGQNT #### [facility] [address] [place] [address] Dr. Sara Rey Covid-19 PCR ([facility])on SARS-CoV-2 (COVID-19) RNA MARCELLA+probe Ql (Unsp spec) Not detected Normal NOT DETECTED [facility] Comment on above: Result Comment: When diagnostic testing is negative, the possibility of a false negative should be considered in the context of a patient's recent exposures and the presence of clinical signs and symptoms consistent with SARS-CoV-2. This test is not yet approved or cleared by the [place] FDA. When there are no FDA-approved or cleared tests available, and other criteria are met, FDA can make tests available under an emergency access mechanism called an Emergency Use Authorization (EUA). The EUA for this test is supported by the [employer] Consultant of Health and Human Service's declaration that circumstances exist to justify the emergency use of in vitro diagnostics for the detection and/or diagnosis of the virus that causes COVID-19. This EUA will remain in effect for the duration of the COVID-19 declaration justifying emergency of IVDs, unless it is terminated or revoked by the FDA (after which the test may no longer be used). Performed By: #### E RAYMOND PORTER #### [facility] [address] [address] [address] Sara GRANADOS URINE PROFILEon 2 Bilirubin Ql (U) SMALL Abnormal NEGATIVE [facility] Comment on above: Performed By: #### C BC #### [facility] [address] [place] [address] Dr. Sara Rey Clarity (U) CLEAR Normal CLEAR [facility] Comment on above: Performed By: #### C BC #### [facility] [address] [place] [address] Dr. Sara Rey Color (U) YELLOW Normal YELLOW [facility] Comment on above: Performed By: #### C BC #### [facility] [address] [place] [address] Dr. Sara ROSAS A micrscopic examina tion will be performed if indicated. Normal [facility] Comment on above: Performed By: #### C BC #### [facility] [address] [place] [address] Dr. Sara Rey Glucose Ql (U) Negative Normal NEGATIVE [facility] Comment on above: Performed By: #### C BC #### [facility] [address] [place] [address] Dr. Sara Rey Hemoglobin Ql (U) LARGE Abnormal NEGATIVE [facility] Comment on above: Performed By: #### C BC #### [facility] [address] [place] [address] Dr. Sara Rey Ketones Ql (U) Negative Normal NEGATIVE [facility] Comment on above: Performed By: #### C BC #### [facility] [address] [place] [address] Dr. Sara Rey LEUKOCYTES TRACE Abnormal NEGATIVE [facility] Comment on above: Performed By: #### C BC #### [facility] [address] [place] [address] Dr. Sara Rey Nitrite Ql (U) Negative Normal NEGATIVE [facility] Comment on above: Performed By: #### C BC #### [facility] [address] [place] [address] Dr. Sara Rey pH (U) 5.5 [pH] Normal 5-9 [facility] Comment on above: Performed By: #### C BC #### [facility] [address] [place] [address] Dr. Sara Rey SPEC GRAVITY >=1.030 Abnormal 1.005-<=1. 025 [facility] Comment on above: Performed By: #### C BC #### [facility] [address] [place] [address] Dr. Sara Rey UA PROTEIN TRACE Normal NEGATIVE/ TRACE [facility] Comment on above: Performed By: #### C BC #### [facility] [address] [place] [address] Dr. Sara Rey UR MICRO IND INDICATED Normal [facility] Comment on above: Performed By: #### C BC #### [facility] [address] [place] [address] Dr. Sara Rey Urobilinogen Qn (U) 1.0 {Jose'U}/dL Normal 0.2 - 1. 0 [facility] Comment on above: Performed By: #### C BC #### [facility] [address] [place] [address] Dr. Sara Rey PREG HCG QUALon 08-28-2022 , QUAL Negative Normal NEGATIVE [facility] Comment on above: Performed By: #### D SDOALC #### [facility] [address] [place] [address] Dr. Sara Rey PROF CHEM 8 (BAS METB)on Anion gap [Moles/Vol] 14.1 mmol/L Normal [facility] Comment on above: Performed By: #### P REGU #### [facility] [address] [place] [address] Dr. Sara Rey Calcium [Mass/Vol] 9.6 mg/dL Normal 8.5-10.1 [facility] Comment on above: Performed By: #### P REGU #### [facility] [address] [place] [address] Dr. Sara Rey Chloride [Moles/Vol] 104 mmol/L Normal 98-107 [facility] Comment on above: Performed By: #### P REGU #### [facility] [address] [place] [address] Dr. aSra Rey CO2 [Moles/Vol] 23.8 mmol/L Normal 21.0-32.0 [facility] Comment on above: Performed By: #### P REGU #### [facility] [address] [place] [address] Dr. Sara Rey Creatinine [Mass/Vol] 0.58 mg/dL Normal 0.55-1.02 [facility] Comment on above: Performed By: #### P REGU #### [facility] [address] [place] [address] Dr. Sara Rey EGFR-AF BOLIVIAN >60 Normal >=60 [facility] Comment on above: Performed By: #### P REGU #### [facility] [address] [place] [address] Dr. Sara Rey EGFR-NON AF BOLIVIAN >60 Normal >=60 [facility] Comment on above: Performed By: #### P REGU #### [facility] [address] [place] [address] Dr. Sara Rey Glucose [Mass/Vol] 107 mg/dL Critically high 74-106 T [facility] Comment on above: Performed By: #### P REGU #### [facility] [address] [place] [address] Dr. Sara Rey Potassium [Moles/Vol] 3.9 mmol/L Normal 3.5-5.[address] [facility] Comment on above: Performed By: #### P REGU #### [facility] [address] [place] [address] Dr. Sara Rey Sodium [Moles/Vol] 138 mmol/L Normal 136-[address] [facility] Comment on above: Performed By: #### P REGU #### [facility] [address] [place] [address] Dr. Sara Rey Urea nitrogen [Mass/Vol] 12.0 mg/dL Normal 7.0-18.0 [facility] Comment on above: Performed By: #### P REGU #### [facility] [address] [place] [address] Dr. Sara Rey Urea nitrogen/Creatinine [Mass ratio] 20.7 mg/mg Normal [facility] Comment on above: Performed By: #### P REGU #### [facility] [address] [place] [address] Dr. Sara Rey URINE MICROSCOPIC ONLYon BACTERIA NONE SEEN Normal NONE SEEN [facility] Comment on above: Performed By: #### C BC #### [facility] [address] [place] [address] Dr. Sara Rey Bacteria identified Cx Nom (U) INDICATED Normal [facility] Comment on above: Performed By: #### C BC #### [facility] [address] [place] [address] Dr. Sara Rey CAST NONE SEEN Normal NONE SEEN [facility] Comment on above: Performed By: #### C BC #### [facility] [address] [place] [address] Dr. Sara Rey Crystals LM Nom (Urine sed) NONE SEEN Normal NONE SEEN [facility] Comment on above: Performed By: #### C BC #### [facility] [address] [place] [address] Dr. Sara Rey Epithelial cells LM Ql (Urine sed) MODERATE Abnormal NONE SEEN /RARE [facility] Comment on above: Performed By: #### C BC #### [facility] [address] [place] [address] Dr. Sara Rey MUCOUS TRACE Abnormal NONE SEEN [facility] Comment on above: Performed By: #### C BC #### [facility] [address] [place] [address] Dr. Sara Rey RBC 10-20 Abnormal 0-[address] [facility] Comment on above: Performed By: #### C BC #### [facility] [address] [place] [address] Dr. Sara Rey WBC 5-10 Abnormal NONE SEEN [facility] Comment on above: Performed By: #### C BC #### [facility] [address] [place] [address] Dr. Sara Rey US PELVIS TRANSVAGon US PELVIS TRANSVAG EXAMINATION: US PELV IS TRANSVAG HISTORY: Ruptured cyst of right ovary COMPARISON: 08/19/2022 FINDINGS: Transabdominal images The uterus is normal in size, contour and echotexture measuring 6.8 x 4.2 x 3.1 cm. No focal myometrial mass. The endometrium measures 6 mm, normal The right ovary is enlarged measuring 5.7 x 6.1 x 5.0 cm. Complex cystic area measuring 4.7 x 5.0 x 4.2 cm with multiple septations. No internal color flow The left ovary measures 2.9 x 2.7 x 2.1 cm. Normal color and Doppler flow IMPRESSION: 5 cm complex/septated right ovarian cyst, slightly increased in size from the prior exam Electronically authenticated by: PJ QUINONES Date: 2022-08-28 18:[address] [facility] CBC AUTO DIFFon 08-19-2022 BASO # 0.0 103/ul Normal 0.0-0.1 [facility] Comment on above: Performed By: #### RAYMOND PACHECO #### [facility] [address] [place] [address] Dr. Sara Rey Basophils/100 WBC (Bld) 0.6 % Normal 0.2-2.0 [facility] Comment on above: Performed By: #### RAYMOND PACHECO #### [facility] [address] [place] [address] Dr. Sara Rey EO # 0.1 103/ul Normal 0.0-0.7 [facility] Comment on above: Performed By: #### RAYMOND PACHECO #### [facility] [address] [place] [address] Dr. Sara Rey Eosinophils/100 WBC (Bld) 1.7 % Normal 0.9-7.0 [facility] Comment on above: Performed By: #### RAYMOND PACHECO #### [facility] [address] [place] [address] Dr. Sara Rey Erythrocyte distribution width (RBC) [Ratio] 12.3 % Normal 11.0-15.0 [facility] Comment on above: Performed By: #### RAYMOND PACHECO #### [facility] [address] [place], [place] [address] Dr. Sara Rey Hematocrit (Bld) [Volume fraction] 40.8 % Normal 36.0-48.[address] [facility] Comment on above: Performed By: #### INOCENTE PACHECORO #### [facility] [address] [place] [address] Dr. Sara Rey Hemoglobin (Bld) [Mass/Vol] 14.4 g/dL Normal 12.0-16.[address] [facility] Comment on above: Performed By: #### INOCENTE PACHECORO #### [facility] [address] [place] [address] Dr. Sara Rey IG # 0.02 10e3/ul Normal 0.00-0.03 [facility] Comment on above: Performed By: #### INOCENTE PACHECORO #### [facility] [address] [place] [address] Dr. Sara Rey IG % 0.3 % Normal 0.0-0.5 [facility] Comment on above: Performed By: #### INOCENTE PACHECORO #### [facility] [address] [place] [address] Dr. Sara Rey LYMPH # 2.2 103/ul Normal 1.2-3.[address] [facility] Comment on above: Performed By: #### INOCENTE PACHECORO #### [facility] [address] [place] [address] Dr. Sara Rey Lymphocytes/100 WBC (Bld) 31.1 % Normal 20.5-60.[address] [facility] Comment on above: Performed By: #### INOCENTE PACHECORO #### [facility] [address] [place] [address] Dr. Sara Rey MANUAL DIFF REQ NO Normal [facility] Comment on above: Performed By: #### E RUR, UMICRO #### [facility] [address] [place] [address] Dr. Sara Rey MCH (RBC) [Entitic mass] 31.9 pg Normal 26.7-34.0 [facility] Comment on above: Performed By: #### E CHARLOTTE UMICRO #### [facility] [address] [place] [address] Dr. Sara Rey MCHC (RBC) [Mass/Vol] 35.3 g/dL Critically high 29.9-35.2 [facility] Comment on above: Performed By: #### E CHARLOTTE UMICRO #### [facility] [address] [place] [address] Dr. Sara Rey MCV (RBC) [Entitic vol] 90.3 fL Normal 81.0-99.0 [facility] Comment on above: Performed By: #### Monica PORTER UMICRO #### [facility] [address] [place] [address] Dr. Sara Rey MONO # 0.7 103/ul Normal 0.3-0.8 [facility] Comment on above: Performed By: #### Monica PORTER UMICRO #### [facility] [address] [place] [address] Dr. Sara Rey Monocytes/100 WBC (Bld) 9.2 % Normal 1.7-12.0 [facility] Comment on above: Performed By: #### Monica PORTER UMICRO #### [facility] [address] [place] [address] Dr. Sara Rey NEUT # 4.0 103/ul Normal 1.4-6.5 [facility] Comment on above: Performed By: #### Monica PORTER UMICRO #### [facility] [address] [place] [address] Dr. Sara Rey Neutrophils/100 WBC (Bld) 57.1 % Normal 43.0-75.0 [facility] Comment on above: Performed By: #### Monica PORTER UMICRO #### [facility] [address] [place] [address] Dr. Sara Rey Platelet mean volume (Bld) [Entitic vol] 10.4 fL Normal 9.5-13.5 [facility] Comment on above: Performed By: #### RAYMOND PACHECO #### [facility] [address] [address] [address] Sara Rey PLT 258 103/ul Normal 150-[address] [facility] Comment on above: Performed By: #### INOCENTE PACHECORO #### [facility] [address] [address] [address] Sara Rey RBC 4.52 106/ul Normal 4.20-5.40 [facility] Comment on above: Performed By: #### INOCENTE PACHECORO #### [facility] [address] [place] [address] Dr. Sara Rey WBC 7.0 103/ul Normal 4.0-11.0 [facility] Comment on above: Performed By: #### RAYMOND PACHECO #### [facility] [address] [place] [address] ABD/PELVIS WO CONon 08-19 CT ABD/PELVIS WO CON EXAMINATION: CT ABD /PELVIS WO CON HISTORY: Pain ; acute pelvic and vaginal pain COMPARISON: Ultrasound pelvis 08/19/2022 TECHNIQUE: Axial, Coronal, and Sagittal images were obtained without and/or with IV contrast as indicated by examination type. Dose reduction techniques were achieved by using automated exposure control and/or adjustment of mA and/or kV according to patient size and/or use of iterative reconstruction technique. FINDINGS: LUNG BASES: No visible pulmonary or pleural disease. LIVER: No enlargement, atrophy, suspicious density, or significant focal lesion. BILIARY: Cholecystectomy. PANCREAS: No lesion, fluid collection, or abnormal duct dilatation. SPLEEN: Slightly prominent, but otherwise unremarkable. ADRENALS: No mass or enlargement. KIDNEYS: No mass, obstruction, or calcification. BOWEL/MESENTERY: No visible mass, obstruction, or bowel wall thickening. Prior appendectomy. AORTA/VASCULAR: No aneurysm or dissection. RETROPERITONEUM: No mass or adenopathy. LYMPH NODES: No adenopathy. URINARY BLADDER: No visible focal wall thickening, lesion, or calculus. PELVIC ORGANS: 5.2 cm fluid density cyst within lower right pelvis compatible with ovarian cyst seen on recent ultrasound study. No visible mass. Pelvic organs appropriate for patient age. ABDOMINAL WALL: No mass or hernia. BONES: No bony lesion or fracture. OTHER: Negative. IMPRESSION: 1. Lower right pelvis 5.2 cm ovarian cyst, also seen on today's ultrasound study. Consider follow-up ultrasound evaluation in 6 weeks to document regression. 2. Unremarkable bowel. Prior appendectomy. No other acute or suspicious findings to account for patient's symptoms. Electronically authenticated by: SANDRITA OROPEZA Date: 2022-08-19 15:[address] [facility] CULTURE URINEon 08-19-2022 CULTURE URINE Culture Observations : LIGHT GROWTH OF MIXED GENITAL ANA. NO POTENTIAL PATHOGENS SEEN. Normal [facility] Comment on above: Performed By: #### B MP, LIVER, PREGQNT #### [facility] [address] [place] [address] Dr. Sara Rey ER URINE PROFILEon 2 Bilirubin Ql (U) MODERATE Abnormal NEGATIVE [facility] Comment on above: Performed By: #### Monica PORTER UMICRO #### [facility] [address] [place] [address] Dr. Sara Rey Clarity (U) CLEAR Normal CLEAR [facility] Comment on above: Performed By: #### Monica PORTER UMICRO #### [facility] [address] [place] [address] Dr. Sara Rey Color (U) DK. YELLOW Normal YELLOW [facility] Comment on above: Performed By: #### Monica PORTER UMICRO #### [facility] [address] [place] [address] Dr. Sara Rey ERUAHD A micrscopic examina tion will be performed if indicated. Normal [facility] Comment on above: Performed By: #### Monica PORTER UMICRO #### [facility] [address] [place] [address] Dr. Sara Rey Glucose Ql (U) Negative Normal NEGATIVE [facility] Comment on above: Performed By: #### Monica PORTER UMICRO #### [facility] [address] [place] [address] Dr. Sara Rey Hemoglobin Ql (U) LARGE Abnormal NEGATIVE [facility] Comment on above: Performed By: #### Monica PORTER UMICRO #### [facility] [address] [place] [address] Dr. Sara Rey Ketones Ql (U) TRACE Abnormal NEGATIVE [facility] Comment on above: Performed By: #### Monica PORTER UMICRO #### [facility] [address] [place] [address] Dr. Sara Rey LEUKOCYTES SMALL Abnormal NEGATIVE [facility] Comment on above: Performed By: #### Monica PORTER UMICRO #### [facility] [address] [place] [address] Dr. Sara Rey Nitrite Ql (U) Negative Normal NEGATIVE [facility] Comment on above: Performed By: #### Monica PORTER UMICRO #### [facility] [address] [place] [address] Dr. Sara Rey pH (U) 8.5 [pH] Normal 5-9 [facility] Comment on above: Performed By: #### Monica PORTER UMICRO #### [facility] [address] [place] [address] Dr. Sara Rey SPEC GRAVITY 1.015 Normal 1.005-<=1. 025 [facility] Comment on above: Performed By: #### Monica PORTER UMICRO #### [facility] [address] [place] [address] Dr. Sara Rey UA PROTEIN TRACE Normal NEGATIVE/ TRACE [facility] Comment on above: Performed By: #### Monica PORTER UMICRO #### [facility] [address] [place] [address] Dr. Sara Rey UR MICRO IND INDICATED Normal [facility] Comment on above: Performed By: #### Monica PORTER UMICRO #### [facility] [address] [place] [address] Dr. Sara Rey Urobilinogen Qn (U) 4 {Jose'U}/dL Abnormal 0.2 - 1.0 [facility] Comment on above: Performed By: #### E RURROYALDENVERRO #### [facility] [address] [address] [address] Sara Rey URon 08-19-2022 , QUAL Negative Normal NEGATIVE [facility] Comment on above: Performed By: #### P REGU #### [facility] [address] [address] [address] Sara Rey PROF 14(COMP METB)on 022 Albumin [Mass/Vol] 3.8 g/dL Normal 3.4-5.0 [facility] Comment on above: Performed By: #### C BC #### [facility] [address] [place] [address] Dr. Sara Rey Albumin/Globulin [Mass ratio] 1.1 {ratio} Normal [facility] Comment on above: Performed By: #### C BC #### [facility] [address] [place] [address] Dr. Sara Rey ALP [Catalytic activity/Vol] 58 U/L Normal 46-116 [facility] Comment on above: Performed By: #### C BC #### [facility] [address] [address] [address] Sara Rey ALT [Catalytic activity/Vol] 219 U/L Critically high 14-59 [facility] Comment on above: Performed By: #### C BC #### [facility] [address] [address] [address] Sara Rey Anion gap [Moles/Vol] 11.2 mmol/L Normal [facility] Comment on above: Performed By: #### C BC #### [facility] [address] [address] [address] Sara Rey AST [Catalytic activity/Vol] 119 U/L Critically high 15-37 [facility] Comment on above: Performed By: #### C BC #### [facility] [address] [place] [address] Dr. Sara Rey Bilirubin [Mass/Vol] 1.1 mg/dL Critically high 0.2-1.0 [facility] Comment on above: Performed By: #### C BC #### [facility] [address] [place] [address] Dr. Sara Rey Calcium [Mass/Vol] 10.0 mg/dL Normal 8.5-10.1 [facility] Comment on above: Performed By: #### C BC #### [facility] [address] [place] [address] Dr. Sara Rey Chloride [Moles/Vol] 105 mmol/L Normal 98-107 [facility] Comment on above: Performed By: #### C BC #### [facility] [address] [place] [address] Dr. Sara Rey CO2 [Moles/Vol] 27.6 mmol/L Normal 21.0-32.0 [facility] Comment on above: Performed By: #### C BC #### [facility] [address] [place] [address] Dr. Sara Rey Creatinine [Mass/Vol] 0.73 mg/dL Normal 0.55-1.02 [facility] Comment on above: Performed By: #### C BC #### [facility] [address] [place] [address] Dr. Sara Rey EGFR-AF BOLIVIAN >60 Normal >=60 [facility] Comment on above: Performed By: #### C BC #### [facility] [address] [place] [address] Dr. Sara Rey EGFR-NON AF BOLIVIAN >60 Normal >=60 [facility] Comment on above: Performed By: #### C BC #### [facility] [address] [place] [address] Dr. Sara Rey Globulin (S) [Mass/Vol] 3.6 g/dL Normal [facility] Comment on above: Performed By: #### C BC #### [facility] [address] [place] [address] Dr. Sara Rey Glucose [Mass/Vol] 106 mg/dL Normal 74-106 [facility] Comment on above: Performed By: #### C BC #### [facility] [address] [place] [address] Dr. Sara Rey Potassium [Moles/Vol] 3.8 mmol/L Normal 3.5-5.[address] [facility] Comment on above: Performed By: #### C BC #### [facility] [address] [place] [address] Dr. Sara Rey Protein [Mass/Vol] 7.4 g/dL Normal 6.4-8.[address] [facility] Comment on above: Performed By: #### C BC #### [facility] [address] [place] [address] Dr. Sara Rey Sodium [Moles/Vol] 140 mmol/L Normal 136-[address] [facility] Comment on above: Performed By: #### C BC #### [facility] [address] [place] [address] Dr. Sara Rey Urea nitrogen [Mass/Vol] 11.0 mg/dL Normal 7.0-18.[address] [facility] Comment on above: Performed By: #### C BC #### [facility] [address] [place] [address] Dr. Sara Rey Urea nitrogen/Creatinine [Mass ratio] 15.1 mg/mg Normal [facility] Comment on above: Performed By: #### C BC #### [facility] [address] [place] [address] Dr. Sara Rey URINE MICROSCOPIC ONLYon BACTERIA SMALL Abnormal NONE SEEN [facility] Comment on above: Performed By: #### INOCENTE PACHECORO #### [facility] [address] [place] [address] Dr. Sara Rey Bacteria identified Cx Nom (U) INDICATED Normal [facility] Comment on above: Performed By: #### Monica PORTER UMICRO #### [facility] [address] [place] [address] Dr. Sara Rey CAST NONE SEEN Normal NONE SEEN [facility] Comment on above: Performed By: #### Monica PORTER UMICRO #### [facility] [address] [place] [address] Dr. Sara Rey Crystals LM Nom (Urine sed) NONE SEEN Normal NONE SEEN [facility] Comment on above: Performed By: #### E RUR, UMICRO #### [facility] [address] [address] [address] Sara Rey Epithelial cells LM Ql (Urine sed) MODERATE Abnormal NONE SEEN /RARE [facility] Comment on above: Performed By: #### E RUR, UMICRO #### [facility] [address] [address] [address] Sara Rey MUCOUS SMALL Abnormal NONE SEEN [facility] Comment on above: Performed By: #### E RUR, UMICRO #### [facility] [address] [address] [address] Sara Rey RBC 10-20 Abnormal 0-[address] [facility] Comment on above: Performed By: #### E RUR, UMICRO #### [facility] [address] [address] [address] Sara Rey WBC 5-10 Abnormal NONE SEEN [facility] Comment on above: Performed By: #### E RUR, UMICRO #### [facility] [address] [address] [address] Sara Rey US PELVIS TRANSVAGon 08-19- 022 US PELVIS TRANSVAG EXAMINATION: US PELV IS TRANSVAG HISTORY: Pain COMPARISON: Ultrasound pelvis 04/16/2022 TECHNIQUE: Transabdominal and transvaginal sonographic examination. FINDINGS: UTERUS: Normal size and appearance. Uterus size: 6.9 x 4.0 x 2.5 cm ENDOMETRIUM: Normal homogeneous appearance. Endometrial thickness: 7 mm RIGHT OVARY: Contains a 4.5 cm cyst with internal septation. Duplex Doppler demonstrates normal waveform and flow; resistive index 0.6. Ovary size: 5.3 x 4.6 x 4.4 cm LEFT OVARY: Normal size and appearance. Duplex Doppler demonstrates normal waveform and flow; resistive index 0.5. Ovary size: 2.4 x 2.2 x 2.0 cm CUL-DE-SAC: Unremarkable. No significant free fluid. BLADDER: Unremarkable. OTHER: None. IMPRESSION: 1. Complex right ovarian cyst, 4.5 cm in diameter. 2. Unremarkable uterus. Electronically authenticated by: SANDRITA OROPEZA Date: 2022-08-19 14:[address] [facility] CBC AUTO DIFFon 07-01-2022 BASO # 0.0 103/ul Normal 0.0-0.1 [facility] Comment on above: Performed By: #### C BC #### [facility] [address] [address] [address] Sara Rey Basophils/100 WBC (Bld) 0.4 % Normal 0.2-2.0 [facility] Comment on above: Performed By: #### C BC #### [facility] [address] [address] [address] Sara Rey EO # 0.1 103/ul Normal 0.0-0.7 [facility] Comment on above: Performed By: #### C BC #### [facility] [address] [place] [address] Dr. Sara Rey Eosinophils/100 WBC (Bld) 1.1 % Normal 0.9-7.0 [facility] Comment on above: Performed By: #### C BC #### [facility] [address] [place] [address] Dr. Sara Rey Erythrocyte distribution width (RBC) [Ratio] 12.3 % Normal 11.0-15.0 [facility] Comment on above: Performed By: #### C BC #### [facility] [address] [place] [address] Dr. Sraa Rey Hematocrit (Bld) [Volume fraction] 40.8 % Normal 36.0-48.0 [facility] Comment on above: Performed By: #### C BC #### [facility] [address] [place] [address] Dr. Sara Rey Hemoglobin (Bld) [Mass/Vol] 14.2 g/dL Normal 12.0-16.0 [facility] Comment on above: Performed By: #### C BC #### [facility] [address] [place] [address] Dr. Sara Rey IG # 0.03 10e3/ul Normal 0.00-0.03 [facility] Comment on above: Performed By: #### C BC #### [facility] [address] [place] [address] Dr. Sara Rey IG % 0.3 % Normal 0.0-0.5 [facility] Comment on above: Performed By: #### C BC #### [facility] [address] [place] [address] Dr. Sara Rey LYMPH # 2.2 103/ul Normal 1.2-3.8 [facility] Comment on above: Performed By: #### C BC #### [facility] [address] [place] [address] Dr. Sara Rey Lymphocytes/100 WBC (Bld) 19.9 % Critically low 20.5-60.0 [facility] Comment on above: Performed By: #### C BC #### [facility] [address] [place] [address] Dr. Sara Rey MANUAL DIFF REQ NO Normal [facility] Comment on above: Performed By: #### C BC #### [facility] [address] [place] [address] Dr. Sara Rey MCH (RBC) [Entitic mass] 32.1 pg Normal 26.7-34.0 [facility] Comment on above: Performed By: #### C BC #### [facility] [address] [place] [address] Dr. Sara Rey MCHC (RBC) [Mass/Vol] 34.8 g/dL Normal 29.9-35.2 [facility] Comment on above: Performed By: #### C BC #### [facility] [address] [place] [address] Dr. Sara Rey MCV (RBC) [Entitic vol] 92.1 fL Normal 81.0-99.0 [facility] Comment on above: Performed By: #### C BC #### [facility] [address] [place] [address] Dr. Sara Rey MONO # 0.6 103/ul Normal 0.3-0.8 [facility] Comment on above: Performed By: #### C BC #### [facility] [address] [place] [address] Dr. Sara Rey Monocytes/100 WBC (Bld) 5.6 % Normal 1.7-12.0 [facility] Comment on above: Performed By: #### C BC #### [facility] [address] [place] [address] Dr. Sara Rey NEUT # 7.9 103/ul Critically high 1.4-6.5 [facility] Comment on above: Performed By: #### C BC #### [facility] [address] [place] [address] Dr. Sara Rey Neutrophils/100 WBC (Bld) 72.7 % Normal 43.0-75.0 [facility] Comment on above: Performed By: #### C BC #### [facility] [address] [place] [address] Dr. Sara Rey Platelet mean volume (Bld) [Entitic vol] 10.5 fL Normal 9.5-13.5 [facility] Comment on above: Performed By: #### C BC #### [facility] [address] [place] [address] Dr. Sara Rey PLT 259 103/ul Normal 150-[address] [facility] Comment on above: Performed By: #### C BC #### [facility] [address] [place] [address] Dr. Sara Rey RBC 4.43 106/ul Normal 4.20-5.40 [facility] Comment on above: Performed By: #### C BC #### [facility] [address] [place] [address] Dr. Sara Rey WBC 10.8 103/ul Normal 4.0-11.[address] [facility] Comment on above: Performed By: #### C BC #### [facility] [address] [place] [address] Dr. Sara Rey [facility]on SARS-CoV-2 (COVID-19) RNA MARCELLA+probe Ql (Unsp spec) Not detected Normal NOT DETECTED [facility] Comment on above: Result Comment: This test is not yet approved or cleared by the [place] FDA. When there are no FDA-approved or cleared tests available, and other criteria are met, FDA can make tests available under an emergency access mechanism called an Emergency Use Authorization (EUA). The EUA for this test is supported by the [employer] Consultant of Health and Human Service's (HHS's) declaration that circumstances exist to justify the emergency use of in vitro diagnostics for the detection and/or diagnosis of the virus that causes COVID-19. This EUA will remain in effect (meaning this test can be used) for the duration of the COVID-19 declaration justifying emergency of IVDs, unless it is terminated or revoked by FDA (after which the test may no longer be used). When diagnostic testing is negative, the possibility of a false negative should be considered in the context of a patient's recent exposures and the presence of clinical signs and symptoms consistent with SARS-CoV-2. Performed By: #### P REGU #### [facility] [address] [place] [address] Dr. Sara Rey LIVER PROFILEon 07-01-2022 Albumin [Mass/Vol] 4.0 g/dL Normal 3.4-5.0 [facility] Comment on above: Performed By: #### B MP, LIVER, PREGQNT #### [facility] [address] [place] [address] Dr. Sara Rey Albumin/Globulin [Mass ratio] 1.0 {ratio} Normal [facility] Comment on above: Performed By: #### B MP, LIVER, PREGQNT #### [facility] [address] [place] [address] Dr. Sara Rey ALP [Catalytic activity/Vol] 64 U/L Normal 46-[address] [facility] Comment on above: Performed By: #### B MP, LIVER, PREGQNT #### [facility] [address] [place] [address] Dr. Sara Rey ALT [Catalytic activity/Vol] 112 U/L Critically high 14-59 [facility] Comment on above: Performed By: #### B MP, LIVER, PREGQNT #### [facility] [address] [place] [place] [address] Dr. Sara Rey AST [Catalytic activity/Vol] 61 U/L Critically high 15-37 [facility] Comment on above: Performed By: #### B MP, LIVER, PREGQNT #### [facility] [address] [place] [address] Dr. Sara Rey BILI, CONJUGATED 0.2 mg/dL Normal 0.0-0.2 [facility] Comment on above: Performed By: #### B MP, LIVER, PREGQNT #### [facility] [address] [place] [address] Dr. Sara Rey Bilirubin [Mass/Vol] 0.7 mg/dL Normal 0.2-1.0 [facility] Comment on above: Performed By: #### B MP, LIVER, PREGQNT #### [facility] [address] [place] [address] Dr. Sara Rey Globulin (S) [Mass/Vol] 3.9 g/dL Normal [facility] Comment on above: Performed By: #### B MP, LIVER, PREGQNT #### [facility] [address] [place] [address] Dr. Sara Rey Protein [Mass/Vol] 7.9 g/dL Normal 6.4-8.2 [facility] Comment on above: Performed By: #### B MP, LIVER, PREGQNT #### [facility] [address] [place] [address] Dr. Sara Rey PREG QUANT HCGon 07-01-2022 HCG QUANT 2 mIU/mL Normal [facility] Comment on above: Performed By: #### B MP, LIVER, PREGQNT #### [facility] [address] [place] [address] Dr. Sara Rey HCG RANGE SEE BELOW Normal [facility] Comment on above: Result Comment: 5-50 0.2-1 WEEK 50-500 1-2 WEEKS 100-5,000 2-3 WEEKS 500-10,000 3-4 WEEKS 1,000-50,000 4-5 WEEKS 10,000-100,000 5-6 WEEKS 15,000-200,000 6-8 WEEKS 10,000-100,000 2-3 MONTHS Performed By: #### B MP, LIVER, PREGQNT #### [facility] [address] [place] [address] Dr. Sara Rey PROF CHEM 8 (BAS METB)on Anion gap [Moles/Vol] 13.4 mmol/L Normal [facility] Comment on above: Performed By: #### B MP, LIVER, PREGQNT #### [facility] [address] [address] [address] Sara Rey Calcium [Mass/Vol] 9.7 mg/dL Normal 8.5-10.1 [facility] Comment on above: Performed By: #### B MP, LIVER, PREGQNT #### [facility] [address] [place] [address] Dr. Sara Rey Chloride [Moles/Vol] 104 mmol/L Normal 98-107 [facility] Comment on above: Performed By: #### B MP, LIVER, PREGQNT #### [facility] [address] [place] [address] Dr. Sara Rey CO2 [Moles/Vol] 23.4 mmol/L Normal 21.0-32.0 [facility] Comment on above: Performed By: #### B MP, LIVER, PREGQNT #### [facility] [address] [place] [address] Dr. Sara Rey Creatinine [Mass/Vol] 0.79 mg/dL Normal 0.55-1.02 [facility] Comment on above: Performed By: #### B MP, LIVER, PREGQNT #### [facility] [address] [place] [address] Dr. Sara Rey EGFR-AF BOLIVIAN >60 Normal >=[address] [facility] Comment on above: Performed By: #### B MP, LIVER, PREGQNT #### [facility] [address] [place] [address] Dr. Sara Rey EGFR-NON AF BOLIVIAN >60 Normal >=60 [facility] Comment on above: Performed By: #### B MP, LIVER, PREGQNT #### [facility] [address] [place] [address] Dr. Sara Rey Glucose [Mass/Vol] 105 mg/dL Normal 74-[address] [facility] Comment on above: Performed By: #### B MP, LIVER, PREGQNT #### [facility] [address] [address] [address] Sara Rey Potassium [Moles/Vol] 3.8 mmol/L Normal 3.5-5.[address] [facility] Comment on above: Performed By: #### B MP, LIVER, PREGQNT #### [facility] [address] [place] [address] Dr. Sara Rey Sodium [Moles/Vol] 137 mmol/L Normal 136-[address] [facility] Comment on above: Performed By: #### B MP, LIVER, PREGQNT #### [facility] [address] [place] [address] Dr. Sara Rey Urea nitrogen [Mass/Vol] 8.0 mg/dL Normal 7.0-18.0 [facility] Comment on above: Performed By: #### B MP, LIVER, PREGQNT #### [facility] [address] [place] [address] Dr. Sara Rey Urea nitrogen/Creatinine [Mass ratio] 10.1 mg/mg Normal [facility] Comment on above: Performed By: #### B MP, LIVER, PREGQNT #### [facility] [address] [place] [address] Dr. Sara Rey PROTIMEon 07-01-2022 INR Coag (PPP) [Relative time] 1.02 {INR} Normal [facility] Comment on above: Performed By: #### D SDOALC #### [facility] [address] [place] [address] Dr. Sara Rey INR GUIDELINES SEE BELOW Normal [facility] Comment on above: Result Comment: CRYSTAL RED INR: 2.0 - 3.0 CONDITIONS NOT LISTED BELOW 2.5 - 3.5 FOR PROSTHETIC HEART VALVE REPLACEMENT 2.5 - 3.5 RECURRENT THROMBOSIS Performed By: #### D SDOALC #### [facility] [address] [place] [address] Dr. Sara Rey PT Coag (PPP) [Time] 11.0 s Normal 9.0-11.6 [facility] Comment on above: Performed By: #### D SDOALC #### [facility] [address] [place] [address] Dr. Sara Rey PTTon 07-01-2022 aPTT Coag (Bld) [Time] 32.6 s Normal 22.3-36.2 [facility] Comment on above: Performed By: #### D SDOALC #### [facility] [address] [place] [address] Dr. Sara Rey DRUG SCREEN RAPID (URINE)on 06-20-2022 AMP Negative Normal NEGATIVE [facility] Comment on above: Performed By: #### H IV12 #### [facility] [address] [place] [address] Dr. Sara Rey BAR Negative Normal NEGATIVE [facility] Comment on above: Performed By: #### H IV12 #### [facility] [address] [place] [address] Dr. Sara Rey BUP Negative Normal NEGATIVE [facility] Comment on above: Performed By: #### H IV12 #### [facility] [address] [place] [address] Dr. Sara Rey BZO Negative Normal NEGATIVE [facility] Comment on above: Performed By: #### H IV12 #### [facility] [address] [place] [address] Dr. Sara Rey KAYLIN Negative Normal NEGATIVE [facility] Comment on above: Performed By: #### H IV12 #### [facility] [address] [place] [address] Dr. Sara Rey CUT-OFFS SEE BELOW Normal [facility] Comment on above: Result Comment: AMP (Amphetamine): 500ng/mL, BAR (Barbituates): 200 ng/mL, BZO (Benzodiazepines): 150 ng/mL, BUP (Buprenorphine): 10 ng/mL, KAYLIN (Cocaine): 150 ng/mL, mAMP (Methamphetamine): 500 ng/mL, MTD (Methadone): 200 ng/mL, OPI (Opiates): 100 ng/mL, OXY (Oxycodone): 100 ng/mL, PCP (Phencyclidine): 25 ng/mL, PPX (Propoxyphene): 300 ng/mL, THC (Cannabinoids): 50 ng/mL, TCA (Trycyclic Antidepressants): 300 ng/mL Performed By: #### H IV12 #### [facility] [address] [address] [address] Sara Rey DRUG CUT HEADER DRUG CLASS TEST SYST EM CUT-OFF CONCENTRATIONS ARE FOLLOWS: Normal [facility] Comment on above: Performed By: #### H IV12 #### [facility] [address] [address] [address] Sara Rey mAMP Negative Normal NEGATIVE [facility] Comment on above: Performed By: #### H IV12 #### [facility] [address] [place] [address] Dr. Sara Rey MTD Negative Normal NEGATIVE [facility] Comment on above: Performed By: #### H IV12 #### [facility] [address] [address] [address] Sara Rey OPI Negative Normal NEGATIVE [facility] Comment on above: Performed By: #### H IV12 #### [facility] [address] [address] [address] Sara Rey OXY Negative Normal NEGATIVE [facility] Comment on above: Performed By: #### H IV12 #### [facility] [address] [place] [address] Dr. Sara Rey PCP Negative Normal NEGATIVE [facility] Comment on above: Performed By: #### H IV12 #### [facility] [address] [place] [address] Dr. Sara Rey PPX Negative Normal NEGATIVE [facility] Comment on above: Performed By: #### H IV12 #### [facility] [address] [place] [address] Dr. Sara Rey TCA Negative Normal NEGATIVE [facility] Comment on above: Performed By: #### H IV12 #### [facility] [address] [address] [address] Sara Rey THC Positive Abnormal NEGATIVE [facility] Comment on above: Performed By: #### H IV12 #### [facility] [address] [place] [address] Dr. Sara Rey PAP ACOG PANEL 2: 20 to 28on 06-17-2022 . . Normal [facility] Comment on above: Performed By: #### H IV12 #### [facility] [address] [place] [address] Dr. Sara Rey Age Gdln ACOG Testing - Normal [facility] Comment on above: Performed By: #### H IV12 #### [facility] [address] [place] [address] Dr. Sara Rey DIAGNOSIS: Comment Normal [facility] Comment on above: Result Comment: NEGA TIVE FOR INTRAEPITHELIAL LESION OR MALIGNANCY. Performed By: #### H IV12 #### [facility] [address] [place] [address] Dr. Sara Rey Methodology: CTIM Normal [facility] Comment on above: Result Comment: The [employer]) Mobile Security Architect was unable to read this specimen. Therefore a manual review was performed. Performed By: #### H IV12 #### [facility] [address] [place] [address] Dr. Sara Rey Note: Comment Normal [facility] Comment on above: Result Comment: The Pap smear is a screening test designed to aid in the detection of premalignant and malignant conditions of the uterine cervix. It is not a diagnostic procedure and should not be used as the sole means of detecting cervical cancer. Both false-positive and false-negative reports do occur. . Performed By: #### H IV12 #### [facility] [address] [place] [address] Dr. Sara Rey Performed by: Comment [facility] Comment on above: Result Comment: Beata Quinones, Funeral Location Manager (ASCP) Performed By: #### H IV12 #### [facility] [address] [place] [address] Dr. Sara Rey Reflex Criteria: Comment [facility] Comment on above: Result Comment: The HPV DNA reflex criteria were not met with this specimen result therefore, no HPV testing was performed. . Performed By: #### H IV12 #### [facility] [address] [place], [place] [address] Dr. Sara Rey Specimen adequacy: Comment Normal [facility] Comment on above: Result Comment: Sati sfactory for evaluation. Endocervical and/or squamous metaplastic cells (endocervical component) are present. Performed By: #### H IV12 #### [facility] [address] [place], [place] [address] Dr. Sara Rey DHEA SERUMon 05-30-2022 Dehydroepiandrosterone (DHEA) 243 ng/dL Normal 31-701 [facility] Comment on above: Result Comment: Age 1 - 5 years 0 - 67 6 - 7 years 0 - 110 8 - 10 years 0 - 185 11 - 12 years 0 - 201 13 - 14 years 0 - 318 15 - 16 years 39 - 481 17 - 19 years 40 - 491 >19 years 31 - 701 Performed By: #### H IV12 #### [facility] [address] [place], [place] [address] Dr. Sara Rey ANTI-MULLERIAN HORMONEon Anti-Mullerian Hormone (AMH) 14.5 ng/mL Critically high [facility] Comment on above: Result Comment: For assays employing antibodies, the possibility exists for interference by heterophile antibodies in the samples.1 1.Giancarlo Rodriguez Interferences in Immunoassays - still a threat. Clin. Chem. 2000; 46: 0968-7789. This test was developed and its performance characteristics determined by [employer]. It has not been cleared or approved by the Food and Drug Administration. Reference Range: Females 26 - 30y: 1.03 - 11.10 Median 4.20 AMH concentrations of >= 1.06 ng/mL is correlated with a better response to ovarian stimulation, produced more retrievable oocytes and higher odds of live according to Tonnyer et al. Fertility and Sterility. 2010: 94:4741-3124. The current AMH test method correlates with the study method with a slope of 0.94. Females at risk of ovarian hyperstimulation syndrome or polycystic ovarian syndrome (PCOS) may exhibit elevated serum AMH concentrations. AMH levels from PCOS patients may be 2 to 5 fold higher than age-appropriate reference interval values. Granulosa cell tumors of the ovary may secrete AMH along with other tumor markers. Elevated AMH is not specific for malignancy, and the assay should not be used exclusively to diagnose or exclude an AMH-secreting ovarian tumor. Performed By: #### P REGU #### [facility] [address] [place] [address] Dr. Sara Rey HEPATITIS C VIRUS GENOTYPING , NONREFLEXon 05-29-2022 Hepatitis C Genotype 4 Normal [facility] Comment on above: Performed By: #### B MP, LIVER, PREGQNT #### [facility] [address] [address] [address] Sara Rey Please note: Comment Normal [facility] Comment on above: Result Comment: This test was developed and its performance characteristics determined by [employer]. It has not been cleared or approved by the U.S. Food and Drug Administration. . The FDA has determined that such clearance or approval is not necessary. This test is used for clinical purposes. It should not be regarded as investigational or for research. Performed By: #### B MP, LIVER, PREGQNT #### [facility] [address] [place] [address] Dr. Sara Rey DHEA-SULFATEon 05-27-2022 DHEA-Sulfate 221.0 ug/dL Normal 84.8-378.0 [facility] Comment on above: Performed By: #### H IV12 #### [facility] [address] [place] [address] Dr. Sara Rey FSHon 05-27-2022 FSH 7.6 mIU/mL Normal [facility] Comment on above: Result Comment: Adul t Female: Follicular phase 3.5 - 12.5 Ovulation phase 4.7 - 21.5 Luteal phase 1.7 - 7.7 Postmenopausal 25.8 - 134.8 Performed By: #### B MP, LIVER, PREGQNT #### [facility] [address] [place] [address] Dr. Sara Rey HIV 1 AND 2 WITH REFLEXon HIV Screen 4th Generation wRfx Non-Reactive Normal Non Reactive [facility] Comment on above: Result Comment: HIV Negative HIV-1/HIV-2 antibodies and HIV-1 p24 antigen were NOT detected. There is no laboratory evidence of HIV infection. Performed By: #### H IV12 #### [facility] [address] [place] [address] Dr. Sara Rey LUTEINIZING HORMONE (LH)on 0 05-27-2022 LH 25.5 mIU/mL Normal [facility] Comment on above: Result Comment: Adul t Female: Follicular phase 2.4 - 12.6 Ovulation phase 14.0 - 95.6 Luteal phase 1.0 - 11.4 Postmenopausal 7.7 - 58.5 Performed By: #### C YTO #### [facility] [address] [place] [address] Dr. Sara Rey PROLACTINon 05-27-2022 Prolactin 8.0 ng/mL Normal 4.8-23.3 [facility] Comment on above: Performed By: #### H IV12 #### [facility] [address] [place] [address] Dr. Sara Rey HEPATITIS C VIRUS (HCV) MIRANDA T PCR (NON-Larry 05-25-2022 HCV log10 4.706 log10 IU/mL Normal [facility] Comment on above: Performed By: #### H IV12 #### [facility] [address] [place] [address] Dr. Sara Rey Hepatitis C Quantitation 89497 IU/mL Normal [facility] Comment on above: Performed By: #### H IV12 #### [facility] [address] [place] [address] Dr. Sara Rey Test Information: Comment Normal [facility] Comment on above: Result Comment: The quantitative range of this assay is 15 IU/mL to 100 million IU/mL. Performed By: #### H IV12 #### [facility] [address] [place] [address] Dr. Sara Rey US SINGLE QUAD RT UPPERon US SINGLE QUAD RT UPPER ULTRASOUND RIGHT UPPER QUADRANT HISTORY: Chronic hepatitis C. COMPARISON: None. FINDINGS: The liver appears unremarkable. There is no evidence for mass or intrahepatic biliary ductal dilatation. The gallbladder has been removed. The common bile duct measures 3.3 mm. Negative Mcfarland's sign. The visualized portions of the pancreas appear unremarkable. The right kidney is normal appearing with no evidence of hydronephrosis or masses. IMPRESSION: Gallbladder removed, otherwise unremarkable exam. Electronically authenticated by: CAYDEN LANZA Date: 2022-05-25 09:[address] [facility] HEP B SURFACE ANTIGEN SCREEN on 05-24-2022 HBsAg Confirmation Negative Normal [facility] Comment on above: Result Comment: Moira gutierrez result obtained by neutralization. Performed By: #### H IV12 #### [facility] [address] [place] [address] Dr. Sara Rey HBsAg Screen Confirm. indicated Normal Negative [facility] Comment on above: Performed By: #### H IV12 #### [facility] [address] [place] [address] Dr. Sara Rey HEPATITIS C ANTIBODYon 05-24 Hep C Virus Ab >11.0 Critically high 0.0-0.9 [facility] Comment on above: Result Comment: Nega tive: < 0.8 Indeterminate: 0.8 - 0.9 Positive: > 0.9 . HCV antibody alone does not differentiate between previous resolved infection and active infection. The CDC and current clinical guidelines recommend that a positive HCV antibody result be followed up with an HCV RNA test to support the diagnosis of acute HCV infection. [facility] offers Hepatitis C Virus (HCV) RNA, Diagnosis, MARCELLA (310549) and Hepatitis C Virus (HCV) Antibody with reflex to Quantitative Real-time PCR ([id number]). Performed By: #### P REGU #### [facility] [address] [place] [address] Dr. Sara Rey CBC AUTO DIFFon 05-22-2022 BASO # 0.0 103/ul Normal 0.0-0.1 [facility] Comment on above: Performed By: #### D SDOALC #### [facility] [address] [place] [address] Dr. Sara Rey Basophils/100 WBC (Bld) 0.4 % Normal 0.2-2.0 [facility] Comment on above: Performed By: #### D SDOALC #### [facility] [address] [place] [address] Dr. Sara Rey EO # 0.1 103/ul Normal 0.0-0.[address] [facility] Comment on above: Performed By: #### D SDOALC #### [facility] [address] [place] [address] Dr. Sara Rey Eosinophils/100 WBC (Bld) 0.8 % Critically low 0.9-7.0 [facility] Comment on above: Performed By: #### D SDOALC #### [facility] [address] [place] [address] Dr. Sara Rey Erythrocyte distribution width (RBC) [Ratio] 12.5 % Normal 11.0-15.0 [facility] Comment on above: Performed By: #### D SDOALC #### [facility] [address] [place] [address] Dr. Sara Rey Hematocrit (Bld) [Volume fraction] 42.1 % Normal 36.0-48.0 [facility] Comment on above: Performed By: #### D SDOALC #### [facility] [address] [place] [address] Dr. Sara Rey Hemoglobin (Bld) [Mass/Vol] 14.6 g/dL Normal 12.0-16.0 [facility] Comment on above: Performed By: #### D SDOALC #### [facility] [address] [place] [address] Dr. Sara Rey IG # 0.02 10e3/ul Normal 0.00-0.[address] [facility] Comment on above: Performed By: #### D SDOALC #### [facility] [address] [place] [address] Dr. Sara Rey IG % 0.3 % Normal 0.0-0.[address] [facility] Comment on above: Performed By: #### D SDOALC #### [facility] [address] [place] [address] Dr. Sara Rey LYMPH # 2.6 103/ul Normal 1.2-3.[address] [facility] Comment on above: Performed By: #### D SDOALC #### [facility] [address] [place] [address] Dr. Sara Rey Lymphocytes/100 WBC (Bld) 32.9 % Normal 20.5-60.0 [facility] Comment on above: Performed By: #### D SDOALC #### [facility] [address] [place] [address] Dr. Sara Rey MANUAL DIFF REQ NO Normal [facility] Comment on above: Performed By: #### D SDOALC #### [facility] [address] [place] [address] Dr. Sara Rey MCH (RBC) [Entitic mass] 31.5 pg Normal 26.7-34.0 [facility] Comment on above: Performed By: #### D SDOALC #### [facility] [address] [place] [address] Dr. Sara Rey MCHC (RBC) [Mass/Vol] 34.7 g/dL Normal 29.9-35.2 [facility] Comment on above: Performed By: #### D SDOALC #### [facility] [address] [place] [address] Dr. Sara Rey MCV (RBC) [Entitic vol] 90.9 fL Normal 81.0-99.0 [facility] Comment on above: Performed By: #### D SDOALC #### [facility] [address] [place] [address] Dr. Sara Rey MONO # 0.5 103/ul Normal 0.3-0.8 [facility] Comment on above: Performed By: #### D SDOALC #### [facility] [address] [place] [address] Dr. Sara Rey Monocytes/100 WBC (Bld) 5.8 % Normal 1.7-12.0 [facility] Comment on above: Performed By: #### D SDOALC #### [facility] [address] [place] [address] Dr. Sara Rey NEUT # 4.7 103/ul Normal 1.4-6.5 [facility] Comment on above: Performed By: #### D SDOALC #### [facility] [address] [address] [address] Sara Rey Neutrophils/100 WBC (Bld) 59.8 % Normal 43.0-75.[address] [facility] Comment on above: Performed By: #### D SDOALC #### [facility] [address] [address] [address] Sara Rey Platelet mean volume (Bld) [Entitic vol] 10.8 fL Normal 9.5-13.[address] [facility] Comment on above: Performed By: #### D SDOALC #### [facility] [address] [address] [address] Sara Rey PLT 283 103/ul Normal 150-[address] [facility] Comment on above: Performed By: #### D SDOALC #### [facility] [address] [place] [address] Dr. Sara Rey RBC 4.63 106/ul Normal 4.20-5.40 [facility] Comment on above: Performed By: #### D SDOALC #### [facility] [address] [address] [address] Sara Rey WBC 7.8 103/ul Normal 4.0-11.[address] [facility] Comment on above: Performed By: #### D SDOALC #### [facility] [address] [place] [address] Dr. Sara Rey FREE T3on 05-22-2022 FREE T3 2.45 pg/mlL Normal 2.18-3.98 [facility] Comment on above: Performed By: #### C BC #### [facility] [address] [address] [address] Sara Rey GLYCOHEMOGLOBIN A1Con 2021 ADA RECOMMENDATION SEE BELOW Normal [facility] Comment on above: Result Comment: ADA RECOMMENDED LIMIT 4.0 - 6.0 ADA THERAPEUTIC TARGET < 7.0 ACTION SUGGESTED > 7.0 Performed By: #### B MP, LIVER, PREGQNT #### [facility] [address] [address] [address] Sara Rey Glucose [Mass/Vol] 105 mg/dL Normal [facility] Comment on above: Performed By: #### B MP, LIVER, PREGQNT #### [facility] [address] [place] [address] Dr. Sara Rey HbA1c (Bld) [Mass fraction] 5.3 % Normal 4.5-6.2 [facility] Comment on above: Performed By: #### B MP, LIVER, PREGQNT #### [facility] [address] [place] [address] Dr. Sara Rey PROF 14(COMP METB)on 022 Albumin [Mass/Vol] 3.9 g/dL Normal 3.4-5.0 [facility] Comment on above: Performed By: #### C BC #### [facility] [address] [place] [address] Dr. Sara Rey Albumin/Globulin [Mass ratio] 1.0 {ratio} Normal [facility] Comment on above: Performed By: #### C BC #### [facility] [address] [place] [address] Dr. Sara Rey ALP [Catalytic activity/Vol] 71 U/L Normal 46-116 [facility] Comment on above: Performed By: #### C BC #### [facility] [address] [place] [address] Dr. Sara Rey ALT [Catalytic activity/Vol] 83 U/L Critically high 14-59 [facility] Comment on above: Performed By: #### C BC #### [facility] [address] [place] [address] Dr. Sara Rey Anion gap [Moles/Vol] 13.1 mmol/L Normal [facility] Comment on above: Performed By: #### C BC #### [facility] [address] [place] [address] Dr. Sara Rey AST [Catalytic activity/Vol] 43 U/L Critically high 15-37 [facility] Comment on above: Performed By: #### C BC #### [facility] [address] [place] [address] Dr. Sara Rey Bilirubin [Mass/Vol] 0.6 mg/dL Normal 0.2-1.0 [facility] Comment on above: Performed By: #### C BC #### [facility] [address] [address] [address] Sara Rey Calcium [Mass/Vol] 9.8 mg/dL Normal 8.5-10.1 [facility] Comment on above: Performed By: #### C BC #### [facility] [address] [address] [address] Sara Rey Chloride [Moles/Vol] 102 mmol/L Normal 98-107 [facility] Comment on above: Performed By: #### C BC #### [facility] [address] [place] [address] Dr. Sara Rey CO2 [Moles/Vol] 24.9 mmol/L Normal 21.0-32.0 [facility] Comment on above: Performed By: #### C BC #### [facility] [address] [place] [address] Dr. Sara Rey Creatinine [Mass/Vol] 0.70 mg/dL Normal 0.55-1.02 [facility] Comment on above: Performed By: #### C BC #### [facility] [address] [place] [address] Dr. Sara Rey EGFR-AF BOLIVIAN >60 Normal >=60 [facility] Comment on above: Performed By: #### C BC #### [facility] [address] [place] [address] Dr. Sara Rey EGFR-NON AF BOLIVIAN >60 Normal >=60 [facility] Comment on above: Performed By: #### C BC #### [facility] [address] [place] [address] Dr. Sara Rey Globulin (S) [Mass/Vol] 4.0 g/dL Normal [facility] Comment on above: Performed By: #### C BC #### [facility] [address] [place] [address] Dr. Sara Rey Glucose [Mass/Vol] 87 mg/dL Normal 74-106 [facility] Comment on above: Performed By: #### C BC #### [facility] [address] [address] [address] Sara Rey Potassium [Moles/Vol] 4.0 mmol/L Normal 3.5-5.1 [facility] Comment on above: Performed By: #### C BC #### [facility] [address] [id number] [address] Sara Rey Protein [Mass/Vol] 7.9 g/dL Normal 6.4-8.[address] [facility] Comment on above: Performed By: #### C BC #### [facility] [address] [address] [address] Sara Rey Sodium [Moles/Vol] 136 mmol/L Normal 136-145 [facility] Comment on above: Performed By: #### C BC #### [facility] [address] [place] [address] Dr. Sara Rey Urea nitrogen [Mass/Vol] 10.0 mg/dL Normal 7.0-18.0 [facility] Comment on above: Performed By: #### C BC #### [facility] [address] [place] [address] Dr. Sara Rey Urea nitrogen/Creatinine [Mass ratio] 14.3 mg/mg Normal [facility] Comment on above: Performed By: #### C BC #### [facility] [address] [place], [place] [id number] Dr. Sara Rey TSHon 05-22-2022 TSH 0.573 uIU/mL Normal 0.358-3.74 0 [facility] Comment on above: Performed By: #### C BC #### [facility] [address] [place] [address] Dr. Sara Rey [facility]on SARS-CoV-2 (COVID-19) RNA MARCELLA+probe Ql (Unsp spec) Not detected Normal NOT DETECTED [facility] Comment on above: Result Comment: When diagnostic testing is negative, the possibility of a false negative should be considered in the context of a patient's recent exposures and the presence of clinical signs and symptoms consistent with SARS-CoV-2. This test is not yet approved or cleared by the [place] FDA. When there are no FDA-approved or cleared tests available, and other criteria are met, FDA can make tests available under an emergency access mechanism called an Emergency Use Authorization (EUA). The EUA for this test is supported by the [employer] Consultant of Health and Human Service's declaration that circumstances exist to justify the emergency use of in vitro diagnostics for the detection and/or diagnosis of the virus that causes COVID-19. This EUA will remain in effect for the duration of the COVID-19 declaration justifying emergency of IVDs, unless it is terminated or revoked by the FDA (after which the test may no longer be used). Performed By: #### B MP, LIVER, PREGQNT #### [facility] [address] [place] [address] Dr. Sara Rey XR CHEST 1 Von 05-06-2022 XR CHEST 1 V EXAM: XR CHEST 1 V 05/06/2022 1:34 AM EDT OH001 CLINICAL STATEMENT: COUGH COMPARISON: 09/26/2012 TECHNIQUE: Single AP radiograph of the chest is submitted. FINDINGS: There is no acute airspace disease. The cardiac silhouette is normal. The costophrenic recesses are sharp. No pneumothorax. The bony elements are unremarkable. IMPRESSION: No acute cardiopulmonary process. FOLLOW-UP: Follow-up as clinically indicated. Electronically authenticated by: BENITO ARMIJO Date: 2022-05-06 03:47 Normal [facility] CBC AUTO DIFFon 04-24-2022 BASO # 0.0 103/ul Normal 0.0-0.1 [facility] Comment on above: Performed By: #### H IV12 #### [facility] [address] [place] [address] Dr. Sara Rey Basophils/100 WBC (Bld) 0.2 % Normal 0.2-2.0 [facility] Comment on above: Performed By: #### H IV12 #### [facility] [address] [place] [address] Dr. Sara Rey EO # 0.1 103/ul Normal 0.0-0.7 [facility] Comment on above: Performed By: #### H IV12 #### [facility] [address] [place] [address] Dr. Sara Rey Eosinophils/100 WBC (Bld) 1.4 % Normal 0.9-7.[address] [facility] Comment on above: Performed By: #### H IV12 #### [facility] [address] [place] [address] Dr. Sara Rey Erythrocyte distribution width (RBC) [Ratio] 12.8 % Normal 11.0-15.0 [facility] Comment on above: Performed By: #### H IV12 #### [facility] [address] [place] [address] Dr. Sara Rey Hematocrit (Bld) [Volume fraction] 40.4 % Normal 36.0-48.0 [facility] Comment on above: Performed By: #### H IV12 #### [facility] [address] [place] [address] Dr. Sara Rey Hemoglobin (Bld) [Mass/Vol] 14.1 g/dL Normal 12.0-16.0 [facility] Comment on above: Performed By: #### H IV12 #### [facility] [address] [place] [address] Dr. Sara Rey IG # 0.03 10e3/ul Normal 0.00-0.03 [facility] Comment on above: Performed By: #### H IV12 #### [facility] [address] [place] [address] Dr. Sara Rey IG % 0.3 % Normal 0.0-0.[address] [facility] Comment on above: Performed By: #### H IV12 #### [facility] [address] [place] [address] Dr. Sara Rey LYMPH # 2.1 103/ul Normal 1.2-3.[address] [facility] Comment on above: Performed By: #### H IV12 #### [facility] [address] [place] [address] Dr. Sara Rey Lymphocytes/100 WBC (Bld) 23.9 % Normal 20.5-60.[address] [facility] Comment on above: Performed By: #### H IV12 #### [facility] [address] [place] [address] Dr. Sara Rey MANUAL DIFF REQ NO Normal [facility] Comment on above: Performed By: #### H IV12 #### [facility] [address] [place] [address] Dr. Sara Rey MCH (RBC) [Entitic mass] 31.8 pg Normal 26.7-34.0 [facility] Comment on above: Performed By: #### H IV12 #### [facility] [address] [place] [address] Dr. Sara Rey MCHC (RBC) [Mass/Vol] 34.9 g/dL Normal 29.9-35.2 [facility] Comment on above: Performed By: #### H IV12 #### [facility] [address] [place] [address] Dr. Sara Rey MCV (RBC) [Entitic vol] 91.0 fL Normal 81.0-99.0 [facility] Comment on above: Performed By: #### H IV12 #### [facility] [address] [place] [address] Dr. Sara Rey MONO # 0.6 103/ul Normal 0.3-0.8 [facility] Comment on above: Performed By: #### H IV12 #### [facility] [address] [place] [address] Dr. Sara Rey Monocytes/100 WBC (Bld) 6.9 % Normal 1.7-12.0 [facility] Comment on above: Performed By: #### H IV12 #### [facility] [address] [place] [address] Dr. Sara Rey NEUT # 5.8 103/ul Normal 1.4-6.5 [facility] Comment on above: Performed By: #### H IV12 #### [facility] [address] [place] [address] Dr. Sara Rey Neutrophils/100 WBC (Bld) 67.3 % Normal 43.0-75.0 [facility] Comment on above: Performed By: #### H IV12 #### [facility] [address] [place] [address] Dr. Sara Rey Platelet mean volume (Bld) [Entitic vol] 10.0 fL Normal 9.5-13.5 [facility] Comment on above: Performed By: #### H IV12 #### [facility] [address] [place] [address] Dr. Sara Rey PLT 256 103/ul Normal 150-450 [facility] Comment on above: Performed By: #### H IV12 #### [facility] [address] [place] [address] Dr. Sara Rey RBC 4.44 106/ul Normal 4.20-5.40 [facility] Comment on above: Performed By: #### H IV12 #### [facility] [address] [place] [address] Dr. Sara Rey WBC 8.7 103/ul Normal 4.0-11.0 [facility] Comment on above: Performed By: #### H IV12 #### [facility] [address] [place] [address] Dr. Sara Rey ER URINE PROFILEon 2 Bilirubin Ql (U) Negative Normal NEGATIVE [facility] Comment on above: Performed By: #### INOCENTE PACHECORO #### [facility] [address] [place] [address] Dr. Sara Rey Clarity (U) CLEAR Normal CLEAR [facility] Comment on above: Performed By: #### ROYAL PACHECOICRO #### [facility] [address] [place] [address] Dr. Sara Rey Color (U) YELLOW Normal YELLOW [facility] Comment on above: Performed By: #### ROYAL PACHECOICRO #### [facility] [address] [place] [address] Dr. Sara Rey ERUALLISON A micrscopic examina tion will be performed if indicated. Normal [facility] Comment on above: Performed By: #### Monica PORTER UMICRO #### [facility] [address] [place] [address] Dr. Sara Rey Glucose Ql (U) Negative Normal NEGATIVE [facility] Comment on above: Performed By: #### Monica PORTER UMICRO #### [facility] [address] [place] [address] Dr. Sara Rey Hemoglobin Ql (U) TRACE-INTACT Abnormal NEGATIVE [facility] Comment on above: Performed By: #### Monica PORTER, UMICRO #### [facility] [address] [place] [address] Dr. Sara Rey Ketones Ql (U) Negative Normal NEGATIVE [facility] Comment on above: Performed By: #### Monica PORTER UMICRO #### [facility] [address] [place] [address] Dr. Sara Rey LEUKOCYTES Negative Normal NEGATIVE [facility] Comment on above: Performed By: #### Monica PORTER UMICRO #### [facility] [address] [place] [address] Dr. Sara Rey Nitrite Ql (U) Negative Normal NEGATIVE [facility] Comment on above: Performed By: #### Monica PORTER UMICRO #### [facility] [address] [place] [address] Dr. Sara Rey pH (U) 7.5 [pH] Normal 5-9 [facility] Comment on above: Performed By: #### Monica PORTER UMICRO #### [facility] [address] [place] [address] Dr. Sara Rey SPEC GRAVITY 1.015 Normal 1.005-<=1. [address] [facility] Comment on above: Performed By: #### Monica PORTER UMICRO #### [facility] [address] [place] [address] Dr. Sara Rey UA PROTEIN Negative Normal NEGATIVE/ TRACE [facility] Comment on above: Performed By: #### Monica PORTER UMICRO #### [facility] [address] [place] [address] Dr. Sara Rey UR MICRO IND INDICATED Normal [facility] Comment on above: Performed By: #### Monica PORTER UMICRO #### [facility] [address] [place] [address] Dr. Sara Rey Urobilinogen Qn (U) 4 {Jose'U}/dL Abnormal 0.2 - 1.0 [facility] Comment on above: Performed By: #### RAYMOND PACHECO #### [facility] [address] [place] [address] Dr. Sara Rey URon 04-24-2022 , QUAL Negative Normal NEGATIVE [facility] Comment on above: Performed By: #### RAYMOND PACHECO #### [facility] [address] [place] [address] Dr. Sara Rey PROF 14(COMP METB)on 022 Albumin [Mass/Vol] 3.8 g/dL Normal 3.4-5.0 [facility] Comment on above: Performed By: #### P REGU #### [facility] [address] [place] [address] Dr. Sara Rey Albumin/Globulin [Mass ratio] 1.1 {ratio} Normal [facility] Comment on above: Performed By: #### P REGU #### [facility] [address] [place] [address] Dr. Sara Rey ALP [Catalytic activity/Vol] 60 U/L Normal 46-116 [facility] Comment on above: Performed By: #### P REGU #### [facility] [address] [place] [address] Dr. Sara Rey ALT [Catalytic activity/Vol] 167 U/L Critically high 14-59 [facility] Comment on above: Performed By: #### P REGU #### [facility] [address] [place] [address] Dr. Sara Rey Anion gap [Moles/Vol] 10.9 mmol/L Normal [facility] Comment on above: Performed By: #### P REGU #### [facility] [address] [place] [address] Dr. Sara Rey AST [Catalytic activity/Vol] 65 U/L Critically high 15-37 [facility] Comment on above: Performed By: #### P REGU #### [facility] [address] [address] [address] Sara Rey Bilirubin [Mass/Vol] 0.7 mg/dL Normal 0.2-1.0 [facility] Comment on above: Performed By: #### P REGU #### [facility] [address] [place] [address] Dr. Sara Rey Calcium [Mass/Vol] 9.3 mg/dL Normal 8.5-10.1 [facility] Comment on above: Performed By: #### P REGU #### [facility] [address] [place] [address] Dr. Sara Rey Chloride [Moles/Vol] 105 mmol/L Normal 98-107 [facility] Comment on above: Performed By: #### P REGU #### [facility] [address] [place] [address] Dr. Sara Rey CO2 [Moles/Vol] 25.1 mmol/L Normal 21.0-32.0 [facility] Comment on above: Performed By: #### P REGU #### [facility] [address] [place] [address] Dr. Sara Rey Creatinine [Mass/Vol] 0.66 mg/dL Normal 0.55-1.02 [facility] Comment on above: Performed By: #### P REGU #### [facility] [address] [place] [address] Dr. Sara Rey EGFR-AF BOLIVIAN >60 Normal >=[address] [facility] Comment on above: Performed By: #### P REGU #### [facility] [address] [place] [address] Dr. Sara Rey EGFR-NON AF BOLIVIAN >60 Normal >=60 [facility] Comment on above: Performed By: #### P REGU #### [facility] [address] [place] [address] Dr. Sara Rey Globulin (S) [Mass/Vol] 3.5 g/dL Normal T [facility] Comment on above: Performed By: #### P REGU #### [facility] [address] [place] [address] Dr. Sara Rey Glucose [Mass/Vol] 98 mg/dL Normal 74-[address] [facility] Comment on above: Performed By: #### P REGU #### [facility] [address] [place] [address] Dr. Sara Rey Potassium [Moles/Vol] 4.0 mmol/L Normal 3.5-5.[address] [facility] Comment on above: Performed By: #### P REGU #### [facility] [address] [place] [address] Dr. Sara Rey Protein [Mass/Vol] 7.3 g/dL Normal 6.4-8.[address] [facility] Comment on above: Performed By: #### P REGU #### [facility] [address] [place] [address] Dr. Sara Rey Sodium [Moles/Vol] 137 mmol/L Normal 136-145 [facility] Comment on above: Performed By: #### P REGU #### [facility] [address] [place] [address] Dr. Sara Rey Urea nitrogen [Mass/Vol] 8.0 mg/dL Normal 7.0-18.0 [facility] Comment on above: Performed By: #### P REGU #### [facility] [address] [place] [address] Dr. Sara Rey Urea nitrogen/Creatinine [Mass ratio] 12.1 mg/mg Normal [facility] Comment on above: Performed By: #### P REGU #### [facility] [address] [place] [address] Dr. Sara Rey URINE MICROSCOPIC ONLYon BACTERIA NONE SEEN Normal NONE SEEN [facility] Comment on above: Performed By: #### RAYMOND PACHECO #### [facility] [address] [place] [address] Dr. Sara Rey Bacteria identified Cx Nom (U) NOT INDICATED Normal [facility] Comment on above: Performed By: #### INOCENTE PACHECORO #### [facility] [address] [place] [address] Dr. Sara Rey CAST NONE SEEN Normal NONE SEEN [facility] Comment on above: Performed By: #### E RUR, UMICRO #### [facility] [address] [place] [address] Dr. Sara Rey Crystals LM Nom (Urine sed) NONE SEEN Normal NONE SEEN [facility] Comment on above: Performed By: #### E RUR, UMICRO #### [facility] [address] [place] [address] Dr. Sara Rey Epithelial cells LM Ql (Urine sed) MODERATE Abnormal NONE SEEN /RARE [facility] Comment on above: Performed By: #### E RUR, UMICRO #### [facility] [address] [place] [address] Dr. Sara Rey MUCOUS TRACE Abnormal NONE SEEN [facility] Comment on above: Performed By: #### E RUR, UMICRO #### [facility] [address] [place] [address] Dr. Sara Rey RBC 2-5 Abnormal 0-[address] [facility] Comment on above: Performed By: #### E RUR, UMICRO #### [facility] [address] [place] [address] Dr. Sara Rey WBC 0-2 Abnormal NONE SEEN [facility] Comment on above: Performed By: #### E RUR, UMICRO #### [facility] [address] [place] [address] Dr. Sara Rey US PELVIS TRANSVAGon 07-28-2 022 US PELVIS TRANSVAG EXAMINATION: US PELV IS TRANSVAG HISTORY: Torsion of ovary ; intermittent acute left pelvic pain COMPARISON: No relevant comparison available. TECHNIQUE: Transabdominal and transvaginal sonographic examination. FINDINGS: UTERUS: Small septation within endometrial cavity of fundus. Uterus size: 6.8 x 4.0 x 2.5 cm ENDOMETRIUM: Normal homogeneous appearance. Endometrial thickness: 4 mm RIGHT OVARY: Normal size and appearance. Duplex Doppler demonstrates normal waveform and flow; resistive index 0.6. Ovary size: 4.4 x 2.4 x 2.3 cm LEFT OVARY: Normal size and appearance. Duplex Doppler demonstrates normal waveform and flow; resistive index 0.6. Ovary size: 3.8 x 2.7 x 1.8 cm CUL-DE-SAC: Unremarkable. No significant free fluid. BLADDER: Unremarkable. OTHER: Slightly prominent vessels within left adnexa; possible pelvic vascular congestion. IMPRESSION: 1. Normal appearance of ovaries; no evidence of torsion. 2. No acute findings to account for patient's symptoms. Electronically authenticated by: SANDRITA OROPEZA Date: 2022-04-24 16:[address] [facility] CHLAMYDIA/GONOCOCCUS MARCELLA (SW AB/URINE/PAPon 03-06-2022 Chlamydia trachomatis, MARCELLA Negative Normal Negative [facility] Comment on above: Performed By: #### E CHARLOTTE UMICRO #### [facility] [address] [address] [address] Sara Rey Neisseria gonorrhoeae, MARCELLA Negative Normal Negative [facility] Comment on above: Performed By: #### E [place] UMICRO #### [facility] [address] [place] [address] Dr. Sara Rey CULTURE URINEon 03-05-2022 CULTURE URINE Culture Observations : GREATER THAN TWO ORGANISMS PRESENT. PLEASE RESUBMIT CLEAN CATCH MID-STREAM URINE IF CLINICALLY INDICATED. Normal [facility] Comment on above: Performed By: #### B MP, LIVER, PREGQNT #### [facility] [address] [place] [address] Dr. Sara Rey ER URINE PROFILEon 2 Bilirubin Ql (U) SMALL Abnormal NEGATIVE [facility] Comment on above: Performed By: #### H IV12 #### [facility] [address] [address] [address] Sara Rey Clarity (U) CLEAR Normal CLEAR [facility] Comment on above: Performed By: #### H IV12 #### [facility] [address] [place] [address] Dr. Sara Rey Color (U) YELLOW Normal YELLOW [facility] Comment on above: Performed By: #### H IV12 #### [facility] [address] [place] [address] Dr. Sara Rey ERUAHD A micrscopic examina tion will be performed if indicated. Normal [facility] Comment on above: Performed By: #### H IV12 #### [facility] [address] [address] [address] Sara Rey Glucose Ql (U) Negative Normal NEGATIVE [facility] Comment on above: Performed By: #### H IV12 #### [facility] [address] [place] [address] Dr. Sara Rey Hemoglobin Ql (U) TRACE-INTACT Abnormal NEGATIVE [facility] Comment on above: Performed By: #### H IV12 #### [facility] [address] [address] [address] Sara Rey Ketones Ql (U) TRACE Abnormal NEGATIVE [facility] Comment on above: Performed By: #### H IV12 #### [facility] [address] [place] [address] Dr. Sara Rey LEUKOCYTES MODERATE Abnormal NEGATIVE [facility] Comment on above: Performed By: #### H IV12 #### [facility] [address] [place] [address] Dr. Sara Rey Nitrite Ql (U) Negative Normal NEGATIVE [facility] Comment on above: Performed By: #### H IV12 #### [facility] [address] [place] [address] Dr. Sara Rey pH (U) 5.5 [pH] Normal 5-9 [facility] Comment on above: Performed By: #### H IV12 #### [facility] [address] [place] [address] Dr. Sara Rey SPEC GRAVITY >=1.030 Abnormal 1.005-<=1. 025 [facility] Comment on above: Performed By: #### H IV12 #### [facility] [address] [place] [address] Dr. Sara Rey UA PROTEIN TRACE Normal NEGATIVE/ TRACE [facility] Comment on above: Performed By: #### H IV12 #### [facility] [address] [place] [address] Dr. Sara Rey UR MICRO IND INDICATED Normal [facility] Comment on above: Performed By: #### H IV12 #### [facility] [address] [place] [address] Dr. Sara Rey Urobilinogen Qn (U) 2.0 {Jose'U}/dL Abnormal 0.2 - 1. [address] [facility] Comment on above: Performed By: #### H IV12 #### [facility] [address] [place] [address] Dr. Sara Rey URINE MICROSCOPIC ONLYon BACTERIA MODERATE Abnormal NONE SEEN [facility] Comment on above: Performed By: #### C BC #### [facility] [address] [place] [address] Dr. Sara Rey Bacteria identified Cx Nom (U) INDICATED Normal [facility] Comment on above: Performed By: #### C BC #### [facility] [address] [place] [address] Dr. Sara Rey CAST NONE SEEN Normal NONE SEEN [facility] Comment on above: Performed By: #### C BC #### [facility] [address] [place] [address] Dr. Sara Rey Crystals LM Nom (Urine sed) NONE SEEN Normal NONE SEEN [facility] Comment on above: Performed By: #### C BC #### [facility] [address] [place] [address] Dr. Sara Rey Epithelial cells LM Ql (Urine sed) FEW Abnormal NONE SEEN /RARE [facility] Comment on above: Performed By: #### C BC #### [facility] [address] [place] [address] Dr. Sara Rey MUCOUS NONE SEEN Normal NONE SEEN [facility] Comment on above: Performed By: #### C BC #### [facility] [address] [place] [address] Dr. Sara Rey RBC 10-20 Abnormal 0-[address] [facility] Comment on above: Performed By: #### C BC #### [facility] [address] [place] [address] Dr. Sara Rey TRICH SEEN Abnormal NONE SEEN [facility] Comment on above: Performed By: #### C BC #### [facility] [address] [place], [place] [id number] Dr. Sara Rey WBC 5-10 Abnormal NONE SEEN [facility] Comment on above: Performed By: #### C BC #### [facility] [address] [place] [address] Dr. Sara Rey WET PREPon 03-04-2022 CLUE CELLS NONE SEEN Normal NONE SEEN [facility] Comment on above: Performed By: #### H IV12 #### [facility] [address] [place] [address] Dr. Sara Rey FUNGAL ELEMENTS NONE SEEN Normal NONE SEEN [facility] Comment on above: Performed By: #### H IV12 #### [facility] [address] [place] [address] Dr. Sara Rey RBC -WET PREP NONE SEEN Normal NONE SEEN [facility] Comment on above: Performed By: #### H IV12 #### [facility] [address] [place] [address] Dr. Sara Rey TRICHOMONAS SEEN Abnormal NONE SEEN [facility] Comment on above: Performed By: #### H IV12 #### [facility] [address] [place] [address] Dr. Sara Rey WBC- WET PREP RARE Abnormal NONE SEEN [facility] Comment on above: Performed By: #### H IV12 #### [facility] [address] [place] [address] Dr. Sara Rey WET PREP BACTERIA NONE SEEN Normal NONE SEEN [facility] Comment on above: Performed By: #### H IV12 #### [facility] [address] [place] [address] Dr. Sara Rey C.trachomatis N.gonorrhoeae DNAon 10-08-2020 C. trachomatis DNA MARCELLA+probe Ql (Genital specimen) Negative NEGATIVE [facility], [place] Comment on above: CHLAMYDIA TRACHOMATI S DNA not detected by nucleic acid amplification. This test is intended for medical purposes only and is not valid for the evaluation of suspected sexual abuse or for other forensic purposes. In certain contexts, culture may be required to meet applicable laws and regulations for diagnosis of C. trachomatis and N. gonorrhoeae infections. Per 2014 CDC recommendations, this test does not include confirmation of positive results by an alternative nucleic acid target. N. gonorrhoeae DNA Negative NEGATIVE [facility], [place] Comment on above: NEISSERIA GONORRHOEA E DNA not detected by nucleic acid amplification. This test is intended for medical purposes only and is not valid for the evaluation of suspected sexual abuse or for other forensic purposes. In certain contexts, culture may be required to meet applicable laws and regulations for diagnosis of C. trachomatis and N. gonorrhoeae infections. Per 2014 CDC recommendations, this test does not include confirmation of positive results by an alternative nucleic acid target. Specimen Description .CERVIX [facility], [place] Chlamydia/GC,DNA Ampon 10-08 Chlamydia Probe Negative Normal NEG [facility] Comment on above: Result Comment: CHLA MYDIA TRACHOMATIS DNA not detected by nucleic acid amplification. This test is intended for medical purposes only and is not valid for the evaluation of suspected sexual abuse or for other forensic purposes. In certain contexts, culture may be required to meet applicable laws and regulations for diagnosis of C. trachomatis and N. gonorrhoeae infections. Per 2014 CDC recommendations, this test does not include confirmation of positive results by an alternative nucleic acid target. Performed By: #### A LCB #### [facility] [address] [place] [address] Medical Delivery Technician: Pj James MD Gonorrhea Probe Negative Normal NEG [facility] Comment on above: Result Comment: NEIS SERIA GONORRHOEAE DNA not detected by nucleic acid amplification. This test is intended for medical purposes only and is not valid for the evaluation of suspected sexual abuse or for other forensic purposes. In certain contexts, culture may be required to meet applicable laws and regulations for diagnosis of C. trachomatis and N. gonorrhoeae infections. Per 2014 CDC recommendations, this test does not include confirmation of positive results by an alternative nucleic acid target. Performed By: #### A LCB #### [facility] [address] [place] [address] Medical Delivery Technician: Pj James MD Acetaminophenon 10-06-2020 Acetaminophen [Mass/Vol] <5 Low 10-30 [facility] Comment on above: Performed By: #### A LCB #### [facility] [address] [place] [address] Medical Delivery Technician: Pj James MD CBC Auto Differentialon Basophils (Bld) [#/Vol] 0.04 10*3/uL [place] Basophils/100 WBC (Bld) 1 % 0 - 2 % M [place], [place] Differential Type NOT REPORTED [place] Eosinophils (Bld) [#/Vol] 0.06 10*3/uL [place] Eosinophils/100 WBC (Bld) 1 % 1 - 4 % [place] Erythrocyte distribution width (RBC) [Ratio] 12.6 % 11.8 - 14.4 % [place] Hematocrit (Bld) [Volume fraction] 43.3 % 36.3 - 47.1 % [place] Hemoglobin (Bld) [Mass/Vol] 14.6 g/dL 11.9 - 15.1 g/dL [place] Immature granulocytes (Bld) [#/Vol] 0 % 0 [place] Immature granulocytes (Bld) [#/Vol] 10*3/uL [place] Interpretation and review of laboratory results Abnormal [place] Lymphocytes (Bld) [#/Vol] 1.92 10*3/uL [place] Lymphocytes/100 WBC (Bld) 23 % Low 24 - 43 % [place] MCH (RBC) [Entitic mass] 29.9 pg 25. 2 - 33.5 pg [place] MCHC (RBC) [Mass/Vol] 33.7 g/dL 28.4 - 34.8 g/dL [place] MCV (RBC) [Entitic vol] 88.5 fL 82.6 - 102.9 fL [place] Monocytes (Bld) [#/Vol] 0.55 10*3/uL [place] Monocytes/100 WBC (Bld) 7 % 3 - 12 % [place] Platelet mean volume (Bld) [Entitic vol] 10.2 fL 8.1 - 13.5 fL [place] Platelets (Bld) [#/Vol] NOT REPORTED [place] Platelets (Bld) [#/Vol] 264 10*3/uL [place] RBC (Bld) [#/Vol] 4.89 10*6/uL 3.95 - 5.11 m/uL [place] RBC morphology finding Nom (Bld) NOT REPORTED [place] Segmented neutrophils/100 WBC (Bld) 68 % High 36 - 65 % [place] Segs Absolute 5.70 [place] WBC (Bld) [#/Vol] 8.3 10*3/uL [place] WBC (Bld) [#/Vol] 0.0 10*3/uL 0.0 per 100 WBC [place] WBC Morphology NOT REPORTED [place] CBC with Diffon 10-06-2020 Abs. Basophil 0.03 k/uL Normal 0.00-0.20 [facility] Comment on above: Performed By: #### A LCB #### [facility] [address] [address] Medical Delivery Technician: Pj James MD Abs.Imm.Granulocyte <0.03 Normal 0.00-0.30 [facility] Comment on above: Performed By: #### A LCB #### [facility] [address] [address] Medical Delivery Technician: Pj James MD Abs.Neutrophil (Seg) 4.22 k/uL Normal 1.50-8.10 [facility] Comment on above: Performed By: #### A LCB #### [facility] [address] [place] [address] Medical Delivery Technician: Pj James MD Basophils/100 WBC (Bld) 0 % Normal 0-2 M [facility] Comment on above: Performed By: #### A LCB #### [facility] [address] [place] [address] Medical Delivery Technician: Pj James MD Eosinophils (Bld) [#/Vol] 0.06 10*3/uL Normal 0.00-0.44 [facility] Comment on above: Performed By: #### A LCB #### [address] [place] [address] Medical Delivery Technician: Pj James MD Eosinophils/100 WBC (Bld) 1 % Normal 1-4 [facility] Comment on above: Performed By: #### A LCB #### [address] [place], [facility] Medical Delivery Technician: Pj James MD Erythrocyte distribution width (RBC) [Ratio] 12.6 % Normal 11.8-14.4 [facility] Comment on above: Performed By: #### A LCB #### [address] [place], [facility] Medical Delivery Technician: Pj James MD Hematocrit (Bld) [Volume fraction] 43.4 % Normal 36.3-47.1 [facility] Comment on above: Performed By: #### A LCB #### [address] [place], [facility] Medical Delivery Technician: Pj James MD Hemoglobin (Bld) [Mass/Vol] 14.4 g/dL Normal 11.9-15.1 [facility] Comment on above: Performed By: #### A LCB #### [address] [place], [place] [address] Medical Delivery Technician: Pj James MD Immature granulocytes (Bld) [#/Vol] 0 % Normal 0 [facility] Comment on above: Performed By: #### A LCB #### [address] [place], [place] [address] Medical Delivery Technician: Pj James MD Lymphocytes (Bld) [#/Vol] 2.60 10*3/uL Normal 1.10-3.70 [facility] Comment on above: Performed By: #### A LCB #### [facility] [address] [place], [facility] Medical Delivery Technician: Pj James MD Lymphocytes/100 WBC (Bld) 34 % Normal 24-43 [facility] Comment on above: Performed By: #### A LCB #### [facility] [address] [place], [facility] Medical Delivery Technician: Pj James MD MCH (RBC) [Entitic mass] 29.8 pg Normal 25.2-33.5 [facility] Comment on above: Performed By: #### A LCB #### [address] [place] [address] Medical Delivery Technician: Pj James MD MCHC (RBC) [Mass/Vol] 33.2 g/dL Normal 28.4-34.8 [facility] [place] Comment on above: Performed By: #### A LCB #### [address] [place], [place] [address] Medical Delivery Technician: Pj James MD MCV (RBC) [Entitic vol] 89.7 fL Normal 82.6-102.9 [facility] Comment on above: Performed By: #### A LCB #### [address] [place], [facility] Medical Delivery Technician: Pj James MD Monocytes (Bld) [#/Vol] 0.62 10*3/uL Normal 0.10-1.20 [facility] Comment on above: Performed By: #### A LCB #### [address] [place] [address] Medical Delivery Technician: Pj James MD Monocytes/100 WBC (Bld) 8 % Normal 3-12 M [facility] Comment on above: Performed By: #### A LCB #### [facility] [address] [place], [place] [address] Medical Delivery Technician: Pj James MD Neutrophil (Seg) 57 % Normal 36-65 [facility] Comment on above: Performed By: #### A LCB #### [facility] [address] [place], [place] [address] Medical Delivery Technician: Pj James MD NRBC Automated 0.0 per 100 WBC Normal 0.0 [facility] Comment on above: Performed By: #### A LCB #### [facility] [address] [place], [place] [address] Medical Delivery Technician: Pj James MD Platelet mean volume (Bld) [Entitic vol] 10.2 fL Normal 8.1-13.5 [facility] Comment on above: Performed By: #### A LCB #### [address] [place], [place] [address] ([address] Medical Delivery Technician: Pj James MD Platelets (Bld) [#/Vol] 278 10*3/uL Normal 138-453 [facility] Comment on above: Performed By: #### A LCB #### [address] [place], [place] [address]83 Medical Delivery Technician: Pj James MD RBC (Bld) [#/Vol] 4.84 10*6/uL Normal 3.95-5.11 [facility] Comment on above: Performed By: #### A LCB #### [facility] [address] [place], [place] [address] Medical Delivery Technician: Pj James MD WBC (Bld) [#/Vol] 7.6 10*3/uL Normal 3.5-11.3 [facility] Comment on above: Performed By: #### A LCB #### [facility] [address] [place] [address] Medical Delivery Technician: Pj James MD Auto Diff Performed NOT REPORTED Normal [facility] [place] Comment on above: Performed By: #### A LCB #### [address] [place] [address] Medical Delivery Technician: Pj James MD Platelets (Bld) [#/Vol] NOT REPORTED Normal [facility] Comment on above: Performed By: #### A LCB #### [address] [place] [address] Medical Delivery Technician: Pj James MD RBC morphology finding Nom (Bld) NOT REPORTED Normal [facility] Comment on above: Performed By: #### A LCB #### [address] [place] [address] Medical Delivery Technician: Pj James MD WBC Morphology NOT REPORTED Normal [facility] Comment on above: Performed By: #### A LCB #### [address] [place] [address] Medical Delivery Technician: jP James MD Abs. Basophil 0.04 k/uL Normal 0.00-0.20 [facility] Comment on above: Performed By: #### C MPX, CDP, LIP #### [address] [place] [address] Medical Delivery Technician: Pj James MD Abs.Imm.Granulocyte <0.03 Normal 0.00-0.30 [facility] Comment on above: Performed By: #### C MPX, CDP, LIP #### [address] [place] [id number] Medical Delivery Technician: Pj James MD Abs.Neutrophil (Seg) 5.70 k/uL Normal 1.50-8.10 [facility] Comment on above: Performed By: #### C MPX, CDP, LIP #### [address] [place] [address] Medical Delivery Technician: Pj James MD Basophils/100 WBC (Bld) 1 % Normal 0-2 M [facility] Comment on above: Performed By: #### C MPX, CDP, LIP #### [address] [place], [place] [address] Medical Delivery Technician: Pj James MD Eosinophils (Bld) [#/Vol] 0.06 10*3/uL Normal 0.00-0.44 [facility] Comment on above: Performed By: #### C MPX, CDP, LIP #### [facility] [address] [place], [place] [address] Medical Delivery Technician: Pj James MD Eosinophils/100 WBC (Bld) 1 % Normal 1-4 [facility] Comment on above: Performed By: #### C MPX, CDP, LIP #### [address] [place] [id number] Medical Delivery Technician: Pj James MD Erythrocyte distribution width (RBC) [Ratio] 12.6 % Normal 11.8-14.4 [facility] Comment on above: Performed By: #### C MPX, CDP, LIP #### [address] [place], [place] [address] Medical Delivery Technician: Pj James MD Hematocrit (Bld) [Volume fraction] 43.3 % Normal 36.3-47.1 [facility] Comment on above: Performed By: #### C MPX, CDP, LIP #### [address] [place], [place] [address] Medical Delivery Technician: Pj James MD Hemoglobin (Bld) [Mass/Vol] 14.6 g/dL Normal 11.9-15.1 [facility] Comment on above: Performed By: #### C MPX, CDP, LIP #### [address] [place] [address] Medical Delivery Technician: Pj James MD Immature granulocytes (Bld) [#/Vol] 0 % Normal 0 [facility] Comment on above: Performed By: #### C MPX, CDP, LIP #### [facility] [address] [place], [place] [address]83 Medical Delivery Technician: Pj James MD Lymphocytes (Bld) [#/Vol] 1.92 10*3/uL Normal 1.10-3.70 [facility] Comment on above: Performed By: #### C MPX, CDP, LIP #### [facility] [address] [place] [address] Medical Delivery Technician: Pj James MD Lymphocytes/100 WBC (Bld) 23 % Low 24-43 [facility] Comment on above: Performed By: #### C MPX, CDP, LIP #### [facility] [address] [place], [facility] Medical Delivery Technician: Pj James MD MCH (RBC) [Entitic mass] 29.9 pg Normal 25.2-33.5 [facility] Comment on above: Performed By: #### C MPX, CDP, LIP #### [address] [place], [place] [phone] Medical Delivery Technician: Pj James MD MCHC (RBC) [Mass/Vol] 33.7 g/dL Normal 28.4-34.8 [facility] [place] Comment on above: Performed By: #### C MPX, CDP, LIP #### [facility] [address] [place], [place] [address] Medical Delivery Technician: Pj James MD MCV (RBC) [Entitic vol] 88.5 fL Normal 82.6-102.9 M [facility] Comment on above: Performed By: #### C MPX, CDP, LIP #### [facility] [address] [place] [address] Medical Delivery Technician: Pj James MD Monocytes (Bld) [#/Vol] 0.55 10*3/uL Normal 0.10-1.20 [facility] Comment on above: Performed By: #### C MPX, CDP, LIP #### [facility] [address] [place], [place] [address]183 Medical Delivery Technician: Pj James MD Monocytes/100 WBC (Bld) 7 % Normal 3-12 M [facility] Comment on above: Performed By: #### C MPX, CDP, LIP #### [facility] [address] [place], [place] [phone] Medical Delivery Technician: Pj James MD Neutrophil (Seg) 68 % High 36-65 [facility] Comment on above: Performed By: #### C MPX, CDP, LIP #### [facility] [address] [place], [place] [address]83 Medical Delivery Technician: Pj James MD NRBC Automated 0.0 per 100 WBC Normal 0.0 [facility] Comment on above: Performed By: #### C MPX, CDP, LIP #### [facility] [address] [place], [place] [address]383 Medical Delivery Technician: Pj James MD Platelet mean volume (Bld) [Entitic vol] 10.2 fL Normal 8.1-13.5 [facility] Comment on above: Performed By: #### C MPX, CDP, LIP #### [facility] [address] [place] [address] Medical Delivery Technician: Pj James MD Platelets (Bld) [#/Vol] 264 10*3/uL Normal 138-453 [facility] Comment on above: Performed By: #### C MPX, CDP, LIP #### [facility] [address] [place] [address] Medical Delivery Technician: Pj James MD RBC (Bld) [#/Vol] 4.89 10*6/uL Normal 3.95-5.11 [facility] Comment on above: Performed By: #### C MPX, CDP, LIP #### [facility] [address] [place] [address] Medical Delivery Technician: Pj James MD WBC (Bld) [#/Vol] 8.3 10*3/uL Normal 3.5-11.3 [facility] Comment on above: Performed By: #### C MPX, CDP, LIP #### [facility] [address] [place] [address] Medical Delivery Technician: Pj James MD Auto Diff Performed NOT REPORTED Normal [facility] [place] Comment on above: Performed By: #### C MPX, CDP, LIP #### [facility] [address] [place] [address] Medical Delivery Technician: Pj James MD Platelets (Bld) [#/Vol] NOT REPORTED Normal [facility] Comment on above: Performed By: #### C MPX, CDP, LIP #### [facility] [address] [place] [address] Medical Delivery Technician: Pj James MD RBC morphology finding Nom (Bld) NOT REPORTED Normal [facility] Comment on above: Performed By: #### C MPX, CDP, LIP #### [facility] [address] [place] [address] Medical Delivery Technician: Pj James MD WBC Morphology NOT REPORTED Normal [facility] Comment on above: Performed By: #### C MPX, CDP, LIP #### [facility] [address] [place], [place] [address]83 Medical Delivery Technician: Pj James MD Comp Metabolic Pr/rfx MGon 0 10-06-2020 (cont.) Normal [facility] Comment on above: Result Comment: Aver age GFR for 20-29 years old: 116 mL/min/1.73sq m Chronic Kidney Disease: <60 mL/min/1.73sq m Kidney failure: <15 mL/min/1.73sq m eGFR calculated using average adult body mass. Additional eGFR calculator available at: http://www.[employer]rowdc[employer]/multiple_crcl_2012.htm Performed By: #### A LCB #### [facility] [address] [place], [place] [id number] Medical Delivery Technician: Pj James MD Albumin [Mass/Vol] 4.6 g/dL Normal 3.5-5.2 [facility] Comment on above: Performed By: #### A LCB #### [address] [place], [place] [id number] Medical Delivery Technician: Pj James MD Albumin/Globulin [Mass ratio] 1.5 {ratio} Normal 1.0-2.5 [facility] Comment on above: Performed By: #### A LCB #### [facility] [address] [place] [address] Dr[address] [place], [place] [id number] Medical Delivery Technician: Pj James MD Alkaline Phos 62 U/L Normal 35-104 [facility] Comment on above: Performed By: #### A LCB #### [address] [place], [place] [id number] Medical Delivery Technician: Pj James MD ALT [Catalytic activity/Vol] 14 U/L Normal 5-33 [facility] Comment on above: Performed By: #### A LCB #### [facility] [address] [place] [address] Dr[place], [place] [id number] Medical Delivery Technician: Pj James MD Anion gap [Moles/Vol] 8 mmol/L Low 9-17 [facility] Comment on above: Performed By: #### A LCB #### [address] [place], [place] 4870383 Medical Delivery Technician: Pj James MD AST [Catalytic activity/Vol] 19 U/L Normal <32 [facility] Comment on above: Performed By: #### A LCB #### [facility] [address] [place], [place] 1219583 Medical Delivery Technician: Pj James MD Bilirubin Ql (U) 0.35 mg/dL Normal 0.3-1.2 [facility] Comment on above: Performed By: #### A LCB #### [facility] [address] [place] [id number] Medical Delivery Technician: Pj James MD BUN/CRE Ratio 19 Normal 9-20 [facility] Comment on above: Performed By: #### A LCB #### [facility] [address] [place], [place] 449[address]83 Medical Delivery Technician: Pj James MD Calcium [Mass/Vol] 10.1 mg/dL Normal 8.6-10.4 [facility] Comment on above: Performed By: #### A LCB #### [facility] [address] [place] [address] [place], [place] [id number] Medical Delivery Technician: Pj James MD Chloride [Moles/Vol] 105 mmol/L Normal 98-107 [facility] Comment on above: Performed By: #### A LCB #### [facility] [address] [place] [address] Dr[place], [place] [id number] Medical Delivery Technician: Pj James MD CO2 [Moles/Vol] 25 mmol/L Normal 20-31 [facility] Comment on above: Performed By: #### A LCB #### [facility] [address] [place], [place] 3516383 Medical Delivery Technician: Pj James MD Creatinine [Mass/Vol] 0.62 mg/dL Normal 0.50-0.90 [facility] [place] Comment on above: Performed By: #### A LCB #### [facility] [address] [place] [address] Medical Delivery Technician: Pj James MD GFR, Amer >60 Normal >60 [facility] Comment on above: Performed By: #### A LCB #### [facility] [address] [place] [id number] Medical Delivery Technician: Pj James MD GFR,non Amer >60 Normal >60 [facility] Comment on above: Performed By: #### A LCB #### [facility] [address] [place], [place] 1131483 Medical Delivery Technician: Pj James MD Glucose [Mass/Vol] 118 mg/dL High 70-99 [facility] Comment on above: Performed By: #### A LCB #### [facility] [address] [place], [place] 2262883 Medical Delivery Technician: Pj James MD Potassium [Moles/Vol] 3.7 mmol/L Normal 3.7-5.3 [facility] Comment on above: Performed By: #### A LCB #### [facility] [address] [place], [place] 6415583 Medical Delivery Technician: Pj James MD Protein [Mass/Vol] 7.7 g/dL Normal 6.4-8.3 [facility] Comment on above: Performed By: #### A LCB #### [facility] [address] [place] [address] Dr. [place] [id number] Medical Delivery Technician: Pj James MD Sodium [Moles/Vol] 138 mmol/L Normal 135-144 [facility] Comment on above: Performed By: #### A LCB #### [facility] [address] [place] [address] Medical Delivery Technician: Pj James MD Staging: Normal [facility] Comment on above: Result Comment: Stag e 1: Some kidney damage normal GFR Stage 2: Mild kidney damage GFR 60-89 Stage 3: Moderate kidney damage GFR 30-59 Stage 4: Severe kidney damage GFR 15-29 Stage 5: Severe kidney damage GFR <15 ESRD - chronic treatment by dialysis or transplant Performed By: #### A LCB #### [facility] [address] [place] [address] Medical Delivery Technician: Pj James MD Urea nitrogen [Mass/Vol] 12 mg/dL Normal 6-20 [facility] Comment on above: Performed By: #### A LCB #### [facility] [address] [place] [address] Medical Delivery Technician: Pj James MD (cont.) [facility] Comment on above: Result Comment: Aver age GFR for 20-29 years old: 116 mL/min/1.73sq m Chronic Kidney Disease: <60 mL/min/1.73sq m Kidney failure: <15 mL/min/1.73sq m eGFR calculated using average adult body mass. Additional eGFR calculator available at: http://www.[employer]/multiple_crcl_2011.htm Performed By: #### C MPX, CDP, LIP #### [address] [place] [address] Medical Delivery Technician: Pj James MD Albumin [Mass/Vol] 4.5 g/dL Normal 3.5-5.2 [facility] Comment on above: Performed By: #### C MPX, CDP, LIP #### [address] [place] [address] Medical Delivery Technician: Pj James MD Albumin/Globulin [Mass ratio] 1.6 {ratio} Normal 1.0-2.5 [facility] Comment on above: Performed By: #### C MPX, CDP, LIP #### [facility] [address] [place] [address] Medical Delivery Technician: Pj James MD Alkaline Phos 59 U/L Normal 35-104 [facility] Comment on above: Performed By: #### C MPX, CDP, LIP #### [address] [place], [place] [id number] Medical Delivery Technician: Pj James MD ALT [Catalytic activity/Vol] 14 U/L Normal 5-33 [facility] Comment on above: Performed By: #### C MPX, CDP, LIP #### [facility] [address] [place], [place] [phone] Medical Delivery Technician: Pj James MD Anion gap [Moles/Vol] 10 mmol/L Normal 9-17 [facility] Comment on above: Performed By: #### C MPX, CDP, LIP #### [facility] [address] [place], [place] [id number] Medical Delivery Technician: Pj James MD AST [Catalytic activity/Vol] 18 U/L Normal <32 [facility] Comment on above: Performed By: #### C MPX, CDP, LIP #### [facility] [address] [place], [place] 2048083 Medical Delivery Technician: Pj James MD Bilirubin Ql (U) 0.73 mg/dL Normal 0.3-1.2 [facility] Comment on above: Performed By: #### C MPX, CDP, LIP #### [facility] [address] [place], [place] [phone] Medical Delivery Technician: Pj James MD BUN/CRE Ratio 21 High 9-20 [facility] Comment on above: Performed By: #### C MPX, CDP, LIP #### [facility] [address] [place], [place] 0301383 Medical Delivery Technician: Pj James MD Calcium [Mass/Vol] 10.2 mg/dL Normal 8.6-10.4 [facility] Comment on above: Performed By: #### C MPX, CDP, LIP #### [facility] [address] [place], [place] 4204683 Medical Delivery Technician: Pj James MD Chloride [Moles/Vol] 102 mmol/L Normal 98-107 [facility] Comment on above: Performed By: #### C MPX, CDP, LIP #### [facility] [address] [place], [place] [phone] Medical Delivery Technician: Pj James MD CO2 [Moles/Vol] 24 mmol/L Normal 20-31 [facility] Comment on above: Performed By: #### C MPX, CDP, LIP #### [facility] [address] [place], [place] 8032883 Medical Delivery Technician: Pj James MD Creatinine [Mass/Vol] 0.62 mg/dL Normal 0.50-0.90 [facility] [place] Comment on above: Performed By: #### C MPX, CDP, LIP #### [facility] [address] [place], [place] [phone] Medical Delivery Technician: Pj James MD GFR, Amer >60 Normal >60 [facility] Comment on above: Performed By: #### C MPX, CDP, LIP #### [facility] [address] [place], [place] 7878883 Medical Delivery Technician: Pj James MD GFR,non Amer >60 Normal >60 [facility] Comment on above: Performed By: #### C MPX, CDP, LIP #### [facility] [address] [place], [place] 5012983 Medical Delivery Technician: Pj James MD Glucose [Mass/Vol] 158 mg/dL High 70-99 [facility] Comment on above: Performed By: #### C MPX, CDP, LIP #### [facility] [address] [place] [address] Medical Delivery Technician: Pj James MD Potassium [Moles/Vol] 3.6 mmol/L Low 3.7-5.3 [facility] Comment on above: Performed By: #### C MPX, CDP, LIP #### [facility] [address] [place] [address] [place] [address] Medical Delivery Technician: Pj James MD Protein [Mass/Vol] 7.4 g/dL Normal 6.4-8.3 [facility] Comment on above: Performed By: #### C MPX, CDP, LIP #### [facility] [address] [place] [address] [place] [address] Medical Delivery Technician: Pj James MD Sodium [Moles/Vol] 136 mmol/L Normal 135-144 [facility] Comment on above: Performed By: #### C MPX, CDP, LIP #### [address] [place] [address] Medical Delivery Technician: Pj James MD Staging: Normal [facility] Comment on above: Result Comment: Stag e 1: Some kidney damage normal GFR Stage 2: Mild kidney damage GFR 60-89 Stage 3: Moderate kidney damage GFR 30-59 Stage 4: Severe kidney damage GFR 15-29 Stage 5: Severe kidney damage GFR <15 ESRD - chronic treatment by dialysis or transplant Performed By: #### C MPX, CDP, LIP #### [address] [place] [address] Medical Delivery Technician: Pj James MD Urea nitrogen [Mass/Vol] 13 mg/dL Normal 6-20 [facility] Comment on above: Performed By: #### C MPX, CDP, LIP #### [address] [place] [address] Medical Delivery Technician: Pj James MD Comprehensive Metabolic Pane l w/ Reflex to MGon 10-06-2020 Albumin [Mass/Vol] 4.5 g/dL 3.5 - 5.2 g/dL [place] Albumin/Globulin [Mass ratio] 1.6 {ratio} [place] ALP [Catalytic activity/Vol] 59 U/L 35 - 104 U/L [place] ALT [Catalytic activity/Vol] 14 U/L 5 - 33 U/L [place] Anion gap [Moles/Vol] 10 mmol/L 9 - 17 mmol/L [place] AST [Catalytic activity/Vol] 18 U/L <32 [place] Bilirubin Ql (U) 0.73 mg/dL 0.3 - 1.2 mg/dL [place] Bun/Cre Ratio 21 High [place] Calcium [Mass/Vol] 10.2 mg/dL 8.6 - 10. 4 mg/dL [place] Chloride [Moles/Vol] 102 mmol/L 98 - 10 7 mmol/L [place] CO2 [Moles/Vol] 24 mmol/L 20 - 31 mmol/L [place] Creatinine [Mass/Vol] 0.62 mg/dL 0.5 - 0.9 mg/dL [place] GFR >60 >60 mL/min [place] GFR Non- >60 >60 mL/min [place] Glucose [Mass/Vol] 158 mg/dL High 70 - 99 mg/dL [place] Interpretation and review of laboratory results Abnormal [place] Potassium [Moles/Vol] 3.6 mmol/L Low 3.7 - 5.3 mmol/L [place] Protein [Mass/Vol] 7.4 g/dL 6.4 - 8.3 g/dL [place] Sodium [Moles/Vol] 136 mmol/L 135 - 144 mmol/L [place] Urea nitrogen [Mass/Vol] 13 mg/dL 6 - 20 mg/dL [place] Drugon 10-06-2020 Ethanol [Mass/Vol] mg/dL <10 mg/dL [place] Drug Scr, Abuse, Uron 2020 Amphetamine(s),Ur Negative Normal NEG [facility] Comment on above: Performed By: #### D AU #### [facility] [address] [place] [address] Medical Delivery Technician: Pj James MD Barbiturate(s),Ur Negative Normal NEG [facility] Comment on above: Performed By: #### D AU #### [facility] [address] [place], [place] 956[address]83 Medical Delivery Technician: Pj James MD Base excess Calc (Bld) [Moles/Vol] Negative Normal [facility] Comment on above: Performed By: #### D AU #### [facility] [address] [place], [place] [id number] Medical Delivery Technician: Pj James MD Benzodiazepine(s) Negative Normal [facility] Comment on above: Performed By: #### D AU #### [facility] [address] [place], [place] [id number] Medical Delivery Technician: Pj James MD Buprenorphrine, Ur Negative Normal [facility] Comment on above: Performed By: #### D AU #### [facility] [address] [place], [place] [id number] Medical Delivery Technician: Pj James MD Cannabinoid(s),Ur Negative Normal [facility] Comment on above: Performed By: #### D AU #### [address] [place], [place] 4972983 Medical Delivery Technician: Pj James MD Methadone Ql (U) Negative Normal [facility] Comment on above: Performed By: #### D AU #### [facility] [address] [place], [place] 3291583 Medical Delivery Technician: Pj James MD Methamphetamine, Ur Negative Normal [facility] Comment on above: Performed By: #### D AU #### [facility] [address] [place], [place] [id number] Medical Delivery Technician: Pj James MD Opiate(s), Ur Negative Normal [facility] Comment on above: Performed By: #### D AU #### [facility] [address] [place], [place] 6508783 Medical Delivery Technician: Pj James MD Oxycodone, Urine Negative Normal NEG [facility] Comment on above: Performed By: #### D AU #### [address] [place], [place] 2283983 Medical Delivery Technician: Pj James MD Phencyclidine, Ur Negative Normal NEG [facility] Comment on above: Performed By: #### D AU #### [facility] [address] [place] [address] Dr. [place], [place] 7623283 Medical Delivery Technician: Pj James MD Propoxyphene,Urine Negative Normal NEG [facility] Comment on above: Performed By: #### D AU #### [address] [place] [id number] Medical Delivery Technician: Pj James MD Tricyclic antidepressants Screen Ql (U) Negative Normal NEG [facility] Comment on above: Result Comment: Drug screen results are to be used for medical purposes only. All positive results are unconfirmed. Testing for employment or legal uses should be sent to a reference laboratory for confirmation. Performed By: #### D AU #### [address] [place], [facility] Medical Delivery Technician: Pj James MD Interpretive Info NOT REPORTED Normal [facility] Comment on above: Performed By: #### D AU #### [address] [place] [address] Medical Delivery Technician: Pj James MD MDMA, Urine NOT REPORTED Normal NEG [facility] Comment on above: Performed By: #### D AU #### [address] [place] [address] Medical Delivery Technician: Pj James MD Amphetamine(s),Ur Negative Normal NEG [facility] Comment on above: Performed By: #### U A, KEVANO, JES, [facility] #### [address] [place], [place] 4655783 Medical Delivery Technician: Pj James MD Barbiturate(s),Ur Negative Normal [facility] Comment on above: Performed By: #### U A, UMICAO, JES, UHCG #### [facility] [address] [place], [place] 8249483 Medical Delivery Technician: Pj James MD Base excess Calc (Bld) [Moles/Vol] Negative Normal [facility] Comment on above: Performed By: #### U A, UMICAO, JES, UHCG #### [facility] [address] [place] [address] [place] [address] Medical Delivery Technician: Pj James MD Benzodiazepine(s) Negative [facility] Comment on above: Performed By: #### U A, UMICAO, JES, UHCG #### [facility] [address] [place] [address] [place] [address] Medical Delivery Technician: Pj James MD Buprenorphrine, Ur Negative [facility] Comment on above: Performed By: #### U A, UMICAO, JES, UHCG #### [facility] [address] [place] [address] Dr[place], [place] [phone] Medical Delivery Technician: Pj James MD Cannabinoid(s),Ur Negative Normal [facility] Comment on above: Performed By: #### U A, UMICAO, JES, UHCG #### [facility] [address] [place] [address] Dr. [place], [place] 1880083 Medical Delivery Technician: Pj James MD Methadone Ql (U) Negative [facility] Comment on above: Performed By: #### U A, UMICAO, JES, UHCG #### [facility] [address] [place] [address] Dr. [place], [place] [phone] Medical Delivery Technician: Pj James MD Methamphetamine, Ur Negative Normal [facility] Comment on above: Performed By: #### U A, UMICAO, JES, UHCG #### [facility] [address] [place] [address] Dr[place], [place] [phone] Medical Delivery Technician: Pj James MD Opiate(s), Ur Negative Normal NEG [facility] Comment on above: Performed By: #### U A, UMICAO, JES, UHCG #### [facility] [address] [place] [address] Medical Delivery Technician: Pj James MD Oxycodone, Urine Negative Normal NEG [facility] Comment on above: Performed By: #### U A, UMICAO, JES, UHCG #### [facility] [address] [place] [address] Dr. [place], [place] 6819183 Medical Delivery Technician: Pj James MD Phencyclidine, Ur Negative Normal NEG [facility] Comment on above: Performed By: #### U A, UMICAO, JES, UHCG #### [facility] [address] [place] [address] Dr. [place], [place] [id number] Medical Delivery Technician: Pj James MD Propoxyphene,Urine Negative Normal [facility] Comment on above: Performed By: #### U A, UMICAO, JES, UHCG #### [facility] [address] [place] [address] Dr. [place], [place] [phone] Medical Delivery Technician: Pj James MD Tricyclic antidepressants Screen Ql (U) Negative Normal NEG [facility] Comment on above: Result Comment: Drug screen results are to be used for medical purposes only. All positive results are unconfirmed. Testing for employment or legal uses should be sent to a reference laboratory for confirmation. Performed By: #### U A, UMICAO, JES, UHCG #### [facility] [address] [place] [address] Dr. [place], [place] [phone] Medical Delivery Technician: Pj James MD Interpretive Info NOT REPORTED Normal [facility] Comment on above: Performed By: #### U A, LARRY PRINCEU, [facility] #### [facility] [address] [place] [address] Medical Delivery Technician: Pj James MD MDMA, Urine NOT REPORTED Normal NEG [facility] Comment on above: Performed By: #### U A, LARRY PRINCEU, [facility] #### [facility] [address] [place] [address] Medical Delivery Technician: Pj James MD Drug screen multi urineon Amphetamine Screen, Ur Negative NEGATIVE [facility] [place] Barbiturate Screen, Ur Negative NEGATIVE [facility] [place] Benzodiazepine Screen, Urine Negative NEGATIVE [facility] [place] Buprenorphine Urine Negative NEGATIVE [facility] [place] Cannabinoid Scrn, Ur Negative NEGATIVE [facility] [place] Cocaine Metabolite, Urine Negative NEGATIVE [facility] [place] MDMA, Urine NOT REPORTED NEGATIVE [facility] [place] Methadone Screen, Urine Negative NEGATIVE [facility] [place] Methamphetamine, Urine Negative NEGATIVE [facility] [place] Opiates, Urine Negative NEGATIVE [facility] [place] Oxycodone Screen, Ur Negative NEGATIVE [facility] [place] Phencyclidine, Urine Negative NEGATIVE [facility] [place] Propoxyphene, Urine Negative NEGATIVE [facility] [place] Test Information NOT REPORTED [facility] [place] Tricyclic Antidepressants, Urine Negative NEGATIVE [facility] [place] Comment on above: Drug screen results are to be used for medical purposes only. All positive results are unconfirmed. Testing for employment or legal uses should be sent to a reference laboratory for confirmation. Ethanol Alcoholon 10-06-2020 Ethanol [Mass/Vol] mg/dL Normal <10 [facility] Comment on above: Performed By: #### A LCB #### [facility] [address] [place] [address] [place] [address] Medical Delivery Technician: Pj James MD Ethanol percent <0.010 Normal <0.010 [facility] Comment on above: Performed By: #### A LCB #### [facility] [address] [address] Medical Delivery Technician: Pj James MD HCG, ,Urineon 10-06 Beta HCG ( test) Ql (U) Negative Normal NEG [facility] Comment on above: Result Comment: Spec imens with hCG levels near the threshold of the test (25 mIU/mL) may give a negative or indeterminate result. In such cases, another test should be performed with a new specimen in 48-72 hours. If early is suspected clinically in this setting, correlation with quantitative serum b-hCG level is suggested. [facility] [place] has confirmed the use of plasma for this test. This has not been cleared or approved by the U.S. Food and Drug Administration. The FDA has determined that such clearance is not necessary. Performed By: #### A LCB #### [facility] [address] [place] [address] Medical Delivery Technician: Pj James MD Beta HCG ( test) Ql (U) Negative Normal NEG [facility] Comment on above: Result Comment: Spec imens with hCG levels near the threshold of the test (25 mIU/mL) may give a negative or indeterminate result. In such cases, another test should be performed with a new specimen in 48-72 hours. If early is suspected clinically in this setting, correlation with quantitative serum b-hCG level is suggested. [facility] [place] has confirmed the use of plasma for this test. This has not been cleared or approved by the U.S. Food and Drug Administration. The FDA has determined that such clearance is not necessary. Performed By: #### U A, JES PRINCE, [facility] #### [facility] [address] [place] [address] Medical Delivery Technician: Pj James MD Hematologyon 10-06-2020 Basophils (Bld) [#/Vol] 0.03 10*3/uL [place] Basophils/100 WBC (Bld) 0 % 0 - 2 % [place] Eosinophils (Bld) [#/Vol] 0.06 10*3/uL [place] Eosinophils/100 WBC (Bld) 1 % 1 - 4 % [place] Hematocrit (Bld) [Volume fraction] 43.4 % 36.3 - 47.1 % [place] Hemoglobin (Bld) [Mass/Vol] 14.4 g/dL 11.9 - 15.1 g/dL [place] Lymphocytes (Bld) [#/Vol] 2.60 10*3/uL [place] Lymphocytes/100 WBC (Bld) 34 % 24 - 43 % [place] MCH (RBC) [Entitic mass] 29.8 pg 25. 2 - 33.5 pg [place] MCV (RBC) [Entitic vol] 89.7 fL 82.6 - 102.9 fL [place] Monocytes (Bld) [#/Vol] 0.62 10*3/uL [place] Monocytes/100 WBC (Bld) 8 % 3 - 12 % [place] Platelets (Bld) [#/Vol] NOT REPORTED [place] Platelets (Bld) [#/Vol] 278 10*3/uL [place] RBC (Bld) [#/Vol] 4.84 10*6/uL 3.95 - 5.11 m/uL [place] RBC morphology finding Nom (Bld) NOT REPORTED [place] WBC (Bld) [#/Vol] 7.6 10*3/uL [place] WBC (Bld) [#/Vol] 0.0 10*3/uL 0.0 per 100 [place] Lipaseon 10-06-2020 Lipase [Catalytic activity/Vol] 25 U/L Normal 13-60 [facility] Comment on above: Performed By: #### C MPX, CDP, LIP #### [facility] [address] [place] [address] Medical Delivery Technician: Pj James MD Metabolic Panelon 10-06-2020 Albumin [Mass/Vol] 4.6 g/dL 3.5 - 5.2 g/dL [place] ALP [Catalytic activity/Vol] 62 U/L 35 - 104 U/L [place] ALT [Catalytic activity/Vol] 14 U/L 5 - 33 U/L [place] Anion gap [Moles/Vol] 8 mmol/L Low 9 - 17 mmol/L [place] AST [Catalytic activity/Vol] 19 U/L <32 [place] Calcium [Mass/Vol] 10.1 mg/dL 8.6 - 10. 4 mg/dL [place] Chloride [Moles/Vol] 105 mmol/L 98 - 10 7 mmol/L [place] CO2 [Moles/Vol] 25 mmol/L 20 - 31 mmol/L [place] Creatinine [Mass/Vol] 0.62 mg/dL 0.5 - 0.9 mg/dL [place] GFR/1.73 sq M predicted among non-blacks MDRD (S/P/Bld) [Vol rate/Area] [place] Comment on above: Average GFR for 20-2 9 years old: 116 mL/min/1.73sq m Chronic Kidney Disease: <60 mL/min/1.73sq m Kidney failure: <15 mL/min/1.73sq m eGFR calculated using average adult body mass. Additional eGFR calculator available at: http://www.gBox/multiple_crcl_2012.htm Stage 1: Some kidney damage normal GFR Stage 2: Mild kidney damage GFR 60-89 Stage 3: Moderate kidney damage GFR 30-59 Stage 4: Severe kidney damage GFR 15-29 Stage 5: Severe kidney damage GFR <15 ESRD - chronic treatment by dialysis or transplant Glucose [Mass/Vol] 118 mg/dL High 70 - 99 mg/dL [place] Potassium [Moles/Vol] 3.7 mmol/L 3.7 - 5.3 mmol/L [place] Protein [Mass/Vol] 7.7 g/dL 6.4 - 8.3 g/dL [place] Sodium [Moles/Vol] 138 mmol/L 135 - 144 mmol/L [place] Urea nitrogen [Mass/Vol] 12 mg/dL 6 - 20 mg/dL [place] GFR/1.73 sq M predicted among non-blacks MDRD (S/P/Bld) [Vol rate/Area] [place] Comment on above: Average GFR for 20-2 9 years old: 116 mL/min/1.73sq m Chronic Kidney Disease: <60 mL/min/1.73sq m Kidney failure: <15 mL/min/1.73sq m eGFR calculated using average adult body mass. Additional eGFR calculator available at: http://www.gBox/multiple_crcl_2012.htm Stage 1: Some kidney damage normal GFR Stage 2: Mild kidney damage GFR 60-89 Stage 3: Moderate kidney damage GFR 30-59 Stage 4: Severe kidney damage GFR 15-29 Stage 5: Severe kidney damage GFR <15 ESRD - chronic treatment by dialysis or transplant Microscopic Urinalysison Amorphous, UA 2+ Abnormal None [place] Bacteria, UA 2+ Abnormal None [place] Casts UA NOT REPORTED /LPF [place] Crystals, UA NOT REPORTED None /HPF [place] Epithelial Cells UA 5 TO 10 [place] Interpretation and review of laboratory results Abnormal [place] Mucus, UA NOT REPORTED None [place] Other Observations UA NOT REPORTED NOT REQ. [place] RBC (U) [#/Vol] None [place] Renal Epithelial, UA NOT REPORTED 0 /HPF [place] Trichomonas, UA NOT REPORTED None [place] WBC, UA 5 TO 10 [place] Yeast, UA NOT REPORTED None [place] Otheron 10-06-2020 Albumin/Globulin [Mass ratio] 1.5 {ratio} [place] Bilirubin Ql (U) 0.35 mg/dL 0.3 - 1.2 mg/dL [place] Bun/Cre Ratio 19 [place] GFR >60 >60 mL/min [place] GFR Non- >60 >60 mL/min [place] Interpretation and review of laboratory results Abnormal [place] Salicylate Lvl <1 Low 3 - 10 mg/dL [place] Acetaminophen [Mass/Vol] <5 Low 10 - 30 ug/mL [place] Interpretation and review of laboratory results Abnormal [place] Ethanol percent <0.010 <0.010 % [place] Differential Type NOT REPORTED [place] Erythrocyte distribution width (RBC) [Ratio] 12.6 % 11.8 - 14.4 % [place] Immature granulocytes (Bld) [#/Vol] 0 % 0 [place] Immature granulocytes (Bld) [#/Vol] 10*3/uL [place] MCHC (RBC) [Mass/Vol] 33.2 g/dL 28.4 - 34.8 g/dL [place] Platelet mean volume (Bld) [Entitic vol] 10.2 fL 8.1 - 13.5 fL [place] Segmented neutrophils/100 WBC (Bld) 57 % 36 - 65 % [place] Segs Absolute 4.22 [place] WBC Morphology NOT REPORTED [place] Amphetamine Screen, Ur Negative NEGATIVE [place] Barbiturate Screen, Ur Negative NEGATIVE [place] Benzodiazepine Screen, Urine Negative NEGATIVE [place] Buprenorphine Urine Negative NEGATIVE [place] Cannabinoid Scrn, Ur Negative NEGATIVE [place] Cocaine Metabolite, Urine Negative NEGATIVE [place] MDMA, Urine NOT REPORTED NEGATIVE [place] Methadone Screen, Urine Negative NEGATIVE [place] Methamphetamine, Urine Negative NEGATIVE [place] Opiates, Urine Negative NEGATIVE [place] Oxycodone Screen, Ur Negative NEGATIVE [place] Phencyclidine, Urine Negative NEGATIVE [place] Propoxyphene, Urine Negative NEGATIVE [place] Test Information NOT REPORTED [place] Tricyclic Antidepressants, Urine Negative NEGATIVE [place] Comment on above: Drug screen results are to be used for medical purposes only. All positive results are unconfirmed. Testing for employment or legal uses should be sent to a reference laboratory for confirmation. Amorphous, UA 1+ Abnormal None [place] Bacteria, UA 1+ Abnormal None [place] Casts UA NOT REPORTED /LPF [place] Crystals, UA NOT REPORTED None /HPF [place] Epithelial Cells UA 5 TO 10 [place] Interpretation and review of laboratory results Abnormal [place] Mucus, UA NOT REPORTED None [place] Other Observations UA NOT REPORTED NOT REQ. [place] RBC (U) [#/Vol] 0 TO 2 [place] Renal Epithelial, UA NOT REPORTED 0 /HPF [place] Trichomonas, UA NOT REPORTED None [place] WBC, UA 5 TO 10 [place] Yeast, UA NOT REPORTED None [place] Bilirubin Urine Negative NEGATIVE [place] Color, UA YELLOW YELLOW [place] Glucose, Ur Negative NEGATIVE [place] Interpretation and review of laboratory results Abnormal [place] Nitrite, Urine Negative NEGATIVE [place] pH, UA 6.5 [place] Specific [place], UA 1.025 [place], [place] Turbidity UA CLEAR CLEAR [place] Urinalysis Comments NOT REPORTED [place] Urine Hgb Negative NEGATIVE [place] Urobilinogen, Urine Normal Normal [place] EXAMINATION: PELVIC ULTRASOUND; ULTRASOUND OF THE SCROTUM/TESTICLES WITH COLOR DOPPLER FLOW EVALUATION 10/06/2020 TECHNIQUE: Transvaginal pelvic ultrasound was performed. Color Doppler evaluation was performed. COMPARISON: None HISTORY: ORDERING SYSTEM PROVIDED HISTORY: Right lower quadrant pain, suspect ovarian torsion FINDINGS: Measurements: Uterus: 6.8 x 3.0 x 4.4 cm Endometrial stripe: 1 cm Right Ovary: 3.3 x 2.9 x 3.4 cm Left Ovary: 3.0 x 2.6 x 2.1 cm Ultrasound Findings: Uterus: Uterus demonstrates normal myometrial echotexture. Endometrial stripe: Endometrial stripe is within normal limits. Right Ovary: Right ovary demonstrates 2.1 cm benign cyst. There is normal arterial and venous doppler flow. Left Ovary: Left ovary is within normal limits. There is normal arterial and venous doppler flow. Free Fluid: No evidence of free fluid. [place], [place] Andrés, Mhpn Incoming R adiant Results From [facility] - 10/06/2020 12:34 PM EST EXAMINATION: PELVIC ULTRASOUND; ULTRASOUND OF THE SCROTUM/TESTICLES WITH COLOR DOPPLER FLOW EVALUATION 10/06/2020 TECHNIQUE: Transvaginal pelvic ultrasound was performed. Color Doppler evaluation was performed. COMPARISON: None HISTORY: ORDERING SYSTEM PROVIDED HISTORY: Right lower quadrant pain, suspect ovarian torsion FINDINGS: Measurements: Uterus: 6.8 x 3.0 x 4.4 cm Endometrial stripe: 1 cm Right Ovary: 3.3 x 2.9 x 3.4 cm Left Ovary: 3.0 x 2.6 x 2.1 cm Ultrasound Findings: Uterus: Uterus demonstrates normal myometrial echotexture. Endometrial stripe: Endometrial stripe is within normal limits. Right Ovary: Right ovary demonstrates 2.1 cm benign cyst. There is normal arterial and venous doppler flow. Left Ovary: Left ovary is within normal limits. There is normal arterial and venous doppler flow. Free Fluid: No evidence of free fluid. IMPRESSION: Right ovarian cyst as measured above for which no follow-up imaging is recommended, otherwise negative pelvic ultrasound with normal bilateral ovarian arteriovenous Doppler flow. [place] Right ovarian cyst a s measured above for which no follow-up imaging is recommended, otherwise negative pelvic ultrasound with normal bilateral ovarian arteriovenous Doppler flow. [place] Lipase [Catalytic activity/Vol] 25 U/L 13 - 60 U/L [place] SARS-CoV-2 [place] SARS-CoV-2, Rapid Not Detected Not Detected [place] Comment on above: Rapid NAAT: The specimen is NEGATIVE for SARS-CoV-2, the novel coronavirus associated with COVID-19. The ID NOW COVID-19 assay is designed to detect the virus that causes COVID-19 in patients with signs and symptoms of infection who are suspected of COVID-19. An individual without symptoms of COVID-19 and who is not shedding SARS-CoV-2 virus would expect to have a negative (not detected) result in this assay. Negative results should be treated as presumptive and, if inconsistent with clinical signs and symptoms or necessary for patient management, should be tested with an alternative molecular assay. Negative results do not preclude SARS-CoV-2 infection and should not be used as the sole basis for patient management decisions. Fact sheet for Healthcare Providers: https://www.[facility].gov/media/157406/download Fact sheet for Patients: https://www.fda.gov/media/229809/download Methodology: Isothermal Nucleic Acid Amplification Source .NASOPHARYNGEAL [place] Bilirubin Urine Negative NEGATIVE [place] Color, UA YELLOW YELLOW [place] Glucose, Ur Negative NEGATIVE [place] Interpretation and review of laboratory results Abnormal [place] Nitrite, Urine Negative NEGATIVE [place] pH, UA 8.5 [place] Specific [place], UA 1.015 [place], [place] Turbidity UA CLOUDY Abnormal CLEAR [place] Urinalysis Comments NOT REPORTED [place] Urine Hgb Negative NEGATIVE [place] Urobilinogen, Urine Normal Normal [place] , Urineon 1 Beta HCG ( test) Ql (U) Negative NEGATIVE [place] Comment on above: Specimens with hCG l evels near the threshold of the test (25 mIU/mL) may give a negative or indeterminate result. In such cases, another test should be performed with a new specimen in 48-72 hours. If early is suspected clinically in this setting, correlation with quantitative serum b-hCG level is suggested. [facility] [place] has confirmed the use of plasma for this test. This has not been cleared or approved by the U.S. Food and Drug Administration. The FDA has determined that such clearance is not necessary. [id number] 10-06-2020 SARS-CoV-2 Normal [facility] Comment on above: Performed By: #### D AU #### [facility] [address] [place] [address] Medical Delivery Technician: Pj James MD SARS-CoV-2 Normal [facility] Comment on above: Performed By: #### D AU #### [facility] [address] [place] [address] [place] [address] Medical Delivery Technician: Pj James MD SARS-CoV-2,Rapid Not Detected Normal NOTDET [facility] Comment on above: Result Comment: Rapid NAAT: The specimen is NEGATIVE for SARS-CoV-2, the novel coronavirus associated with COVID-19. The ID NOW COVID-19 assay is designed to detect the virus that causes COVID-19 in patients with signs and symptoms of infection who are suspected of COVID-19. An individual without symptoms of COVID-19 and who is not shedding SARS-CoV-2 virus would expect to have a negative (not detected) result in this assay. Negative results should be treated as presumptive and, if inconsistent with clinical signs and symptoms or necessary for patient management, should be tested with an alternative molecular assay. Negative results do not preclude SARS-CoV-2 infection and should not be used as the sole basis for patient management decisions. Fact sheet for Healthcare Providers: https://www.fda.gov/media/479698/download Fact sheet for Patients: https://www.fda.gov/media/182900/download Methodology: Isothermal Nucleic Acid Amplification Performed By: #### D AU #### [facility] [address] [place] [address] [place] [address] Medical Delivery Technician: Pj James MD SARS-CoV-2 Source .NASOPHARYNGEAL Normal [facility] Comment on above: Performed By: #### D AU #### [facility] [address] [place] [address] [place] [address] Medical Delivery Technician: Pj James MD Salicylateon 7 Salicylate <1 Low 3-10 [facility] Comment on above: Performed By: #### A LCB #### [facility] [address] [place] [address] [place] [address] Medical Delivery Technician: Pj James MD Thyroidon 10-06-2020 TSH Qn 0.95 m[IU]/L [facility] [place] Thyroid Stim. Horm.on 2020 TSH Qn 0.95 m[IU]/L Normal 0.30-5.00 [facility] Comment on above: Performed By: #### A LCB #### [facility] [address] [place] [address] Medical Delivery Technician: Pj James MD UA w/Reflex Cultureon 2020 Acetoacetic Acid,Ur Negative Normal NEG [facility] Comment on above: Performed By: #### A LCB #### [facility] [address] [place] [address] [place] [address] Medical Delivery Technician: Pj James MD Bilirubin, SemiQt,Ur Negative Normal [facility] Comment on above: Performed By: #### A LCB #### [facility] [address] [place] [address] [place] [address] Medical Delivery Technician: Pj James MD Color (U) YELLOW Normal YEL [facility] Comment on above: Performed By: #### A LCB #### [facility] [address] [place] [address] [place] [address] Medical Delivery Technician: Pj James MD Glucose Ql (U) Negative Normal [facility] Comment on above: Performed By: #### A LCB #### [facility] [address] [place] [address] [place] [address] Medical Delivery Technician: Pj James MD Hemoglobin, Ur Negative Normal [facility] Comment on above: Performed By: #### A LCB #### [facility] [address] [place] [address] [place] [address] Medical Delivery Technician: Pj James MD Leukocyte esterase Test strip Ql (U) SMALL Abnormal NEG [facility] Comment on above: Performed By: #### A LCB #### [facility] [address] [place] [address] [place] [address] Medical Delivery Technician: Pj James MD Nitrite,Ur Negative Normal NEG [facility] Comment on above: Performed By: #### A LCB #### [facility] [address] [place] [address] Medical Delivery Technician: Pj James MD pH (U) 6.5 [pH] Normal 5.0-9.0 [facility] Comment on above: Performed By: #### A LCB #### [facility] [address] [place], [place] [id number] Medical Delivery Technician: Pj James MD Protein Ql (U) Negative Normal NEG [facility] Comment on above: Performed By: #### A LCB #### [address] [place], [place] [id number] Medical Delivery Technician: Pj James MD Specific gravity (U) [Rel density] 1.025 High 1.010-1.02 0 [facility] Comment on above: Performed By: #### A LCB #### [facility] [address] [place] [address] [place], [place] [id number] Medical Delivery Technician: Pj James MD Turbidity CLEAR Normal CLEAR [facility] Comment on above: Performed By: #### A LCB #### [facility] [address] [place] [address] [place], [place] [id number] Medical Delivery Technician: Pj James MD Urobilinogen,Ur Normal Normal NORM [facility] Comment on above: Performed By: #### A LCB #### [facility] [address] [place], [place] [id number] Medical Delivery Technician: Pj James MD Comment NOT REPORTED Normal [facility] Comment on above: Performed By: #### A LCB #### [facility] [address] [place], [place] [id number] Medical Delivery Technician: Pj James MD US DUP ABD PEL RETRO SCROT L IMITEDon 10-06-2020 US DUP ABD PEL RETRO SCROT LIMITED EXAMINATION: PELVIC ULTRASOUND; ULTRASOUND OF THE SCROTUM/TESTICLES WITH COLOR DOPPLER FLOW EVALUATION 10/06/2020 TECHNIQUE: Transvaginal pelvic ultrasound was performed. Color Doppler evaluation was performed. COMPARISON: None HISTORY: ORDERING SYSTEM PROVIDED HISTORY: Right lower quadrant pain, suspect ovarian torsion FINDINGS: Measurements: Uterus: 6.8 x 3.0 x 4.4 cm Endometrial stripe: 1 cm Right Ovary: 3.3 x 2.9 x 3.4 cm Left Ovary: 3.0 x 2.6 x 2.1 cm Ultrasound Findings: Uterus: Uterus demonstrates normal myometrial echotexture. Endometrial stripe: Endometrial stripe is within normal limits. Right Ovary: Right ovary demonstrates 2.1 cm benign cyst. There is normal arterial and venous doppler flow. Left Ovary: Left ovary is within normal limits. There is normal arterial and venous doppler flow. Free Fluid: No evidence of free fluid. IMPRESSION: Right ovarian cyst as measured above for which no follow-up imaging is recommended, otherwise negative pelvic ultrasound with normal bilateral ovarian arteriovenous Doppler flow. Interpreted by: Deonte Dumont MD Signed by: Deonte Dumont MD 10/06/20 Final result Normal [facility] US NON OB TRANSVAGINALon US NON OB TRANSVAGINAL EXAMINATION: PELVIC ULTRASOUND; ULTRASOUND OF THE SCROTUM/TESTICLES WITH COLOR DOPPLER FLOW EVALUATION 10/06/2020 TECHNIQUE: Transvaginal pelvic ultrasound was performed. Color Doppler evaluation was performed. COMPARISON: None HISTORY: ORDERING SYSTEM PROVIDED HISTORY: Right lower quadrant pain, suspect ovarian torsion FINDINGS: Measurements: Uterus: 6.8 x 3.0 x 4.4 cm Endometrial stripe: 1 cm Right Ovary: 3.3 x 2.9 x 3.4 cm Left Ovary: 3.0 x 2.6 x 2.1 cm Ultrasound Findings: Uterus: Uterus demonstrates normal myometrial echotexture. Endometrial stripe: Endometrial stripe is within normal limits. Right Ovary: Right ovary demonstrates 2.1 cm benign cyst. There is normal arterial and venous doppler flow. Left Ovary: Left ovary is within normal limits. There is normal arterial and venous doppler flow. Free Fluid: No evidence of free fluid. IMPRESSION: Right ovarian cyst as measured above for which no follow-up imaging is recommended, otherwise negative pelvic ultrasound with normal bilateral ovarian arteriovenous Doppler flow. Interpreted by: Deonte Dumont MD Signed by: Deonte Dumont MD 10/06/20 Final result Normal [facility] Urinalysison 10-06-2020 Ketones Ql (U) Negative NEGATIVE [facility] [place] Leukocyte esterase Test strip Ql (U) SMALL Abnormal NEGATIVE [facility] [place] Protein (U) [Mass/Vol] Negative NEGATIVE Me [facility] Beta HCG ( test) Ql (U) Negative NEGATIVE [facility] [place] Comment on above: Specimens with hCG l evels near the threshold of the test (25 mIU/mL) may give a negative or indeterminate result. In such cases, another test should be performed with a new specimen in 48-72 hours. If early is suspected clinically in this setting, correlation with quantitative serum b-hCG level is suggested. [facility] [place] has confirmed the use of plasma for this test. This has not been cleared or approved by the U.S. Food and Drug Administration. The FDA has determined that such clearance is not necessary. Ketones Ql (U) Negative NEGATIVE [facility] [place] Leukocyte esterase Test strip Ql (U) SMALL Abnormal NEGATIVE [facility], [place] Protein (U) [Mass/Vol] Negative NEGATIVE [facility] [place] Urinalysis, Routineon 2020 Acetoacetic Acid,Ur Negative Normal NEG [facility] Comment on above: Performed By: #### U A, UMICAO, JES, UHCG #### [facility] [address] [place] [address] [place] [address] Medical Delivery Technician: Pj James MD Bilirubin, SemiQt,Ur Negative Normal NEG [facility] Comment on above: Performed By: #### U A, UMICAO, JES, UHCG #### [facility] [address] [place] [address] Medical Delivery Technician: Pj James MD Color (U) YELLOW Normal YEL [facility] Comment on above: Performed By: #### U A, UMICAO, JES, UHCG #### [facility] [address] [place], [place] [id number] Medical Delivery Technician: Pj James MD Glucose Ql (U) Negative Normal NEG [facility] Comment on above: Performed By: #### U A, UMICAO, JES, UHCG #### [facility] [address] [place], [place] [id number] Medical Delivery Technician: Pj James MD Hemoglobin, Ur Negative Normal NEG [facility] Comment on above: Performed By: #### U A, UMICAO, JES, UHCG #### [facility] [address] [place], [place] [phone] Medical Delivery Technician: Pj James MD Leukocyte esterase Test strip Ql (U) SMALL Abnormal NEG [facility] Comment on above: Performed By: #### U A, UMICAO, JES, UHCG #### [facility] [address] [place] [address] [place], [place] [id number] Medical Delivery Technician: Pj James MD Nitrite,Ur Negative Normal [facility] Comment on above: Performed By: #### U A, UMICAO, JES, UHCG #### [facility] [address] [place] [address] Dr[place], [place] [id number] Medical Delivery Technician: Pj James MD pH (U) 8.5 [pH] Normal 5.0-9.0 [facility] Comment on above: Performed By: #### U A, UMICAO JES, UHCG #### [facility] [address] [place], [place] [id number] Medical Delivery Technician: Pj James MD Protein Ql (U) Negative Normal NEG [facility] Comment on above: Performed By: #### U A, UMICAO, JES, UHCG #### [facility] [address] [place], [place] [id number] Medical Delivery Technician: Pj James MD Specific gravity (U) [Rel density] 1.015 Normal 1.010-1.02 0 [facility] Comment on above: Performed By: #### U Farhat, LARRY PRINCEU, UHCG #### [facility] [address] [place] [address] [place], [place] [id number] Medical Delivery Technician: Pj James MD Turbidity CLOUDY Abnormal CLEAR [facility] Comment on above: Performed By: #### U SURESH Dougherty DAU, UHCG #### [facility] [address] [place] [address] Medical Delivery Technician: Pj James MD Urobilinogen,Ur Normal Normal NORM [facility] Comment on above: Performed By: #### U SURESH Dougherty DAU, UHCG #### [address] [place] [address] Medical Delivery Technician: Pj James MD Comment NOT REPORTED Normal [facility] Comment on above: Performed By: #### U SURESH Dougherty DAU, UHCG #### [address] [place], [place] [phone] Medical Delivery Technician: Pj James MD Urinalysis,Microon 1 ----- Normal [facility] Comment on above: Performed By: #### A LCB #### [facility] [address] [place] [address] [place] [address] Medical Delivery Technician: Pj James MD Amorphous sediment LM Ql (Urine sed) 1+ Abnormal [facility] Comment on above: Performed By: #### A LCB #### [facility] [address] [place] [address] [place] [address] Medical Delivery Technician: Pj James MD Bacteria LM.HPF (Urine sed) [#/Area] 1+ Abnormal [facility] Comment on above: Performed By: #### A LCB #### [address] [place] [address] Medical Delivery Technician: Pj James MD Epithelial cells LM.HPF (Urine sed) [#/Area] 5 TO 10 Normal 0-25 [facility] Comment on above: Performed By: #### A LCB #### [address] [place], [place] [id number] Medical Delivery Technician: Pj James MD RBC (U) [#/Vol] 0 TO 2 Normal 0-2 [facility] Comment on above: Performed By: #### A LCB #### [address] [place] [facility] Medical Delivery Technician: Pj James MD WBC (U) [#/Vol] 5 TO 10 Normal 0-5 [facility] Comment on above: Performed By: #### A LCB #### [address] [place], [facility] Medical Delivery Technician: Pj James MD Casts LM.LPF (Urine sed) [#/Area] NOT REPORTED Normal [facility] Comment on above: Performed By: #### A LCB #### [address] [place], [place] [id number] Medical Delivery Technician: Pj James MD Crystals LM Nom (Urine sed) NOT REPORTED Normal NONE [facility] Comment on above: Performed By: #### A LCB #### [address] [place], [facility] Medical Delivery Technician: Pj James MD Epithelial, Renal NOT REPORTED Normal 0 [facility] Comment on above: Performed By: #### A LCB #### [address] [place] [address] Medical Delivery Technician: Pj James MD Mucus Strands NOT REPORTED Normal [facility] Comment on above: Performed By: #### A LCB #### [address] [place], [place] [id number] Medical Delivery Technician: Pj James MD Other Observations NOT REPORTED Normal NREQ [facility] Comment on above: Performed By: #### A LCB #### [address] [place], [place] [id number] Medical Delivery Technician: Pj James MD Trichomonas NOT REPORTED Normal [facility] Comment on above: Performed By: #### A LCB #### [address] [place] [id number] Medical Delivery Technician: Pj James MD Yeast LM Ql (Urine sed) NOT REPORTED Normal [facility] Comment on above: Performed By: #### A LCB #### [address] [place], [facility] Medical Delivery Technician: Pj James MD ----- Normal [facility] Comment on above: Performed By: #### U SURESH Dougherty DAU, UHCG #### [address] [place], [facility] Medical Delivery Technician: Pj James MD Amorphous sediment LM Ql (Urine sed) 2+ Abnormal [facility] Comment on above: Performed By: #### U SURESH Dougherty DAU, UHCG #### [address] [place], [facility] Medical Delivery Technician: Pj James MD Bacteria LM.HPF (Urine sed) [#/Area] 2+ Abnormal [facility] Comment on above: Performed By: #### U ASURESH DAU, UHCG #### [address] [place] [address] Medical Delivery Technician: Pj James MD Epithelial cells LM.HPF (Urine sed) [#/Area] 5 TO 10 Normal 0-25 [facility] Comment on above: Performed By: #### U ASURESH DAU, UHCG #### [facility] [address] [place], [place] [id number] Medical Delivery Technician: Pj James MD RBC (U) [#/Vol] None Normal 0-2 [facility] Comment on above: Performed By: #### U A, UMICAO, JES, UHCG #### [facility] [address] [place] [address] [place], [place] [id number] Medical Delivery Technician: Pj James MD WBC (U) [#/Vol] 5 TO 10 Normal 0-5 [facility] Comment on above: Performed By: #### U A, UMICAO, JES, UHCG #### [address] [place], [place] [id number] Medical Delivery Technician: Pj James MD Casts LM.LPF (Urine sed) [#/Area] NOT REPORTED Normal [facility] Comment on above: Performed By: #### U A, UMICAO, JES, UHCG #### [address] [place], [place] 0544483 Medical Delivery Technician: Pj James MD Crystals LM Nom (Urine sed) NOT REPORTED Normal [facility] Comment on above: Performed By: #### U A, UMICAO, JES, UHCG #### [address] [place], [place] 5505883 Medical Delivery Technician: Pj James MD Epithelial, Renal NOT REPORTED Normal 0 [facility] Comment on above: Performed By: #### U A, UMICAO, JES, UHCG #### [address] [place], [place] 169[address]83 Medical Delivery Technician: Pj James MD Mucus Strands NOT REPORTED Normal NONE [facility] Comment on above: Performed By: #### U A, UMICAO, EJS, UHCG #### [address] [place], [place] 8039683 Medical Delivery Technician: Pj James MD Other Observations NOT REPORTED Normal NREQ [facility] Comment on above: Performed By: #### U A, SURESH, JES, CG #### [facility] [address] [place], [place] [address]84383 Medical Delivery Technician: Pj James MD Trichomonas NOT REPORTED Normal [facility] Comment on above: Performed By: #### U A, SURESH, JES, CG #### [facility] [address] [place], [place] 8[address] Medical Delivery Technician: Pj James MD Yeast LM Ql (Urine sed) NOT REPORTED Normal [facility] Comment on above: Performed By: #### U A, SURESH JES, CG #### [facility] [address] [place], [place] [address]383 Medical Delivery Technician: Pj James MD Vital Signs Date Time Vital Sign Value Performing Clinician Mat pedraza 02-01-2024 14:12040 Body height 165.1 cm PHYSICIAN NO [facility] 02-01-2024 14:12-040 Body temperature 97.9 [degF] PHYSICIAN NO [facility] 02-01-2024 14:12-0400 Body weight 61.3 kg PHYSICIAN NO [facility] 02-01-2024 14:12-0400 Diastolic blood pressure 58 mm[Hg] PHYSICIAN NO [facility] 02-01-2024 14:12-0400 Heart rate 62 /min PHYSICIAN NO [facility] 02-01-2024 14:12-0400 Respiratory rate 18 /min PHYSICIAN NO [facility] 02-01-2024 14:12-0400 SaO2% (BldA) [Mass fraction] 95 % PHYSICIAN [facility] 02-01-2024 14:12-0400 Systolic blood pressure 119 mm[Hg] PHYSICIAN NO [facility] 10-15-2022 10:47-0500 Blood Pressure Location HAI FISH [facility] 10-15-2022 10:47-0500 Diastolic blood pressure 77 mm[Hg] HAI FISH [facility] 10-15-2022 10:47-0500 Heart rate 59 /min HAI FISH [facility] 10-15-2022 10:47-0500 Systolic blood pressure 148 mm[Hg] HAI FISH [facility] 10-09-2020 20:03-0500 Body Temperature 97.9 [degF] [facility] [place] 10-09-2020 20:03-0500 BP Diastolic 72 mm[Hg] [facility] [place] 10-09-2020 20:03-0500 BP Systolic 123 mm[Hg] [facility] [place] 10-09-2020 20:03-0500 Pulse (Heart Rate) 97 /min [facility] 10-09-2020 20:03-0500 Respiratory Rate 14 /min [facility] 10-07-2020 01:33-0500 BMI (Body Mass Index) 24.3 kg/m2 [facility] [place] 10-07-2020 01:33-0500 Body weight 66.[address] [facility] [place] 10-07-2020 01:33-0500 Height 165.[address] [facility] [place] 10-06-2020 23:50-0500 BP Diastolic 84 mm[Hg] Syl Gerardo [facility] [place] 10-06-2020 23:50-0500 BP Systolic 148 mm[Hg] Syl Gerardo [facility] [place] 10-06-2020 23:50-0500 Pulse (Heart Rate) 94 /min Syl Gerardo [facility] 10-06-2020 18:45-0500 BMI (Body Mass Index) 24.3 kg/m2 Syl Oliveira [facility], [place] 10-06-2020 18:45-0500 Body Temperature 98.2 [degF] Syl Gerardo [facility] 10-06-2020 18:45-0500 Body weight 66.22 kg Syl Gerardo [facility] [place] 10-06-2020 18:45-0500 Height 165.1 cm Syl Gerardo [facility] [place] 10-06-2020 18:45-0500 Pulse Oximetry 100 % Syl Gerardo [facility] [place] 10-06-2020 18:45-0500 Respiratory Rate 18 /min Syl Gerardo [facility] 10-06-2020 12:54-0500 BP Diastolic 65 mm[Hg] [facility] [place] 10-06-2020 12:54-0500 BP Systolic 116 mm[Hg] Yan [facility] 10-06-2020 12:54-0500 Pulse (Heart Rate) 77 /min [facility] [place] 10-[facility]-2020 12:54-0500 Pulse Oximetry 100 % Yan [facility] 10-06-2020 12:54-0500 Respiratory Rate 14 /min [facility] [place] 10-06-2020 10:04-0500 BMI (Body Mass Index) 24.3 kg/m2 [facility], [place] 10-06-2020 10:04-0500 Body Temperature 97.9 [degF] [facility] [place] 10-06-2020 10:04-0500 Body weight 66.22 kg Yan [facility] 10-06-2020 10:04-0500 Height 165.1 cm [facility] [place] Encounters Encounter Date Encounter Type Care Provider Facility Start: 04-26-2024 End: 04-26-2024 ambulatory ZOE SUNSHINE Not Available Start: 03-17-2024 End: 03-17-2024 ambulatory RAYMUNDO SEALS Not Available Start: 02-17-2024 End: 02-17-2024 ambulatory NELY CHUNG Not Available Start: 02-15-2024 End: 02-15-2024 ambulatory RAYMUNDO RIANA Not Available Start: 02-01-2024 End: 02-01-2024 Emergency department patient visit Juventino Cheung Facility:[facility] Start: 02-01-2024 End: 02-01-2024 Emergency department patient visit PHYSICIAN TAISHA CASTELLANOS [facility] Work Phone: Start: 06-09-2023 End: 06-09-2023 ambulatory Feng Barros Other [employer] Other Start: 06-09-2023 Telephone encounter Feng webber [facility] Start: 06-07-2023 End: 06-07-2023 Emergency department patient visit Simon Hsu Facility:[facility] Start: 06-05-2023 Emergency department patient visit PAWEL FISH Facility:[facility] Start: 05-25-2023 End: 05-25-2023 Emergency department patient visit Brett Hunter Facility:[facility] Start: 03-18-2023 End: 03-19-2023 Emergency department patient visit [facility] Start: 02-25-2023 End: 02-25-2023 ambulatory Feng Barros Facility:[facility] Start: 02-25-2023 End: 02-25-2023 ambulatory MD Shaikh Santiago Work Phone: [facility] Work Phone: Start: 02-25-2023 End: 02-25-2023 Patient encounter procedure MD Shaikh Santiago Work Phone: [facility] Work Phone: Start: 02-12-2023 End: 02-12-2023 ambulatory Feng Barros Other [employer] Other Start: 02-12-2023 Telephone encounter Feng webber [facility] Start: 02-07-2023 End: 02-07-2023 ambulatory MAC H FAWWAD Facility:[facility] Start: 02-02-2023 End: 02-03-2023 ambulatory MAC H FAWWAD Facility:[facility] Start: 01-21-2023 End: 01-22-2023 ambulatory MAC H FAWWAD Facility:[facility] Start: 01-12-2023 End: 01-13-2023 ambulatory MAC H FAWWAD Facility:[facility] Start: 12-08-2022 End: 12-09-2022 ambulatory [facility] Start: 12-04-2022 ambulatory MAC H FAWWAD Facilit y:[facility] Start: 11-18-2022 End: 11-19-[address] CARISSA NORMAN . Facility:[facility] Start: 11-12-2022 End: 11-12-2022 Emergency department patient visit [facility] Start: 10-15-2022 End: 10-16-2022 ambulatory PAWEL FISH Facility:[facility] Start: 10-15-2022 End: 10-16-[address] PJ QUINONES Facility: Start: 10-15-2022 End: 10-15-2022 Lab Drop off HAI FISH [facility] Start: 10-15-2022 End: 10-15-2022 Patient encounter procedure HAI FISH [facility] Start: 10-13-2022 ambulatory PAWEL FISH Fac ility:[facility] Start: 10-07-2022 End: 10-07-2022 ambulatory MAC H FAWWAD Facility:[facility] Start: 09-13-2022 End: 09-13-2022 ambulatory MAC H FAWWAD Facility:[facility] Start: 09-08-2022 End: 09-08-2022 ambulatory MAC H FAWWAD Facility:[facility] Start: 09-01-2022 ambulatory MAC H FAWWAD Facilit y:[facility] Start: 08-28-2022 End: 08-29-2022 ambulatory MAC H FAWWAD Facility:[facility] Start: 08-19-2022 End: 08-19-2022 ambulatory MAC H FAWWAD Facility:[facility] Start: 07-04-2022 Encounter for preprocedural laboratory examination DR RAYMUNDO SEALS . [facility] Start: 07-03-2022 End: 07-03-2022 ambulatory MAC H FAWWAD Facility:[facility] Start: 07-01-2022 End: 07-02-2022 ambulatory MAC H FAWWAD Facility:[facility] Start: 07-01-2022 End: 07-02-2022 Encounter for preprocedural laboratory examination MAC H FAWWAD Facility:[facility] Start: 06-20-2022 End: 06-21-2022 ambulatory MAC H FAWWAD Facility:[facility] Start: 06-14-2022 Encounter for cervic al smear to confirm findings of recent normal smear following initial abnormal smear DR RAYMUNDO SEALS . [facility] Start: 06-10-2022 End: 06-10-2022 ambulatory MAC H FAWWAD Facility:[facility] Start: 06-10-2022 End: 06-10-2022 Encounter for cervical smear to confirm findings of recent normal smear following initial abnormal smear MAC H FAWWAD Facility:[facility] Start: 05-31-2022 End: 05-31-2022 ambulatory MAC H FAWWAD Facility:[facility] Start: 05-26-2022 End: 05-27-[address] DOCTOR RAMOS Facility:[facility] Start: 05-24-2022 End: 05-25-2022 ambulatory MAC H FAWWAJohanna Facility:[facility] Start: 05-22-2022 End: 05-23-2022 ambulatory MAC H FAWWAJohanna Facility:[facility] Start: 05-06-2022 End: 05-06-[address] SYEDA YATES Facility:[facility] Start: 04-24-2022 End: 04-24-2022 ambulatory JAIMIE Harding Facility:[facility] Start: 03-04-2022 End: 03-04-[address] SYEDA YATES Facility:[facility] Start: 10-08-2020 Coordination of care plan Anjana Ernandez [facility] [employer] Comment on above: Concern For COVID-19 (ED follow up / COVID protocol ) Start: 10-07-[address] [facility] Start: 10-07-2020 End: 10-10-2020 Evaluation and management of inpatient NAT BOYD [facility] Start: 10-06-2020 End: 10-07-2020 Emergency department patient visit SYL GERARDO [facility] Start: 10-06-2020 End: 10-07-2020 Emergency department patient visit Syl Gerardo Work Phone: [facility] Comment on above: Depression with suic idal ideation (Primary Dx) Start: 10-06-2020 Patient encounter procedure [facility] ESTELLA Start: 10-06-2020 End: 10-06-2020 Emergency department patient visit YAN LOWE [facility] Start: 10-06-2020 End: 10-06-2020 Emergency department patient visit Yan Lowe Work Phone: [facility] Comment on above: Lower abdominal pain (Primary Dx); Cyst of right ovary Start: 10-06-2017 Amb[facility] Start: 04-28-2017 End: 04-29-2017 Ambulatory UNKNOWN PROVIDER Facility:[facility] Start: 04-08-2017 End: 04-09-2017 Ambulatory UNKNOWN PROVIDER Facility:[facility] Procedures Date Procedure Procedure Detail Performing Clinician Start: 02-25-2023 Ultrasound elastogra phy of liver MD Shaikh Santiago Work Phone: Start: 10-06-2020 Assay of acetaminophen Syl Gerardo Work Phone: Start: 10-06-2020 Assay of ethanol Marelyiss a Cal Work Phone: Start: 10-06-2020 Assay of salicylate Marely nerissa Cal Work Phone: Start: 10-06-2020 Assay of thyroid sti mulating hormone tsh Syl Gerardo Work Phone: Start: 10-06-2020 Blood count complete auto&auto difrntl wbc Syl Gerardo Work Phone: Start: 10-06-2020 Drug screen class list a Syl Gerardo Work Phone: Start: 10-06-2020 Urinalysis microscopic only Syl Gerardo Work Phone: Start: 10-06-2020 Urine test visual color cmprsn meths Syl Gerardo Work Phone: Start: 10-06-2020 Urnls dip stick/tabl et rgnt auto w/o microscopy Syl Gerardo Work Phone: Start: 10-06-2020 Dup-scan artl krissy abdl/pel/scrot&/rpr orgn lmt Yan Lowe Work Phone: Start: 10-06-2020 Us transvaginal Yan Zaragozalucina Work Phone: Start: 10-06-2020 Iadna multiple organ isms amplified probe tq Yan Lowe Work Phone: Start: 10-06-2020 COVID-19 Yan Jones ibicki Work Phone: Start: 10-06-2020 Assay of lipase Yan Lowe Work Phone: Start: 10-06-2020 Blood count complete auto&auto difrntl wbc Yan Lowe Work Phone: Start: 10-06-2020 Drug screen class list a Yan Lowe Work Phone: Start: 10-06-2020 Urinalysis microscopic only Yan Lowe Work Phone: Start: 10-06-2020 Urine test visual color cmprsn meths Yan Gonzalezakbarelba Work Phone: Start: 10-06-2020 Urnls dip stick/tabl et rgnt auto w/o microscopy Yan Niklolyrosana Work Phone: Start: 09-28-2013 Appendectomy HAI MULLEN Start: 09-28-2010 Cholecystectomy GAGAN FISH Adenoidectomy primary MANUEL FISH Cyst (disorder) HAI CABRERA Plan of Treatment Date Care Activity Detail Author Start: 02-01-2024 Bacteria identified in Urine by Culture Urine Culture [facility] Start: 10-20-2023 ambulatory Ambulatory Facility:[facility] Start: 02-25-2023 [facility] Start: 02-25-2023 Ultrasonography of liver US liver [facility] Start: 05-29-2020 Influenza vaccination Flu vaccine (# 1) [place], [place] Start: 2015 Screening for malign ant neoplasm of cervix Cervical cancer screen [place], [place] Start: 2013 DTaP/Tdap/Td vaccine (1 - Tdap) DTaP/Tdap/Td vaccine (1 - Tdap) [place], [place] Start: 2009 HIV screening HIV screen [place], [place] Start: 2005 HPV vaccine (1 - 2-d ose series) HPV vaccine (1 - 2-dose series) [place], [place] Start: 2000 Pneumococcal 0-64 ye ars Vaccine (1 of 1 - PPSV23) Pneumococcal 0-64 years Vaccine (1 of 1 - PPSV23) [place], [place] Start: 1995 Varicella vaccine (1 of 2 - 2-dose childhood series) Varicella vaccine (1 of 2 - 2-dose childhood series) [place], [place] Start: 1994 Hepatitis C screening Hepatitis C sc reen [place] Albumin/Globulin ratio [facility] Anion gap measurement [facility] Basophils [#/volume] in Blood by Automated count [facility] Basophils/100 leukoc ytes in Blood by Automated count [facility] End: 10-06-2020 C.trachomatis N.gonorrhoeae DNA C.trachomatis N.gonorrhoeae DNA Microbiology Routine One Time for 1 Occurrences starting 10/06/2020 until 10/06/2020 [place] Comment on above: One Time for 1 Occur rences starting 10/06/2020 until 10/06/2020 C.trachomatis N.gonorrhoeae DNA C.trachomatis N.gonorrhoeae DNA Microbiology STAT 10/06/2020 11:35 AM EST [place] End: 10-06-2020 COVID-19, PCR COVID-19, PCR Lab STAT One Time for 1 Occurrences starting 10/06/2020 until 10/06/2020 [place] Comment on above: One Time for 1 Occur rences starting 10/06/2020 until 10/06/2020 Eosinophils [#/volum e] in Blood [facility] Eosinophils/100 leuk ocytes in Blood by Automated count [facility] Erythrocyte distribu tion width [Ratio] by Automated count [facility] Erythrocytes [#/volu me] in Blood [facility] Globulin [Mass/volum e] in Serum [facility] Hematocrit [Volume Fraction] of Blood [facility] Hemoglobin [Mass/vol ume] in Blood [facility] Hepatitis B core ant ibody measurement [facility] Hepatitis B virus king rface Ab [Presence] in Serum [facility] Hepatitis B virus king rface Ag [Presence] in Serum or Plasma by Immunoassay [facility] Hepatitis C virus RN A [log units/volume] (viral load) in Serum or Plasma by MARCELLA with probe detection [facility] Leukocytes [#/volume ] corrected for nucleated erythrocytes in Blood by Automated coun [facility] Leukocytes [#/volume ] in Blood [facility] Lymphocytes [#/volum e] in Blood by Automated count [facility] Lymphocytes/100 leuk ocytes in Blood by Automated count [facility] MCH [Entitic mass] b y Automated count [facility] MCHC [Mass/volume] b y Automated count [facility] MCV [Entitic volume] by Automated count [facility] Monocytes [#/volume] in Blood by Automated count [facility] Monocytes/100 leukoc ytes in Blood by Automated count [facility] Neutrophils [#/volum e] in Blood by Automated count [facility] Neutrophils/100 leuk ocytes in Blood by Automated count [facility] Nucleated erythrocyt es [Presence] in Blood by Automated count [facility] Patient Education Urinary Tract Infection, Adult ED [facility] Work Phone: Patient referral [facility] Work Phone: Platelet mean volume [Entitic volume] in Blood by Automated count [facility] Platelets [#/volume] in Blood [facility] Immunizations Immunization Date Immunization Notes Care Provider Avery daugherty 10-05-2020 hepatitis A vaccine, adult dosage HAI ABE [facility] 10-05-2020 influenza virus vaccine, unspecified formulation HAI ABE [facility] 11-04-2011 influenza virus vaccine, unspecified formulation HAI ABE [facility] 05-12-2000 DTaP, unspecified formulation HAI ABE [facility] 05-12-2000 measles, mumps and rubella virus vaccine HAI ABE [facility] 05-12-2000 poliovirus vaccine, unspecified formulation HAI ABE [facility] 01-29-1996 DTaP, unspecified formulation HAI ABE [facility] 01-29-1996 Hib, unspecified formulation HAI ABE [facility] 10-29-1995 measles, mumps and rubella virus vaccine HAI ABE [facility] 05-11-1995 DTP-Hib HAI ABE [facility] 05-11-1995 hepatitis B vaccine, pediatric or pediatric/adolescent dosage HAI ABE [facility] 03-11-1995 DTP-Hib HAI ABE [facility] 03-11-1995 hepatitis B vaccine, pediatric or pediatric/adolescent dosage HAI ABE [facility] 1994 DTP-Hib HAI ABE [facility] 1994 hepatitis B vaccine, pediatric or pediatric/adolescent dosage HAI ABE [facility] Payers Date Payer Category Payer Unknown [id number] 2023 Unknown [id number] 2023 Self-pay [id number] 2020 Unknown [id number] 1.2.8 [id number] 2016 Medicaid [id number] 2015 Unknown [id number] 1994 Unknown [id number] 2.16.8 40.1.430752.3.579.2.173 1994 Unknown [id number] 2.16.8 40.1.187755.3.579.2.173 1994 Unknown [id number] 2.16.8 40.1.976476.3.579.2.176 1994 Unknown [id number] 2.16.84 0.1.583602.3.579.2.593 1994 Unknown [id number] 2.16.84 0.1.939502.3.579.2.593 1994 Unknown [id number] 2.16.84 0.1.000483.3.579.2.593 1994 Unknown [id number] 2.16.84 0.1.679974.3.579.2.593 1994 Unknown [id number] 2.16.84 0.1.770291.3.579.2.593 1994 Unknown [id number] 2.16.84 0.1.139129.3.579.2.593 1994 Unknown [id number] 2.16.84 0.1.355568.3.579.2.593 1994 Unknown [id number] 2.16.84 0.1.854654.3.579.2.593 1994 Unknown [id number] 2.16.84 0.1.094881.3.579.2.593 1994 Unknown [id number] 2.16.84 0.1.242015.3.579.2.593 1994 Unknown [id number] 2.16.84 0.1.554325.3.579.2.593 1994 Unknown [id number] 2.16.84 0.1.809865.3.579.2.593 1994 Unknown [id number] 2.16.84 0.1.383739.3.579.2.593 1994 Unknown [id number] 2.16.84 0.1.984430.3.579.2.593 1994 Unknown [id number] 2.16.84 0.1.282942.3.579.2.593 1994 Unknown [id number] 2.16.84 0.1.035364.3.579.2.593 1994 Unknown [id number] 2.16.84 0.1.827892.3.579.2.593 1994 Unknown [id number] 2.16.84 0.1.073698.3.579.2.593 1994 Unknown [id number] 2.16.84 0.1.200401.3.579.2.593 1994 Unknown [id number] 2.16.84 0.1.871361.3.579.2.593 1994 Unknown [id number] 2.16.84 0.1.911367.3.579.2.593 1994 Unknown [id number] 2.16.84 0.1.037231.3.579.2.593 1994 Unknown [id number] 2.16.84 0.1.384157.3.579.2.593 1994 Unknown [id number] 2.16.84 0.1.870010.3.579.2.593 1994 Unknown [id number] 2.16.84 0.1.932748.3.579.2.593 1994 Unknown [id number] 2.16. 840.1.849832.3.579.2.903 1994 Unknown [id number] 2.16. 840.1.968261.3.579.2.903 1994 Unknown [id number] 2.16. 840.1.111927.3.579.2.903 1994 Unknown [id number] 2.16.8 40.1.239777.3.579.2.727 1994 Unknown [id number] 2.16.8 40.1.084449.3.579.2.727 1994 Unknown [id number] 2.16.8 40.1.299840.3.579.2.727 1994 Unknown [id number] 2.16.8 40.1.117090.3.579.2.727 1994 Unknown [id number] 2.16.8 40.1.634635.3.579.2.727 1994 Unknown [id number] 2.16.8 40.1.097375.3.579.2.727 1994 Unknown [id number] 2.16.8 40.1.725176.3.579.2.727 1994 Unknown [id number] 2.16.84 0.1.138996.3.579.2.1259 1994 Unknown [id number] 2.16.84 0.1.821720.3.579.2.1259 1994 Unknown [id number] 2.16.84 0.1.628750.3.579.2.1259 1994 Unknown [id number] 2.16.84 0.1.767092.3.579.2.1259 1959 Unknown [id number] Unknown [id number] [id number] [id number] Unknown [id number] Social History Date Type Detail Facility Start: 10-06-2020 End: 10-08-2020 Tobacco smoking status NHIS Current every day smoker [place] History of tobacco use Cigarette Smoker M [place], [place] Start: 10-06-2020 End: 10-08-2020 Cigarettes smoked current (pack per day) - Reported [place] Start: 10-06-2020 End: 10-08-2020 Tobacco use and exposure Never used [place] Start: 10-06-2020 End: 10-08-2020 Alcohol intake Current non-drinker of alcohol (finding) [place] Sex Assigned At Not on file [place] Exposure to SARS-CoV -2 (event) Not sure [place] Start: 10-15-2022 Tobacco smoking status Heavy t obacco smoker (finding) [facility] Jonathan Sex Assigned At Female [facility] Start: 07-31-2020 [facility] Start: 1995 Sex Assigned At Female [facility] Start: 02-01-2024 Tobacco smoking stat us NHIS Ex-smoker (finding) [facility] NEGATED: Highlighted row [facility] Goals Date Patient Goal Desired Activity /State Functional Status Date Assessment Result Facility 10-15-2022 Functional Status N/A [facility] Clinical Notes 05-31-2022 to 02-12-2023 Note Date & Type Note Facility 02-12-2023 Evaluation note Encounter Date Diagnosis Assessment Notes January, Hepatitis C (ICD-10 - B19.20) [facility] Other 01-18-2023 Hospital Discharge instructions Patient Education 10/15/2022 11:55:11 Urinary Tract Infection, Adult Urinary Tract Infection, Adult A urinary tract infection (UTI) is an infection of any part of the urinary tract. The urinary tractincludes the kidneys, ureters, bladder, and urethra. These organs make, store, and get rid of urinein the body. Your health care provider may use other names to describe the infection. An upper UTI affects the ureters and kidneys (pyelonephritis). A lower UTI affects the bladder (cystitis) and urethra (urethritis). What are the causes? Most urinary tract infections are caused by bacteria in your genital area, around the entrance to your urinary tract (urethra). These bacteria grow and cause inflammation of your urinary tract. What increases the risk? You are more likely to develop this condition if: You have a urinary catheter that stays in place (indwelling). You are not able to control when you urinate or have a bowel movement (you have incontinence). You are female and you: ?Use a spermicide or diaphragm for control. ?Have low estrogen levels. ?Are . You have certain genes that increase your risk (genetics). You are sexually active. You take antibiotic medicines. You have a condition that causes your flow of urine to slow down, such as: ?An enlarged prostate, if you are male. ?Blockage in your urethra (stricture). ?A kidney stone. ?A nerve condition that affects your bladder control (neurogenic bladder). ?Not getting enough to drink, or not urinating often. You have certain medical conditions, such as: ?Diabetes. ?A weak disease-fighting system (immunesystem). ?Sickle cell disease. ?Gout. ?Spinal cord injury. What are the signs or symptoms? Symptoms of this condition include: Needing to urinate right away (urgently). Frequent urination or passing small amounts of urine frequently. Pain or burning with urination. Blood in the urine. Urine that smells bad or unusual. Trouble urinating. Cloudy urine. Vaginal discharge, if you are female. Pain in the abdomen or the lower back. You may also have: Vomiting or a decreased appetite. Confusion. Irritability or tiredness. A fever. Diarrhea. The first symptom in older adults may be confusion. In some cases, they may not have any symptoms until the infection has worsened. How is this diagnosed? This condition is diagnosed based on your medical history and a physical exam. You may also have other tests, including: Urine tests. Blood tests. Tests for sexually transmitted infections (STIs). If you have had more than one UTI, a cystoscopy or imaging studies may be done to determine the cause of the infections. How is this treated? Treatment for this condition includes: Antibiotic medicine. Prgf-wxz-obwgvsx medicines to treat discomfort. Drinking enough water to stay hydrated. If you have frequent infections or have other conditions such as a kidney stone, you may need to see a health care provider who specializes in the urinary tract (urologist). In rare cases, urinary tract infections can cause sepsis. Sepsis is a life- threatening condition that occurs when the body responds to an infection. Sepsis is treated in the hospital with IV antibiotics, fluids, and other medicines. Follow these instructions at home: Medicines Take yfqm-ses-jajjvsy and prescription medicines only as told by your health care provider. If you were prescribed an antibiotic medicine, take it as told by your health care provider. Do notstop using the antibiotic even if you start to feel better. General instructions Make sure you: ?Empty your bladder often and completely. Do not hold urine for long periods of time. ?Empty your bladder after sex. ?Wipe from front to back after a bowel movement if you are female. Use each tissue one time when you wipe. Drink enough fluid to keep your urine pale yellow. Keep all follow-up visits as told by your health care provider. This is important. Contact a health care provider if: Your symptoms do not get better after 1 2 days. Your symptoms go away and then return. Get help right away if you have: Severe pain in your back or your lower abdomen. A fever. Nausea or vomiting. Summary A urinary tract infection (UTI) is an infection of any part of the urinary tract, which includes the kidneys, ureters, bladder, and urethra. Most urinary tract infections are caused by bacteria in your genital area, around the entrance to your urinary tract (urethra). Treatment for this condition often includes antibiotic medicines. If you were prescribed an antibiotic medicine, take it as told by your health care provider. Do notstop using the antibiotic even if you start to feel better. Keep all follow-up visits as told by your health care provider. This is important. This information is not intended to replace advice given to you by your health care provider. Make sure you discuss any questions you have with your health care provider. Document Released: 06/24/2006 Document Revised: 09/01/2019 Document Reviewed: 03/24/2019 [employer] Patient Education 2020 [employer]. Follow Up Care 10/13/2022 09:48:40 With:HAI FISH PA-C, URL Address: When:1 year [facility] 12-01-2022 NoteDISCHARGE SUMMARY DISCHARGE DATE: 09/10/2022 PRIMARY DIAGNOSES: 1. Pelvic pain. 2. Right ovarian cyst approximately 5 cm in size. PROCEDURE: Diagnostic laparoscopy with right ovarian cystectomy. HOSPITAL COURSE: As expected. Please see chart for full details. LABORATORY DATA: Please see chart. COMPLICATIONS: None. DISCHARGE CONDITION: Stable. CONSULTATION: Anesthesia. DISCHARGE INSTRUCTIONS: 1. Diet: Regular. 2. Medications: a. Percocet 5/325 one to two p.o. every 4-6 hours p.r.n. pain. b. Motrin 800 one p.o. every 8 hours p.r.n. pain. 3. Followup in one week. Restrictions: Pelvic rest for 6 weeks. No heavy lifting. May drive when pain free and no longer on narcotics.[facility] [id number] NoteOPERATIVE NOTE OPERATION DATE: 08/29/2022 PROCEDURE: Diagnostic laparoscopy with right ovarian cystectomy. PREOPERATIVE DIAGNOSIS: Pelvic pain, right ovarian cyst 5 cm. POSTOPERATIVE DIAGNOSIS: Pelvic pain, right ovarian cyst 5 cm, including 5 cm right ovarian cyst, simple in appearance. ANESTHESIA: General. SURGEON: Raymundo Seals D.O. SUBASSEMBLIES WIRER: SOL Mcmahan URINE OUTPUT: Yellow and clear. BLOOD LOSS: 10 mL. SPECIMEN: Right ovarian cyst wall as well as right ovarian fluid. FINDINGS: Normal appearing uterus, normal appearing left tube and ovary, normal appearing right tube, right ovarian cyst, approximately 5 cm in size, otherwise normal appearing cavity. PROCEDURE: The patient was taken back to the Operating Room where she was placed in dorsal lithotomy position after given general anesthesia. The patient was prepped and draped in normal sterile fashion. A sponge stick was placed into the patient's vagina. Attention was turned to the patient's abdomen, where a small umbilical incision was made. The fascia was tented using Alpesh clamps and the fascia was entered sharply. Confirmation of intra-abdominal placement of the 10 mm port was confirmed under direct visualization using a laparoscope. The patient's abdomen was then insufflated using CO2 gas with approximately 4 liters. A second port was placed left laterally. This was done under direct visualization with a 5 mm port. Survey of the patient's abdomen demonstrated normal liver and gallbladder. Survey of the patient's pelvic anatomy demonstrated normal appearing ovaries and tubes as well as normal appearing uterus. No endometrial implants could be noted, no evidence of any pelvic disease was seen, normal appearing pelvic cavity. All instruments were removed from the patient's abdomen. The patient's abdomen was desufflated of CO2 gas. The patient tolerated the procedure well. Sponge stick was removed from the patient's vagina. The patient's infraumbilical fascia was closed using #0 Vicryl on a GI needle. The patient's skin was closed laterally and infraumbilically using 4-0 Vicryl. The patient tolerated the procedure well. Sponge, lap and needle counts were correct x 2. The patient was taken to Recovery Room in stable condition.[facility] [id number] NoteOPERATIVE NOTE OPERATION DATE: PROCEDURE: D AND C hysteroscopy, diagnostic laparoscopy with chromopertubation. PREOPERATIVE DIAGNOSIS: Pelvic pain, menorrhagia, possible tubal dysfunction. POSTOPERATIVE DIAGNOSIS: Pelvic pain, menorrhagia, possible tubal dysfunction. ANESTHESIA: General. SURGEON: Raymundo Seals D.O. SUBASSEMBLIES WIRER: SOL Xavier URINE OUTPUT: Yellow and clear. FINDINGS: Normal appearing endometrium. No gross evidence of polyps, fibroids, malignancy. Normal appearing ovaries and uterus. Slightly erythematous tubes, possible dysfunction so chromopertubation was performed. Spillage of dye from both tubes. SPECIMEN: Endometrial curettings. BLOOD LOSS: 5 mL. PROCEDURE: The patient was taken back to the Operating Room where she was prepped and draped in normal sterile fashion after being placed under general anesthesia without difficulty. She was also placed in the dorsal lithotomy position. A weighted speculum was placed in the patient's vagina. The anterior lip of the cervix was identified and grasped with a single tooth tenaculum. The patient's uterus was then sounded roughly to [ ] cm. The patient was then gently dilated using Hegar dilators. The hysteroscope was passed through the patient's cervix into the uterus. Both ostia were identified. Normal appearing endometrium. No gross evidence of polyps, fibroids or malignancy. The hysteroscope was then removed from the patient's uterus. At that point, gentle curettage was performed until a gritty texture was noted. The endometrial curettings were sent out to pathology. The single tooth tenaculum was then removed from the patient's anterior lip of the cervix where excellent hemostasis was noted. All instruments were removed from the patient's vagina. The patient tolerated the procedure well. Sponge, lap and needle counts were correct times two. The patient was taken to the Recovery Room in stable condition. The patient was taken back to the Operating Room where she was placed in dorsal lithotomy position after given general anesthesia. The patient was prepped and draped in normal sterile fashion. A HUMI manipulator was placed into the patient's vagina. Attention was turned to the patient's abdomen, where a small umbilical incision was made. The fascia was tented using Alpesh clamps and the fascia was entered sharply. Confirmation of intra-abdominal placement of the 10 mm port was confirmed under direct visualization using a laparoscope. The patient's abdomen was then insufflated using CO2 gas with approximately 4 liters. A second port was placed left laterally. This was done under direct visualization with a 5 mm port. Survey of the patient's abdomen demonstrated normal liver and gallbladder. Survey of the patient's pelvic anatomy demonstrated normal appearing ovaries and tubes as well as normal appearing uterus. No endometrial implants could be noted, no evidence of any pelvic disease was seen, normal appearing pelvic cavity. All instruments were removed from the patient's abdomen. The patient's abdomen was desufflated of CO2 gas. The patient tolerated the procedure well. The HUMI manipulator was removed from the patient's vagina. The patient's infraumbilical fascia was closed using #0 Vicryl on a GI needle. The patient's skin was closed laterally and infraumbilically using 4-0 Vicryl. The patient tolerated the procedure well. Sponge, lap and needle counts were correct x 2. The patient was taken to Recovery Room in stable condition. Please note: Chromopertubation was performed, which did show spillage of dye from the tubes. ?[facility] [id number] NotePROCEDURE: XR TOES LT MIN 2 V, 05/31/2022 4:20 PM EDT CLINICAL INDICATIONS: Palpable abnormality third and fourth toes, onset of symptoms 2 days earlier COMPARISON: None TECHNIQUE: Left toes 3 views FINDINGS: Bones are normal in density. No fracture malalignment or bone destruction is evident. Joint spaces preserved. Soft tissue swelling noted. No opaque foreign body, no gas collection. IMPRESSION: 1. No acute osseous pathology 2. Soft tissue swelling, no opaque foreign body or gas collection Electronically authenticated by: LOTTIE BLAKE Date: 2022-05-31 17:28[facility] HospitalEvaluation + [facility] note Future Appointments Appointment Date:10/20/2023 08:30:00 AM Scheduled Provider:HAI FISH PA-C Location:[facility] Appointment Type:URO Office Visit [facility] evaluation + Plan note Future Appointments Appointment Date:10/20/2023 08:30:00 AM Scheduled Provider:HAI FISH PA-C Location:[facility] Appointment Type:URO Office Visit Diagnostic Tests Pending * [facility]rine [facility] assessment information available [facility] Work Phone: Evaluation noteNo InformationNort [employer] Other History general Narrative - Reported* Type Description Date Medical History bi-polar Medical History depression Surgical History cholecystectomy 2009 Surgical History ADENOIDS 1999 Surgical History APPENDECTOMY Hospitalization History SEE ABOVE [facility] Other Hospital course Narrative No data available for this section [facility] Hospital Discharge instructions No data available for this section [facility] No data available for this section [facility] Summary Purpose Family History No Family History Records Found Medical History Relation Name Comments COPD Mother Depression Mother Diabetes Mother Other Mother Back issues Substance Abuse Mother Relation Name Status Comments Father Alive Mother Alive Relationship Condition Age at Onset Recorded Date/T nancy grandparent Diabetes mellitus Unknown grandparent Malignant neoplasm Unknown Unknown Malignant neoplasm Unknown Not Specified Diabetes mellitus Unknown Advance Directives No Advanced Directives Records FoundLatest Code Status on File Code Status Date Activated Date Inactivated Comments Full Code 10/07/2020 1:31 AM Advance Directive Response Recorded Date/ Time Advance Directives No November 02, 2017 4:30pm Discharge Instructions * Discharge Instr - KAYLIN* Yan Lowe MD - 10/06/2020 10:03 AM EST Continuity of Care Form Patient Name: Joe Rajput : 1995 Admit date: 10/06/2020 Discharge date: Code Status Order: No Order Advance Directives: Admitting Physician: No admitting provider for patient encounter. PCP: No primary care provider on file. Discharging Nurse: Discharging Hospital Unit/Room#: 03/03 Discharging Unit Phone Number: Emergency Contact: Extended Emergency Contact Information Primary Emergency Contact: Linda Stack Address: [address] [place] Relation: Grandparent Respiratory Tech needed? No Past Surgical History: Past Surgical History: Procedure Laterality Date APPENDECTOMY CHOLECYSTECTOMY OTHER SURGICAL HISTORY 2014 ovarian scope Immunization History: There is no immunization history on file for this patient. Active Problems: There is no problem list on file for this patient. Isolation/Infection: Isolation No Isolation Patient Infection Status None to display Nurse Assessment: Last Vital Signs: BP 129/66 Pulse 78 Temp 97.9 F (36.6 C) (Oral) Resp 12 Ht 5' 5 (1.651 m) Wt 146 lb (66.2 kg) SpO2 100% BMI 24.30 kg/m Last documented pain score (0-10 scale): Pain Level: 9 Last Weight: Wt Readings from Last 1 Encounters: 10/06/20 146 lb (66.2 kg) Mental Status: {IP PT MENTAL STATUS:} IV Access: { KAYLIN IV ACCESS:873535210} Nursing Mobility/ADLs: Walking {CHP DME ADLs:567666801} Transfer {CHP DME ADLs:628487553} Bathing {CHP DME ADLs:517547974} Dressing {CHP DME ADLs:096685380} Toileting {CHP DME ADLs:994905852} Feeding {CHP DME ADLs:271452941} Aoc Director Combat Plans Officer {CHP DME ADLs:816278630} Med Delivery {[facility] MED Delivery:055931288} Wound Care Documentation and Therapy: Elimination: Continence: Bowel: {YES / NO:} Bladder: {YES / NO:} Urinary Catheter: {Urinary Catheter:823317830} Colostomy/Ileostomy/Ileal Conduit: {YES / NO:} Date of Last BM: No intake or output data in the 24 hours ending 10/06/20 1247 No intake/output data recorded. Safety Concerns: { KAYLIN Safety Concerns:705731242} Impairments/Disabilities: {[facility] Impairments/Disabilities:674231174} Nutrition Therapy: Current Nutrition Therapy: { KAYLIN Diet List:528402541} Routes of Feeding: {CHP DME Other Feedings:408175815} Liquids: {Seismographer liquid thickness:23933} Daily Fluid Restriction: {CHP DME Yes amt example:686325693} Last Modified Barium Swallow with Video (Video Swallowing Test): {Done Not Done Date:} Treatments at the Time of Hospital Discharge: Respiratory Treatments: Oxygen Therapy: {Therapy; copd oxygen:98200} Ventilator: {[facility] Vent List:436302389} Rehab Therapies: {THERAPEUTIC INTERVENTION:1645900419} Weight Bearing Status/Restrictions: {MH CC Weight Bearin} Other Medical Equipment (for information only, NOT a DME order): {EQUIPMENT:258613992} Other Treatments: Patient's personal belongings (please select all that are sent with patient): {CHP DME Belongings:230781442} RN SIGNATURE: {Esignature:166763138} CASE MANAGEMENT/SOCIAL WORK SECTION Inpatient Status Date: Readmission Risk Assessment Score: Readmission Risk Risk of Unplanned Readmission: 0 Discharging to Facility/ Agency Name: Address: Phone: Fax: Dialysis Facility (if applicable) Name: Address: Dialysis Schedule: Phone: Fax: Commissioner Of Relocation Services/Director Script signature: {Esignature:328094675} PHYSICIAN SECTION Prognosis: {Prognosis:6823274047} Condition at Discharge: { Patient Condition:509714891} Rehab Potential (if transferring to Rehab): {Prognosis:9684683255} Recommended Labs or Other Treatments After Discharge: Physician Certification: I certify the above information and transfer of Joe Rajput is necessary for the continuing treatment of the diagnosis listed and that she requires {Admit to AppropriateLevel of Care:71827} for {GREATER/LESS:424237948} 30 days. Update Admission H&P: {CHP DME Changes in HandP:294766946} PHYSICIAN SIGNATURE: {Esignature:377098433} * Additional Instructions* Yan Lowe MD - 10/06/2020 Please contact your physician concerning follow-up recheck and review of culture tests * Attachments The following attachments cannot be sent through Care Everywhere. * Ovarian Cyst: Functional (Filipino) * Abdominal Pain (Filipino) documented in this encounter Assessments Diagnosis Lower abdominal pain- Primary Abdominal pain, other specified site Cyst of right ovary Other and unspecified ovarian cyst Chief Complaint and Reason for Visit Chief Complaint Hepatitis C Chief Complaint abd pain Additional Source Comments INFORMATION SOURCE (unrecogn ized section and content) DATE CREATED AUTHOR 03/23/2018 [facility] DATE CREATED AUTHOR AUTHOR'S ORGANIZ ATION 10/10/2020 [facility] DATE CREATED AUTHOR AUTHOR'S ORGANIZ ATION 10/11/[address] [facility] DATE CREATED AUTHOR AUTHOR'S ORGANIZ ATION 02/11/2023 [facility] DATE CREATED AUTHOR AUTHOR'S ORGANIZ ATION 03/24/2023 [facility] DATE CREATED AUTHOR AUTHOR'S ORGANIZ ATION 06/07/2023 Julio Malik [facility] DATE CREATED AUTHOR AUTHOR'S ORGANIZ ATION 02/12/2024 [facility] DATE CREATED AUTHOR AUTHOR'S ORGANIZ ATION 04/28/2024 [facility] Reason for Visit (unrecogniz ed section and content) Reason Comments Abdominal Pain c/o abdominal pain a nd loss of taste and smell this morning. Concern For COVID-19 Reason Comments Suicidal thoughts of cutting self Surgical History (unrecogniz ed section and content) Surgery Date Site/Laterality Comments CHOLECYSTECTOMY APPENDECTOMY OTHER SURGICAL HISTORY 09/28/2013 - 09/27/2014 ovarian scope Medical History (unrecognize d section and content) Medical History Date Comments Hepatitis C 2015 Neuropathy PCOS (polycystic ovarian syndrome) Bipolar II disorder (HCC) Right ovarian cyst Care Teams (unrecognized sec tion and content) Team Status: Active Member Role Status Dates PHYSICIAN NO FAMILY Primary Care Provider Active Team Status: Inactive Member Role Status Dates PHYSICIAN NO FAMILY Primary Care Provider Active Start: February 01, 2024 End: February 01, 2024 Juventino Cheung APRN Emergency Provider Active Start: February 01, 2024 End: February 01, 2024 Team Status: Active Member Role Status Dates Shaikh Jack MD Primary Care Provider Active Team Status: Inactive Member Role Status Dates Feng Barros MD Attending Provider Active Shaikh Jack MD Primary Care Provider Active Goals (unrecognized section and content) Goals may be documented in a n alternate section FOR RECORDS PERTAINING TO PATIENTS WHO ARE OR HAVE BEEN ENROLLED IN A CHEMICAL DEPENDENCY/SUBSTANCEABUSE PROGRAM, SOME INFORMATION MAY BE OMITTED. This clinical summary was aggregated from multiple sources. Caution should be exercised in using it in the provision of clinical care. This summary normalizes information from multiple sources, and as a consequence, information in this document may materially change the coding, format and clinical context of patient data. In addition, data may be omitted in some cases. CLINICAL DECISIONS SHOULD BE BASED ON THE PRIMARY CLINICAL RECORDS. [facility] [employer] [facility]. provides no warranty or guarantee of the accuracy or completeness of information in this document.
--- NOTE | 2024-04-29 12:30 | ED.GENADUL1 ---
HPI HPI - General Adult General Chief complaint: Skin/Abscess/Foreign Body Stated complaint: POST OP COMPLICATIONS Time Seen by Provider: 04/29/24 12:16 Source: patient Mode of arrival: walk-in Limitations: no limitations History of Present Illness HPI narrative: This patient is here with bleeding from an incision. She recently had a laparoscopic surgical procedure by her UTILIZATION MANAGEMENT RN. I have reviewed the surgical records and there did not seem to be any intraoperative complications or bleeding. She had normal hemoglobin preoperatively. Her vital signs are stable she has not had a fever at home. She is not taking antibiotics. She does not describe any purulent drainage or odor type of discharge from her wound. She is been restricting her activities but is moving about. She has not seen her provider since the surgical procedure. Related Data Home Medications ?Medication ?Instructions ?Recorded ?Confirmed buprenorphine 8.6 mg-naloxone 2.1 1 tab sublingual DAILY 04/06/24 04/29/24 mg sublingual tablet (Zubsolv) Previous Rx's ?Medication ?Instructions ?Recorded ibuprofen 800 mg tablet 800 mg PO Q8H PRN pain 14 days #40 04/15/24 tabs Allergies Allergy/AdvReac Type Severity Reaction Status Date / Time Penicillins Allergy Hives Verified 04/06/24 11:26 shellfish derived Allergy Hives Verified 04/06/24 11:26 doxycycline AdvReac Vomiting Verified 04/06/24 11:27 Opioid HPI Opioid Management Most Recent Opioid Data: Last Pain Scale 4 04/15/24 13:51 Ur Phencyclidine Scrn Negative (NEGATIVE) 04/15/24 07:52 PFSH PFSH Medical History (Updated 04/29/24 @ 13:30 by Jony Thakur MD) Anemia ?D64.9 - Anemia, unspecified (ICD-10) Depression ?F32.A - Depression, unspecified (ICD-10) PTSD (post-traumatic stress disorder) ?F43.10 - Post-traumatic stress disorder, unspecified (ICD-10) Anxiety ?F41.9 - Anxiety disorder, unspecified (ICD-10) Panic attacks ?F41.0 - Panic disorder [episodic paroxysmal anxiety] (ICD-10) History of incarceration ?Z78.9 - Other specified health status (ICD-10) COVID-19 ?U07.1 - COVID-19 (ICD-10) Migraine ?G43.909 - Migraine, unspecified, not intractable, without status migrainosus (ICD-10) Constipation ?K59.00 - Constipation, unspecified (ICD-10) Seizure-like activity ?R56.9 - Unspecified convulsions (ICD-10) Hypotension ?I95.9 - Hypotension, unspecified (ICD-10) Syncopal episodes ?R55 - Syncope and collapse (ICD-10) PCOS (polycystic ovarian syndrome) ?E28.2 - Polycystic ovarian syndrome (ICD-10) Hepatitis C ?B19.20 - Unspecified viral hepatitis C without hepatic coma (ICD-10) Dizziness ?R42 - Dizziness and giddiness (ICD-10) Edentulous ?K08.109 - Complete loss of teeth, unspecified cause, unspecified class (ICD-10) History of drug abuse in remission ?F19.11 - Other psychoactive substance abuse, in remission (ICD-10) Surgical History (Updated 04/06/24 @ 11:40 by Mary Gage NP) H/O ovarian cystectomy ?Z98.890 - Other specified postprocedural states (ICD-10) ?Z87.42 - Personal history of other diseases of the female genital tract (ICD-10) History of laparoscopy ?Z98.890 - Other specified postprocedural states (ICD-10) History of dilation and curettage ?Z98.890 - Other specified postprocedural states (ICD-10) History of cholecystectomy ?Z90.49 - Acquired absence of other specified parts of digestive tract (ICD-10) History of appendectomy ?Z90.49 - Acquired absence of other specified parts of digestive tract (ICD-10) History of myringotomy ?Z98.890 - Other specified postprocedural states (ICD-10) H/O adenoidectomy ?Z90.89 - Acquired absence of other organs (ICD-10) Family History (Updated 04/06/24 @ 11:40 by Mary Gage NP) Other Family history of COPD (chronic obstructive pulmonary disease) Family history of aneurysm Family history of breast cancer Family history of diabetes mellitus Family history of hypertension Social History (Updated 04/15/24 @ 08:13 by Elizabeth Leon) Within the past year, how often did you have a drink containing alcohol: never Score interpretation: A score less than 3 is consistent with normal alcohol consumption. Smoking status: Former smoker Non-prescribed substance use: cannabis (any form) Non-prescribed substance use details: YESTERDAY Previous occupational history: Factory Highest level of school completed/degree received: high school graduate Exam Narrative Exam Narrative: Awake alert pleasant no obvious distress she is not tachycardic skin is warm and dry with no evidence of dehydration or anemia. Problem focused examination abdomen there is no abdominal wall cellulitis or lymphangitis. The laparoscopic incisions are healing well. The central incision has some dried blood around it. Palpation of the area discloses no large fluid or mass collection. She was told that she had a hematoma previously when she did see her provider. There is a scant amount of blood on her new Band-Aid that she apply just shortly before arrival here. She said she used surgical dressings before she arrived here. Constitutional Vital Signs, click to edit/add: Last Vital Signs Temp 98.3 F 04/29/24 12:11 Pulse 77 04/29/24 12:11 Resp 18 04/29/24 12:11 BP 110/60 04/29/24 12:11 Pulse Ox 98 04/29/24 12:11 O2 Del Method Room Air 04/29/24 12:11 Course Vital Signs Vital signs: Vital Signs Temperature 98.3 F 04/29/24 12:11 Pulse Rate 77 04/29/24 12:11 Respiratory Rate 18 04/29/24 12:11 Blood Pressure 110/60 04/29/24 12:11 Pulse Oximetry 98 04/29/24 12:11 Oxygen Delivery Method Room Air 04/29/24 12:11 Temperature 98.3 F 04/29/24 12:11 Pulse Rate 77 04/29/24 12:11 Respiratory Rate 18 04/29/24 12:11 Blood Pressure 110/60 04/29/24 12:11 Pulse Oximetry 98 04/29/24 12:11 Oxygen Delivery Method Room Air 04/29/24 12:11 Medical Decision Making MDM Narrative Medical decision making narrative: This patient's hemoglobin today is better than it was preoperatively. I feel this drainage that she has is actually a normal physiological breakdown of her previous hematoma. She was reassured and will follow-up with her UTILIZATION MANAGEMENT RN GEN. Lab Data Labs: Lab Results 04/29/24 Range/Units 12:30 WBC 7.6 (4.0-11.0) 10^3/uL RBC 4.22 (4.20-5.40) 10^6/uL Hgb 13.4 (12.0-16.0) g/dL Hct 38.9 (36.0-48.0) % MCV 92.2 (81.0-99.0) fL MCH 31.8 (26.7-34.0) pg MCHC 34.4 (29.9-35.2) g/dL RDW 12.2 (11.0-15.0) % Plt Count 207 (150-450) 10^3/uL MPV 10.3 (9.5-13.5) fL Neut % (Auto) 65.6 (43.0-75.0) % Lymph % (Auto) 24.8 (20.5-60.0) % [place] % (Auto) 6.6 (1.7-12.0) % Eos % (Auto) 2.5 (0.9-7.0) % Baso % (Auto) 0.4 (0.2-2.0) % Neut # (Auto) 5.0 (1.4-6.5) 10^3/uL Lymph # (Auto) 1.9 (1.2-3.8) 10^3/uL [place] # (Auto) 0.5 (0.3-0.8) 10^3/uL Eos # (Auto) 0.2 (0.0-0.7) 10^3/uL Baso # (Auto) 0.0 (0.0-0.1) 10^3/uL Abs Immat Gran (auto) 0.01 (0.00-0.03) 10^3/uL Imm/Tot Granulo (auto) 0.1 (0.0-0.5) % Discharge Plan Discharge Stand Alone Forms: Portal Instructions Chief Complaint: Skin/Abscess/Foreign Body Clinical Impression: Healing of postoperative wound Patient Disposition: Home, Self-Care Time of Disposition Decision: 13:30 Prescriptions / Home Meds: No Action Zubsolv 8.6-2.1 mg tablet, sublingual 1 tab SUBLINGUAL DAILY ibuprofen 800 mg tablet 800 mg PO Q8H PRN (Reason: pain) 14 Days Qty: 40 0RF Print Language: Armenian Additional Instructions: Follow up with your UTILIZATION MANAGEMENT RN as needed Referrals: Physician,Non-Staff, MD [Primary Care Provider] - 1 week
[2024-04-29 12:37] LABS: Basophils Percent Auto 0.4 % (0.2-2.0); Eosinophils Absolute Auto 0.2 10^3/uL (0.0-0.7); Eosinophils Percent Auto 2.5 % (0.9-7.0); Hematocrit 38.9 % (36.0-48.0); Hemoglobin 13.4 g/dL (12.0-16.0); Immature Granulocytes Abs Auto 0.01 10^3/uL (0.00-0.03); Immature Granulocytes Pct Auto 0.1 % (0.0-0.5); Lymphocytes Absolute Auto 1.9 10^3/uL (1.2-3.8); Lymphocytes Percent Auto 24.8 % (20.5-60.0); Mean Corpuscular HGB Conc 34.4 g/dL (29.9-35.2); Mean Corpuscular Hemoglobin 31.8 pg (26.7-34.0); Mean Corpuscular Volume 92.2 fL (81.0-99.0); Mean Platelet Volume 10.3 fL (9.5-13.5); Monocytes Absolute Auto 0.5 10^3/uL (0.3-0.8); Monocytes Percent Auto 6.6 % (1.7-12.0); Neutrophils Percent Auto 65.6 % (43.0-75.0); Platelet Count 207 10^3/uL (150-450); Red Blood Count 4.22 10^6/uL (4.20-5.40); Red Cell Distribution Width 12.2 % (11.0-15.0); White Blood Count 7.6 10^3/uL (4.0-11.0)
== END 2024-04-29 13:35 | disposition home or self-care (01) ==
PROVIDERS: Emergency Provider Emergency Medicine Emergency Medical Services
DX: Z48.816 Encounter for surgical aftercare following surgery on the genitourinary system (principal); Z87.891 Personal history of nicotine dependence
CPT/HCPCS: 36415; 85025; 99283

== ENCOUNTER 2024-12-27 12:53 | Outpatient (OUT) | payer BC, SELFPAY ==
--- NOTE | 2024-12-27 12:56 | US_ITS ---
The [address] [address] Patient Name: JOE LINARES MRN: [id number] date: 1995 Sex: F Assigned Patient Location: Current Patient Location: [place] Accession/Order Number: [id number] Exam Date: 12/27/2024 13:47 Report Date: 12/27/2024 13:49 At the request of: EUGENE MAYERS DO Procedure: US pelvis w/ transvaginal Transabdominal and transvaginal pelvic ultrasound HISTORY: Polycystic ovarian syndrome. Uterus is anteverted. Uterus measures 6.8 x 2.8 x 3.9 cm. The total combined thickness of the endometrial complex is 4 mm. The right ovary measures 3.0 x 1.9 x 3.0 cm and has a resistive index of 0.41. Multiple anechoic follicles identified. Left ovary measures 3.1 x 2.2 x 2.9 cm with resistive index of 0.47. Multiple subcentimeter anechoic left ovarian follicles identified. No adnexal mass. No free fluid. Color-flow both ovaries. US/US pelvis w/ transvaginal IMPRESSION: Bilateral ovarian follicles. Impression dictated by: José Antonio Wilkes M.D.12/27/2024 1:49 PM Dictation Location: [place] [address] Electronically authenticated by: [id number] Y Date: 12/27/2024 13:49
[2024-12-27 13:51] LABS: Basophils Percent Auto 0.7 % (0.2-2.0); Eosinophils Absolute Auto 0.1 10^3/uL (0.0-0.7); Eosinophils Percent Auto 2.4 % (0.9-7.0); Hematocrit 37.4 % (36.0-48.0); Hemoglobin 12.8 g/dL (12.0-16.0); Lymphocytes Absolute Auto 2.3 10^3/uL (1.2-3.8); Lymphocytes Percent Auto 49.7 % (20.5-60.0); Mean Corpuscular HGB Conc 34.2 g/dL (29.9-35.2); Mean Corpuscular Hemoglobin 31.5 pg (26.7-34.0); Mean Corpuscular Volume 92.1 fL (81.0-99.0); Mean Platelet Volume 10.7 fL (9.5-13.5); Monocytes Absolute Auto 0.3 10^3/uL (0.3-0.8); Monocytes Percent Auto 6.1 % (1.7-12.0); Neutrophils Absolute Auto 1.9 10^3/uL (1.4-6.5); Neutrophils Percent Auto 41.1 % (43.0-75.0); Platelet Count 193 10^3/uL (150-450); Red Blood Count 4.06 10^6/uL (4.20-5.40); Red Cell Distribution Width 11.7 % (11.0-15.0); White Blood Count 4.6 10^3/uL (4.0-11.0)
[2024-12-27 13:57] LABS: Estimated Average Glucose 108 mg/dL; Glycohemoglobin A1C 5.4 % (4.5-6.2)
[2024-12-27 14:47] LABS: Free T4 0.85 ng/dL (0.76-1.46)
[2024-12-27 14:51] LABS: Thyroid Stimulating Hormone 2.377 uIU/mL (0.358-3.740)
[2024-12-27 14:52] LABS: HCG Quantitative <1 mIU/mL
[2024-12-28 04:07] LABS: DHEA-Sulfate 88.5 ug/dL (84.8-378.0); FSH 7.1 mIU/mL (.); Luteinizing Hormone(LH) 6.2 mIU/mL (.)
== END 2024-12-27 12:54 | disposition home or self-care (01) ==
LOC: US 12:53
PROVIDERS: Visit Provider Obstetrics & Gynecology
DX: E28.2 Polycystic ovarian syndrome (principal); N92.6 Irregular menstruation, unspecified
CPT/HCPCS: 36415; 76830; 76856; 82626; 82627; 83001; 83002; 83036; 84439; 84443; 84702; 85025